=== PATIENT | female | born 1955 | race Caucasian/White ===

== ENCOUNTER 2024-03-01 12:49 | Outpatient (AMB) | payer MEDICARE, SELFPAY ==
--- NOTE | 2024-03-01 12:51 | MHC.OFFVIS ---
Intake Visit Reasons: New Pt - Right Shoulder Pain Intake Note: Zoë is a 68 year old left hand dominant female who presents today as a new patient for a evaluation of her right shoulder pain. Patient reports ongoing pain for a couple months. No previous treatment. She states that she had an shingles and she is still having constant pain. Pain is mainly on the anterior aspect of the shoulder and it moves down to her bicep. Pain is worse when getting dress and putting deodorant. Patient is interested in a cortisone injection. Allergies No Known Allergies Allergy (Verified 03/01/24 13:03) Medication List - Last Reconciled 03/01/24 by Shannon Flower PA-C bupropion HCl SR (Wellbutrin SR) 150 mg PO QAM cholecalciferol (vitamin D3) 50 mcg PO DAILY clonazepam 0.5 mg PO DAILY CPAP As directed hydrochlorothiazide 25 mg PO DAILY lisinopril 20 mg PO DAILY pregabalin (Lyrica) 75 mg PO DAILY trazodone 25 mg PO BEDTIME PRN vortioxetine (Trintellix) 20 mg PO DAILY HPI HPI New Pt - Right Shoulder Pain: Details: 68 yo female presents to the office today eval right shoulder pain. She states the pain started over a year ago, she remembers trying to put on her deodorant and as she was reaching she felt pain. She has tried swimming and states she has been unable to put her arm in certain positions due to the pain, she has pain with lifting the arm to hang clothes. She states she does use her left hand to assist her right with certain motions. She has had no treatment to date. [facility] Social History (Updated 03/01/24 @ 13:08 by Catrachito George) Alcohol intake: never Patient Tobacco Use Status: Current everyday Tobacco user Review of Systems Const All systems reviewed & are unremarkable except as noted in HPI and below Physical Exam Const General: cooperative and no acute distress Orientation/consciousness: patient oriented x3 Resp Effort & Inspection: normal respiratory effort and able to speak in complete sentences Cardio Peripheral pulses: Peripheral pulses 2+ throughout Neuro General: patient oriented x3 Extrem Other: Right shoulder is normal to inspection she has full range of motion in all planes. No RTC weakness on exam. NVI. Office Procedures Joint Injection/Drain Joint Injection/Drain Primary Site: right shoulder Prep: site was prepped using aseptic technique, ethochloride spray was applied and injection warnings given Injected: 80 mg of, DepoMedrol, with 8 mL of, 1% plain lidocaine and in the subcromial space Approach Used: posterolateral Procedure: The patient tolerated the procedure well and there was some relief with the local anesthesia Coding 70681 - Glenohumeral/Tronchanteric Bursa/Intraarticular Procedure code (CPT) selection complete Results Reviewed Results Reviewed: Xrays were obtained in the office today and personally reviewed by me of the right shoulder show ALYSSIA j oa Assessment & Plan Assessment & Plan (1) Osteoarthritis of glenohumeral joint: Code(s): M19.019 - Primary osteoarthritis, unspecified shoulder Category: Medical Qualifiers: Laterality: right Qualified Code(s): M19.011 - Primary osteoarthritis, right shoulder Plan: We discussed options today which include continued conservative management with cortisone injections and physical therapy. She does have significant arthritis on x-rays however given she is not significantly impaired with functionality I do not feel she has a candidate for total shoulder arthroplasty at this time. We discussed benefits of steroid injection. The patient did consent to move forward with the right shoulder injection, which was tolerated well.? I recommended rest, ice and elevation and OTC antiinflammatories prn for discomfort. If symptoms persist over the next 6-8 weeks, they will contact our office, otherwise, prn Orders: Orders XR shoulder RT min 2V Today M25.511 - Pain in right shoulder Coding Level of Care Code New Pt Level 3 (11007) Diagnoses Osteoarthritis of right glenohumeral joint M19.011 Laterality: right CPT Codes Coding - Joint 7: 30766 - Glenohumeral/Tronchanteric Bursa/Intraarticular ([id number])
== END 2024-03-01 14:03 | disposition home or self-care (01) ==
PROVIDERS: PCP Internal Medicine; Visit Provider Physician Assistant
DX: M19.011 Primary osteoarthritis, right shoulder (principal)
CPT/HCPCS: 20610; 99203

== ENCOUNTER 2024-03-01 16:04 | Outpatient (REF) | payer MEDICARE, SELFPAY ==
--- NOTE | ~2024-03-01 | XR_ITS ---
EXAMINATION: XR SHOULDER, RIGHT CLINICAL INFORMATION: Pain in right shoulder COMPARISON: None available. TECHNIQUE: AP neutral, scapular Y and axillary views of the right shoulder. FINDINGS: The bones are mildly diffusely demineralized. No fracture or dislocation. There is severe narrowing of the glenohumeral joint with [id number]-[id number] appearance and subchondral sclerosis of the adjacent articular surfaces. Small marginal osteophytes are seen inferiorly extending off the humeral head and the glenoid fossa. Small calcification is seen adjacent to the humeral head consistent with calcific tendinitis. There is moderate degenerative change of the acromioclavicular joint. XR/XR shoulder RT min 2V IMPRESSION: 1. Severe osteoarthritis of the glenohumeral joint. 2. Calcific tendinitis. 3. Moderate degenerative change of the acromioclavicular joint.
== END 2024-03-01 16:05 | disposition home or self-care (01) ==
LOC: HO.HOSX 16:04
PROVIDERS: Visit Provider Physician Assistant
DX: M19.011 Primary osteoarthritis, right shoulder (principal)
CPT/HCPCS: 20610; 73030; 99202; J1010

== ENCOUNTER 2024-03-28 08:58 | Outpatient (AMB) | payer MEDICARE, SELFPAY ==
--- NOTE | 2024-03-27 15:59 | A.OFFPC_ITS ---
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 Accompanied by: Self / Same As Patient Allergies No Known Allergies Allergy (Verified 03/28/24 09:15) Medication List - Last Reconciled 04/02/24 by Rosalva Stevens MD bupropion HCl 75 mg PO DAILY 7 days cholecalciferol (vitamin D3) 50 mcg PO DAILY clonazepam 0.5 mg PO DAILY PRN CPAP As directed duloxetine 30 mg PO DAILY 7 days duloxetine 60 mg PO DAILY 90 days hydrochlorothiazide 25 mg PO DAILY lisinopril 20 mg PO DAILY vortioxetine (Trintellix) 20 mg PO DAILY Tobacco use date assessed: 03/28/24 Fall risk assessment: 2 + Falls in past year Last assessed Fall Risk: 03/28/24 Dental Screening Dental Screen Date: 03/28/24 Did you have a dental visit in the last 12 months?: Yes Did you have a dental problem in the last 6 months where you did not have access to dental care?: No Was dental information given to patient?: Patient has dentist HPI HPI Comments History of Present Illness Details The patient is a 68 y/o female with pmh post herpetic neuralgia, htn, ckd, anxiety/depression, prediabetes, yaniv on cpap Chronic pain. Post herpetic neuralgia. January 2023 V1. Chronic OA-hips, knees, back Anxiety/depression: Continues with therapist. Two children -drug issues. CV: on lisinopril. hctz. BP controlled. Saw Dr Davis in past following TRUNG. Contributed to NSAID use PFSH Medical History (Updated 03/28/24 @ 09:28 by Rosalva Stevens MD) Shingles Acid reflux Hx of mammogram Severe obesity Seasonal allergies Post herpetic neuralgia Obstructive sleep apnea Anxiety Depression Surgical History Hx of colonoscopy History of right hip replacement Hx of endoscopy Family History Mother Cardiac arrest Father Cancer of prostate Sister Multiple sclerosis Arthritis Social History Housing: House Alcohol intake: never Patient Tobacco Use Status: Current everyday Tobacco user Cigarette Packs Per Day: 0.25 Cigarettes Per Day: 5 Years Smoked: 15 e-Cigarette/Vaping Use: Never Used service: No 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al status: retired Cognitive needs: No Hearing needs: No Vision needs: No Questionnaire PHQ-9 Over the last 2 weeks, how often have you been bothered by any of the following problems? 1. Little interest or pleasure in doing things: several days 2. Feeling down, depressed, or hopeless: several days 3. Trouble falling or staying asleep, or sleeping too much: several days 4. Feeling tired or having little energy: several days 5. Poor appetite or overeating: not at all 6. Feeling bad about yourself - or that you are a failure or have let yourself or your family down: not at all 7. Trouble concentrating on things, such as reading the newspaper or watching television: not at all 8. Moving or speaking so slowly that other people could have noticed. Or the opposite - being so fidgety or restless that you have been moving around a lot more than usual: not at all 9. Thoughts that you would be better off or of hurting yourself in some way: not at all Total score: 4 Depression Screening Interpretation: Positive Depression Screening Follow-up: Existing condition Depression Screening Done: Yes 64035 - PHQ-9 Billing: Yes Source: Developed by Drs. Roly Hamilton, Patty Hadley, Nathaniel Grimes and colleagues, with an educational sarah from [employer]. Thrive Questionnaire Date Thrive assessed: 03/28/24 I am a: Patient What is your living situation today?: I have a steady place to live Within the past 12 months, did the food you bought not last and you didn't have the money to get more?: Never true Within the past 12 months, did you worry whether your food would run out before you got money to buy more?: Never true Do you have trouble paying for medicines?: No Do you have trouble getting transportation to medical appointments?: No Do you have trouble paying your heating and electricity bill?: No Do you have trouble taking care of your child, family member or friend?: No Do you have trouble with day-to-day activities such as bathing, preparing meals, shopping, managing finances, etc.?: No Are you currently unemployed and looking for a job?: No Are you interested in more education?: No Please select the resources that you would like help with: None Currently or been in a relationship where the following occur: no concerns reported THRIVE Score: 0 AUDIT C Alcohol Use Questionnaire (AUDIT-C) 1. How often do you have a drink containing alcohol?: Never 3. How often do you have six or more drinks on one occasion?: Never Total Score: 0 DARIA-7 AMB Questionnaire DARIA-7 Date DARIA - 7 assessed: 03/28/24 Feeling nervous, anxious, or on edge: 1 = Several days Not being able to stop or control worryin = Not at all Worrying too much about different things: 1 = Several days Trouble relaxin = Not at all Being so restless that it is hard to sit still: 0 = Not at all Becoming easily annoyed or irritable: 0 = Not at all Feeling afraid as if something awful might happen: 0 = Not at all Total DARIA-7 score (0-4 normal; 5-9 mild; 10-14 moderate; 15-21 severe): 2 Source: Developed by Drs. Roly Hamilton, Patty Hadley, Nathaniel Grimes and colleagues, with an educational sarah from [employer]. DARIA-7 Assessment Billing DARIA-7 Assessment Tool: DARIA-7 Assessment 57398 Review of Systems Const Details: ROS CONSTITUTIONAL: Denies weight loss, fever and chills. HEENT: Denies changes in vision and hearing. RESPIRATORY: Denies SOB and cough. CV: Denies palpitations and CP GI: Denies abdominal pain, nausea, vomiting and diarrhea. : Denies dysuria and urinary frequency. MSK: Denies new myalgia and joint pain. SKIN: Denies rash and pruritus. NEUROLOGICAL: Denies headache PSYCHIATRIC: Denies recent changes in mood. Physical exam (Primary Care) Vital Signs: Last Vital Signs Temp 98 F 03/28/24 09:05 Pulse 78 03/28/24 09:05 Resp 14 03/28/24 09:05 BP 110/74 03/28/24 09:05 Pulse Ox 99 03/28/24 09:05 Oxygen Delivery Method Room Air 03/28/24 09:05 PHYSICAL EXAM: GENERAL: Alert and oriented x 3. NAD EYES: EOMI. Anicteric. HENT: Moist mucous membranes. No scleral icterus. No cervical lymphadenopathy. LUNGS: Clear to auscultation bilaterally. CARDIOVASCULAR: Regular rate and rhythm. No murmur. No JVD. ABDOMEN: Soft, non-tender +bs EXTREMITIES: No edema. Non-tender. SKIN: No rashes or lesions. Warm. NEUROLOGIC: No focal neurological deficits. CN II-XII grossly intact PSYCHIATRIC: Cooperative. Appropriate mood and affect BMI result Body Mass Index 31.8 Tobacco/Smoking Status: Tobacco use Status Tobacco use date assessed 03/28/24 03/28/24 09:19 Patient Tobacco Use Status Current everyday Tobacco 03/27/24 16:06 e-Cigarette/Vaping Use Never Used 03/28/24 09:19 PHQ-9: PHQ-9 Score PHQ-9: Total score 4 03/28/24 12:01 Depression Screening Interpretation: Positive Depression Screening Follow-up: Existing condition Thrive Assessment: Date of Thrive Assessment Date Thrive assessed 03/28/24 03/28/24 09:19 Currently or been in a relationship where the following occur: no concerns reported Assessment and Plan Assessment & Plan (1) Hypertension: Code(s): I10 - Essential (primary) hypertension Qualifiers: Hypertension type: primary hypertension Qualified Code(s): I10 - Essential (primary) hypertension Plan: Adequately controlled on current medication (2) Depression: Code(s): F32.A - Depression, unspecified Qualifiers: Active/Remission status: in partial remission Depression Type: major depressive disorder Major depression recurrence: recurrent Qualified Code(s): F33.41 - Major depressive disorder, recurrent, in partial remission (3) Post herpetic neuralgia: Code(s): B02.29 - Other postherpetic nervous system involvement (4) Obstructive sleep apnea: Code(s): G47.33 - Obstructive sleep apnea (adult) (pediatric) Plan: continue cpap Orders: Orders PT Evaluation and Treatment 03/28/24 M19.011 - Primary osteoarthritis, right shoulder, M25.511 - Pain in right shoulder Medications: New bupropion HCl 75 mg PO DAILY 7 days 7 tabs 0RF duloxetine Take for one week then increase to 60mg daily 30 mg PO DAILY 7 days 7 caps 0RF duloxetine 60 mg PO DAILY 90 days 90 caps 3RF Coding Level of Care Code Tele Est Pt Level 4 (77268) Complex EM visit Add On G2211 Diagnoses Primary hypertension I10 Hypertension type: primary hypertension Recurrent major depressive disorder, in partial remission F33.41 Active/Remission status: in partial remission Depression Type: major depressive disorder Major depression recurrence: recurrent Post herpetic neuralgia B02.29 Obstructive sleep apnea G47.33 Additional Codes DARIA-7 Assessment Billing - DARIA-7 Assessment Tool: DARIA-7 Assessment 26877 ([id number])
[2024-03-28 09:05] VITALS: BP 110/74; PULSE 78; RESP 14; TEMP 36.6; O2SAT 99; BMI 31.8
== END 2024-03-28 10:08 | disposition home or self-care (01) ==
PROVIDERS: PCP Internal Medicine; Visit Provider Internal Medicine
DX: I10 Essential (primary) hypertension (principal); F33.41 Major depressive disorder, recurrent, in partial remission; B02.29 Other postherpetic nervous system involvement; G47.33 Obstructive sleep apnea (adult) (pediatric)
CPT/HCPCS: 99214; G2211

== ENCOUNTER 2024-06-05 17:06 | Outpatient (AMB) | payer MEDICARE, SELFPAY ==
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
== END 2024-06-05 17:07 | disposition home or self-care (01) ==
LOC: HO.HOP 17:07
PROVIDERS: PCP Internal Medicine; Visit Provider Clinical Nurse Specialist Psychiatric/Mental Health
DX: F33.1 Major depressive disorder, recurrent, moderate (principal); F41.1 Generalized anxiety disorder; F41.0 Panic disorder [episodic paroxysmal anxiety]
CPT/HCPCS: 99213

== ENCOUNTER → 2024-06-05 17:06 | Outpatient (BNVA) | payer MEDICARE, SELFPAY | PROVIDERS: PCP Internal Medicine; Visit Provider Clinical Nurse Specialist Psychiatric/Mental Health | DX: F33.1 Major depressive disorder, recurrent, moderate (principal); F41.1 Generalized anxiety disorder; F41.0 Panic disorder [episodic paroxysmal anxiety] | CPT/HCPCS: 99212 ==

== ENCOUNTER 2024-07-11 10:31 | Outpatient (AMB) | payer MEDICARE, SELFPAY ==
[2024-07-11 11:02] VITALS: BP 132/70; PULSE 82; RESP 12; O2SAT 98; BMI 32.2
--- NOTE | 2024-07-11 11:02 | A.OFFPC_ITS ---
Vital Signs 07/11/24 11:02 Height 5 ft 1.5 in Weight 173 lb BMI 32.2 BP 132/70 Blood Pressure Location Rt brachial Position Sitting Respiration 12 Pulse 82 Pulse Source Pulse Oximeter Pulse Oximetry (%) 98 Oxygen Delivery Method Room Air Intake Visit Reasons: 3 month follow up/ wellness Accompanied by: Self / Same As Patient Allergies No Known Allergies Allergy (Verified 07/11/24 11:05) Tobacco use date assessed: 03/28/24 Fall risk assessment: No Falls in past year Last assessed Fall Risk: 07/11/24 Dental Screening Dental Screen Date: 03/28/24 HPI HPI Comments History of Present Illness Details The patient is a 68 y/o female with pmh post herpetic neuralgia, htn, ckd, anxiety/depression, prediabetes, yaniv on cpap Chronic pain. Post herpetic neuralgia. January 2023 V1. 2 years and 4 months since shingles. On duloxetine. Chronic OA-hips, knees, back Went to the hand surgeon- started PT on the right shoulder. 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 Seeing Dr Castano. Got three cortisone injections in the back. Numbness pain intermittently down to the right shoulder in the right pinky. 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 Anxiety/depression: Continues with therapist. Two children -drug issues. Requests referral CV: on hctz. BP controlled. Saw Dr Davis in past following TRUNG. Contributed to NSAID use. Goes annually ROS CONSTITUTIONAL: Denies weight loss, fever and chills. HEENT: Denies changes in vision and hearing. RESPIRATORY: Denies SOB and cough. CV: Denies palpitations and CP GI: Denies abdominal pain, nausea, vomiting and diarrhea. : Denies dysuria and urinary frequency. MSK: Denies new myalgia and joint pain. SKIN: Denies rash and pruritus. NEUROLOGICAL: Denies headache PSYCHIATRIC: Denies recent changes in mood. PHYSICAL EXAM: GENERAL: Alert and oriented x 3. NAD EYES: EOMI. Anicteric. HENT: Moist mucous membranes. No scleral icterus. No cervical lymphadenopathy. LUNGS: Clear to auscultation bilaterally. CARDIOVASCULAR: Regular rate and rhythm. No murmur. No JVD. ABDOMEN: Soft, non-tender +bs EXTREMITIES: No edema. Non-tender. SKIN: No rashes or lesions. Warm. NEUROLOGIC: No focal neurological deficits. CN II-XII grossly intact PSYCHIATRIC: Cooperative. Appropriate mood and affect [facility] Medical History (Updated 07/11/24 @ 11:24 by Rosalva Stevens MD) Shingles Acid reflux Hx of mammogram Severe obesity Seasonal allergies Post herpetic neuralgia Obstructive sleep apnea Anxiety Depression Surgical History Hx of colonoscopy History of right hip replacement Hx of endoscopy Family History Mother Cardiac arrest Father Cancer of prostate Sister Multiple sclerosis Arthritis Social History Housing: House Alcohol intake: never Patient Tobacco Use Status: Current everyday Tobacco user Cigarette Packs Per Day: 0.25 Cigarettes Per Day: 5 Years Smoked: 15 e-Cigarette/Vaping Use: Never Used service: No 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al status: retired Cognitive needs: No Hearing needs: No Vision needs: No Questionnaire PHQ-9 Over the last 2 weeks, how often have you been bothered by any of the following problems? 1. Little interest or pleasure in doing things: not at all 2. Feeling down, depressed, or hopeless: several days 3. Trouble falling or staying asleep, or sleeping too much: several days 4. Feeling tired or having little energy: not at all 5. Poor appetite or overeating: not at all 6. Feeling bad about yourself - or that you are a failure or have let yourself or your family down: not at all 7. Trouble concentrating on things, such as reading the newspaper or watching television: not at all 8. Moving or speaking so slowly that other people could have noticed. Or the opposite - being so fidgety or restless that you have been moving around a lot more than usual: not at all 9. Thoughts that you would be better off or of hurting yourself in some way: not at all Total score: 2 Depression Screening Interpretation: Negative (neg) Depression Screening Done: Yes Source: Developed by Drs. Roly Hamilton, Patty Hadley, Nathaniel Grimes and colleagues, with an educational sarah from [employer]. Thrive Questionnaire Date Thrive assessed: 03/28/24 I am a: Patient What is your living situation today?: I have a steady place to live Within the past 12 months, did the food you bought not last and you didn't have the money to get more?: Never true Within the past 12 months, did you worry whether your food would run out before you got money to buy more?: Never true Do you have trouble paying for medicines?: No Do you have trouble getting transportation to medical appointments?: No Do you have trouble paying your heating and electricity bill?: No Do you have trouble taking care of your child, family member or friend?: No Do you have trouble with day-to-day activities such as bathing, preparing meals, shopping, managing finances, etc.?: No Are you currently unemployed and looking for a job?: No Are you interested in more education?: No Please select the resources that you would like help with: None Currently or been in a relationship where the following occur: No concerns reported THRIVE Score: 0 AUDIT C Alcohol Use Questionnaire (AUDIT-C) 1. How often do you have a drink containing alcohol?: 2-4 times a month 2. How many drinks containing alcohol do you have on a typical day when you are drinking?: 1 or 2 3. How often do you have six or more drinks on one occasion?: Never Total Score: 2 DARIA-7 AMB Questionnaire DARIA-7 Date DARIA - 7 assessed: 03/28/24 Feeling nervous, anxious, or on edge: 0 = Not at all Not being able to stop or control worryin = Not at all Worrying too much about different things: 0 = Not at all Trouble relaxin = Not at all Being so restless that it is hard to sit still: 0 = Not at all Becoming easily annoyed or irritable: 0 = Not at all Feeling afraid as if something awful might happen: 0 = Not at all Total DARIA-7 score (0-4 normal; 5-9 mild; 10-14 moderate; 15-21 severe): 0 Source: Developed by Drs. Roly Hamilton, Patty Hadley, Nathaniel Grimes and colleagues, with an educational sarah from [employer]. Physical exam (Primary Care) Vital Signs: Last Vital Signs Pulse 82 07/11/24 11:02 Resp 12 07/11/24 11:02 BP 132/70 07/11/24 11:02 Pulse Ox 98 07/11/24 11:02 Oxygen Delivery Method Room Air 07/11/24 11:02 BMI result Body Mass Index 32.2 Tobacco/Smoking Status: Tobacco use Status Tobacco use date assessed 03/28/24 07/11/24 11:07 Patient Tobacco Use Status Current everyday Tobacco 07/11/24 11:07 e-Cigarette/Vaping Use Never Used 07/11/24 11:07 PHQ-9: PHQ-9 Score PHQ-9: Total score 2 07/11/24 13:41 Depression Screening Interpretation: Negative (neg) Thrive Assessment: Date of Thrive Assessment Date Thrive assessed 03/28/24 07/11/24 11:07 Currently or been in a relationship where the following occur: No concerns reported Assessment and Plan Assessment & Plan Orders: Orders XR cervical spine 2V 07/11/24 M54.12 - Radiculopathy, cervical region, M54.2 - Cervicalgia Referrals Behavioral Health Referral F33.1 - Major depressive disorder, recurrent, moderate, F41.0 - Panic disorder [episodic paroxysmal anxiety], F41.1 - Generalized anxiety disorder Medications: New cyclobenzaprine 10 mg (2 x 5 mg) PO BEDTIME PRN 60 tabs 3RF muscle spasm 30 days valacyclovir (Valtrex) 1,000 mg PO BID 10 tabs 0RF 5 days Coding Level of Care Code Est Pt Level 5 (21746) Time Spent (min) 46
== END 2024-07-11 14:29 | disposition home or self-care (01) ==
PROVIDERS: PCP Internal Medicine; Visit Provider Internal Medicine
DX: M54.12 Radiculopathy, cervical region (principal); F33.1 Major depressive disorder, recurrent, moderate; F41.0 Panic disorder [episodic paroxysmal anxiety]; F41.1 Generalized anxiety disorder

== ENCOUNTER → 2024-07-11 10:31 | Outpatient (BNVA) | payer MEDICARE, SELFPAY | PROVIDERS: PCP Internal Medicine; Visit Provider Internal Medicine | DX: M54.12 Radiculopathy, cervical region (principal); F33.1 Major depressive disorder, recurrent, moderate; F41.0 Panic disorder [episodic paroxysmal anxiety]; F41.1 Generalized anxiety disorder | CPT/HCPCS: 99212 ==

== ENCOUNTER 2024-08-10 14:00 | Outpatient (AMB) | payer MEDICARE, SELFPAY ==
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
== END 2024-08-10 14:53 | disposition home or self-care (01) ==
LOC: HO.HOP 14:00
PROVIDERS: PCP Internal Medicine; Visit Provider Clinical Nurse Specialist Psychiatric/Mental Health
DX: F33.1 Major depressive disorder, recurrent, moderate (principal); F41.1 Generalized anxiety disorder; F41.0 Panic disorder [episodic paroxysmal anxiety]
CPT/HCPCS: 90833; 99214

== ENCOUNTER → 2024-08-10 14:00 | Outpatient (BNVA) | payer MEDICARE, SELFPAY | PROVIDERS: PCP Internal Medicine; Visit Provider Clinical Nurse Specialist Psychiatric/Mental Health | DX: F33.1 Major depressive disorder, recurrent, moderate (principal); F41.1 Generalized anxiety disorder; F41.0 Panic disorder [episodic paroxysmal anxiety]; Z71.89 Other specified counseling | CPT/HCPCS: 99212 ==

== ENCOUNTER 2024-09-15 11:04 | Outpatient (AMB) | payer MEDICARE, SELFPAY ==
--- NOTE | 2024-09-15 11:22 | A.OFFPC_ITS ---
Vital Signs 09/15/24 11:24 Height 5 ft 1.5 in Weight 176 lb BMI 32.7 BP 126/78 Blood Pressure Location Lt brachial Position Sitting Temp 98.2 F Intake Visit Reasons: Lingering Diarrhea Intake Note: Diarrhea off and on for 12 days. 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 lower abdomen sensitive, gurgly. Worse with any alcohol-even if small amount. She started the BRAT diet, probiotics and Imodium. The stool has become slightly more formed in the past week. No fevers. No blood in the stool. Chronic pain. Post herpetic neuralgia. January 2023 V1. 2 years and 4 months since shingles. On duloxetine. Chronic OA-hips, knees, back Went to the hand surgeon- started PT on the right shoulder. 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 Seeing Dr Castano. Got three cortisone injections in the back. Numbness pain intermittently down to the right shoulder in the right pinky. 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 Anxiety/depression: Continues with therapist. Two children -drug issues. CV: on hctz. BP controlled. Saw Dr Davis in past following TRUNG. Contributed to NSAID use. Goes annually Colonoscopy with polypectomy 2014 ROS CONSTITUTIONAL: Denies weight loss, fever and chills. HEENT: Denies changes in vision and hearing. RESPIRATORY: Denies SOB and cough. CV: Denies palpitations and CP GI: Denies abdominal pain, nausea, vomiting and diarrhea. : Denies dysuria and urinary frequency. MSK:Finger pain SKIN: Denies rash and pruritus. NEUROLOGICAL: Denies headache PSYCHIATRIC: Denies recent changes in mood. PHYSICAL EXAM: GENERAL: Alert and oriented x 3. NAD EYES: EOMI. Anicteric. HENT: Moist mucous membranes. No scleral icterus. No cervical lymphadenopathy. LUNGS: Clear to auscultation bilaterally. CARDIOVASCULAR: Regular rate and rhythm. No murmur. No JVD. ABDOMEN: Soft, non-tender +bs EXTREMITIES: No edema. Non-tender. SKIN: No rashes or lesions. Warm. NEUROLOGIC: No focal neurological deficits. CN II-XII grossly intact PSYCHIATRIC: Cooperative. Appropriate mood and affect [facility] Medical History (Updated 09/15/24 @ 15:26 by Rosalva Stevens MD) Shingles Acid reflux Hx of mammogram Severe obesity Seasonal allergies Post herpetic neuralgia Obstructive sleep apnea Anxiety Depression Surgical History Hx of colonoscopy History of right hip replacement Hx of endoscopy Family History Mother Cardiac arrest Father Cancer of prostate Sister Multiple sclerosis Arthritis Social History Housing: House Alcohol intake: never Patient Tobacco Use Status: Current everyday Tobacco user Cigarette Packs Per Day: 0.25 Cigarettes Per Day: 5 Years Smoked: 15 e-Cigarette/Vaping Use: Never Used service: No 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al status: retired Cognitive needs: No Hearing needs: No Vision needs: No Questionnaire Thrive Questionnaire Date Thrive assessed: 07/11/24 I am a: Patient What is your living situation today?: I have a steady place to live Within the past 12 months, did the food you bought not last and you didn't have the money to get more?: Never true Within the past 12 months, did you worry whether your food would run out before you got money to buy more?: Never true Do you have trouble paying for medicines?: No Do you have trouble getting transportation to medical appointments?: No Do you have trouble paying your heating and electricity bill?: No Do you have trouble taking care of your child, family member or friend?: No Do you have trouble with day-to-day activities such as bathing, preparing meals, shopping, managing finances, etc.?: No Are you currently unemployed and looking for a job?: No Are you interested in more education?: No Please select the resources that you would like help with: None Currently or been in a relationship where the following occur: No concerns reported THRIVE Score: 0 DARIA-7 AMB Questionnaire DARIA-7 Date DARIA - 7 assessed: 03/28/24 Source: Developed by Drs. Roly Hamilton, Patty Hadley, Nathaniel Grimes and colleagues, with an educational sarah from [employer]. Physical exam (Primary Care) Vital Signs: Last Vital Signs Temp 98.2 F 09/15/24 11:24 BP 126/78 09/15/24 11:24 BMI result Body Mass Index 32.7 Tobacco/Smoking Status: Tobacco use Status Tobacco use date assessed 03/28/24 09/15/24 11:28 Patient Tobacco Use Status Current everyday Tobacco 09/15/24 11:28 e-Cigarette/Vaping Use Never Used 09/15/24 11:28 Thrive Assessment: Date of Thrive Assessment Date Thrive assessed 07/11/24 09/15/24 11:28 Currently or been in a relationship where the following occur: No concerns reported Coding Level of Care Code Est Pt Level 4 (38565) Diagnoses Diarrhea, unspecified type R19.7 Diarrhea type: unspecified type Mallet finger of right finger(s) M20.011 Assessment & Plan Assessment & Plan (1) Diarrhea: Code(s): R19.7 - Diarrhea, unspecified Category: Medical Qualifiers: Diarrhea type: unspecified type Qualified Code(s): R19.7 - Diarrhea, unspecified Plan: Lab orderes, stool testing ordered Soon due for colonoscopy. Referral to gastroenterology Recommend metamucil to bulk the stool continue bland diet. Advance slowly (2) Mallet finger of right finger(s): Code(s): M20.011 - Mallet finger of right finger(s) Category: Medical Plan: referral to hand surgery. Orders: Orders Comprehensive Met. Panel Today R19.7 - Diarrhea, unspecified Erythrocyte Sedimentation Rate Today R19.7 - Diarrhea, unspecified Pancreatic Elastase-1 Today R19.7 - Diarrhea, unspecified Ova and Parasite Today R19.7 - Diarrhea, unspecified Complete Blood Count Auto Diff Today R19.7 - Diarrhea, unspecified Celiac Disease Panel Today R19.7 - Diarrhea, unspecified Calprotectin, Fecal Today R19.7 - Diarrhea, unspecified Referrals Orthopedics Referral M20.011 - Mallet finger of right finger(s) Gastroenterology Referral R19.7 - Diarrhea, unspecified
[2024-09-15 11:24] VITALS: BP 126/78; TEMP 36.8; BMI 32.7
== END 2024-09-15 16:38 | disposition home or self-care (01) ==
PROVIDERS: PCP Internal Medicine; Visit Provider Internal Medicine
DX: R19.7 Diarrhea, unspecified (principal); M20.011 Mallet finger of right finger(s)

== ENCOUNTER → 2024-09-15 11:04 | Outpatient (BNVA) | payer MEDICARE, SELFPAY | PROVIDERS: PCP Internal Medicine; Visit Provider Internal Medicine ==

== ENCOUNTER 2024-09-15 13:05 | Outpatient (REF) | payer MEDICARE, SELFPAY ==
[2024-09-15 14:22] LABS: Basophils Absolute Auto 0.1 X10*3/uL (0.0-0.2); Basophils Percent Auto 0.8 % (0-2); Eosinophils Absolute Auto 0.1 X10*3/uL (0.0-0.4); Eosinophils Percent Auto 1.5 % (0-4); Hemoglobin 13.2 g/dl (12.0-16.0); Imm Gran Abs Auto 0.04 X10*3/uL (0.00-0.03); Imm Gran Pct Auto 0.5 % (0.0-0.4); Lymphocytes Absolute Auto 1.7 X10*3/uL (1.2-4.9); Lymphocytes Percent Auto 21.2 % (20-40); MANUAL DIFF FLAG SCAN; Mean Corpuscular HGB Conc 33.8 g/dl (31.0-35.0); Mean Corpuscular Hemoglobin 32.3 pg (27.0-33.0); Mean Corpuscular Volume 95.4 fL (80.0-98.0); Mean Platelet Volume 11.6 fL (9.4-12.3); Monocytes Absolute Auto 0.9 X10*3/uL (0.1-1.2); Monocytes Percent Auto 11.2 % (2-11); Neutrophils Absolute Auto 5.1 x10*3/uL (2.0-8.3); Neutrophils Percent Auto 64.8 % (45-73); PLT CLUMP 1; Red Blood Count 4.09 X10*6/uL (4.20-5.50); Red Cell Distribution Width 13.2 % (11.0-16.0); SCAN SMEAR FLAG 1
[2024-09-15 14:24] LABS: White Blood Count 7.9 X10*3/uL (4.8-10.8)
[2024-09-15 14:49] LABS: Platelet Count 263 X10*3/uL (160-400); SLIDE REVIEW VERIFIED
[2024-09-15 14:51] LABS: Alanine Aminotransferase 66 U/L (0-31); Albumin Level 4.3 g/dL (3.5-5.0); Alkaline Phosphatase 72 U/L (39-117); Anion Gap 14 (12-20); Aspartate Amino Transferase 58 U/L (5-31); Bilirubin Total 0.2 mg/dL (0.0-1.0); Blood Urea Nitrogen 15 mg/dL (9-16); Calcium 10.2 mg/dL (8.4-10.2); Carbon Dioxide 27 mmol/L (22-29); Chloride 101 mmol/L (96-108); Estimated Glomerular Filt Rate > 60; Glucose Random 97 mg/dL (60-115); Potassium 3.7 mmol/L (3.3-5.1); Sodium 138 mmol/L (135-145); Total Protein 7.8 g/dL (6.5-8.0)
[2024-09-15 15:01] LABS: Erythrocyte Sedimentation Rate 57 MM/HR (0-20)
[2024-09-18 20:28] LABS: Immunoglobulin A 345 mg/dL (70-320); Transglutaminase IgA <1.0 U/mL
== END 2024-09-15 13:06 | disposition home or self-care (01) ==
LOC: HO.WFDLDS 13:05
PROVIDERS: Visit Provider Internal Medicine
DX: R19.7 Diarrhea, unspecified (principal)
CPT/HCPCS: 36415; 80053; 82784; 85025; 85652; 86364; 99212

== ENCOUNTER 2024-09-22 | Outpatient (REF) | payer MEDICARE, SELFPAY ==
[2024-10-01 01:39] LABS: Calprotectin, Fecal 175 mcg/g
== END 2024-09-22 00:01 | disposition home or self-care (01) ==
LOC: HO.LNP
PROVIDERS: Visit Provider Internal Medicine
DX: R19.7 Diarrhea, unspecified (principal)
CPT/HCPCS: 83993; 87177; 87209

== ENCOUNTER 2024-10-02 12:41 | Outpatient (REF) | payer MEDICARE, SELFPAY ==
[2024-10-08 14:33] LABS: Pancreatic Elastase-1 348 mcg/g (>200)
== END 2024-10-02 12:42 | disposition home or self-care (01) ==
LOC: HO.LNP 12:41
PROVIDERS: Visit Provider Internal Medicine
DX: R19.7 Diarrhea, unspecified (principal)
CPT/HCPCS: 82656

== ENCOUNTER 2024-10-17 11:13 | Outpatient (AMB) | payer MEDICARE, SELFPAY ==
--- NOTE | 2024-10-17 11:46 | A.OFFVIS_ITS ---
Vital Signs 10/17/24 11:49 Height 5 ft 1.5 in Weight 176 lb BMI 32.7 Intake Visit Reasons: NProb- Mallet finger of right MF Intake Note: Rosemary 68 yr old left hand dominant female presents today for a new problem visit for her right mallet middle finger. States her finger has a curve at her DIP that started about 6 months ago. SDhe is having difficulty when using a knife or holding a cup. Has attended O.T who gave her a splint to use at night. States splint did not help. Denies numbness, tingling or locking of any finger. No injury she can recall. Allergies No Known Allergies Allergy (Verified 10/17/24 11:49) HPI HPI NProb- Mallet finger of right MF: Details: The patient is a 68-year-old woman who is seen today complaining of a right middle finger mallet finger that she has had for about 6 months. She is also noticing that she is starting to get a flexion deformity of her right middle finger PIP joint, and complains that her index and ring fingers do not feel like they are working normally now either. She denies any known injury. [facility] Medical History (Updated 10/17/24 @ 12:24 by Keke Villalta MD) Shingles Acid reflux Hx of mammogram Severe obesity Seasonal allergies Post herpetic neuralgia Obstructive sleep apnea Anxiety Depression Surgical History Hx of colonoscopy History of right hip replacement Hx of endoscopy Family History Mother Cardiac arrest Father Cancer of prostate Sister Multiple sclerosis Arthritis Social History (Updated 10/17/24 @ 11:55 by MICHAELA Alfaro) Housing: House Alcohol intake: never Patient Tobacco Use Status: Current everyday Tobacco user Cigarette Packs Per Day: 0.25 Cigarettes Per Day: 5 Years Smoked: 15 e-Cigarette/Vaping Use: Never Used service: No 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al status: retired 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 Cognitive needs: No Hearing needs: No Vision needs: No Physical Exam Vital Signs: BMI result Body Mass Index 32.7 Const General: cooperative, healthy appearing and no acute distress Orientation/consciousness: oriented to person and oriented to place HEENT Head: Yes normocephalic and Yes atraumatic Eyes EOM: EOMs intact bilaterally Resp Effort & Inspection: normal respiratory effort and able to speak in complete sentences Cardio Jugular venous distension: no JVD Skin General skin exam: turgor normal Rashes: no rashes Neuro General: oriented to person and oriented to place Extrem Other: Evaluation of right Upper Extremity: Neuro: Median, ulnar, radial nerves motor and sensory intact. Vascular: Cap refill brisk. ROM: She can bring all of her fingers close to a tight fist. When she brings all of her fingers out into extension she clearly has a mallet finger of the right middle finger D IP joint. She also appears to be developing a flexion contracture of the right middle finger PIP joint. We did some stretching exercises in clinic where I had her place her hand flat on the table and stretch it. After this she was better able to bring her middle finger into full extension on the table. She can then maintain it extended, except for the mallet finger. She appears to have relatively normal range of motion in the index and ring fingers today Skin: No lacerations or abrasions. General: No eccymosis. No erythema or evidence of infection. Radiographs: None available today. Patient reports that she had some radiographs done by her primary care physician who said there was no fracture. Psych Appearance: grossly normal Affect: normal affect Attitude: cooperative Assessment & Plan Assessment & Plan (1) Mallet deformity of right middle finger: Code(s): M20.011 - Mallet finger of right finger(s) Category: Medical Plan Assessment and plan: 1. Right middle finger mallet finger Began in approximately March of 2024. 2. Right middle finger PIP joint stiffness, and generalized stiffness/discomfort of the index and ring fingers per patient The patient says she has already tried OT and did not feel that this splint that they gave her to wear for a few hours a day was doing much good. I educated her about these conditions We discussed operative and non operative treatment options. She would like to start with an attempt at non operative treatment. We fitted her with a Stax splint today and provided her with a 2nd 1. I educated her about the importance of 24/7 splinting x6 weeks and what that entails. She says she is going to try this. She understands if it does not work we could pin the D IP joint in extension for 6 weeks. I also talked to her about an arthrodesis, but I am not recommending this, and she does not want it. She will follow up in 6 weeks to see how she is doing. She knows that if she is doing well that she will then need 6 more weeks of splinting for about 8 hours per day. No radiographs are necessary Coding Level of Care Code New Pt Level 4 (71472) Diagnoses Mallet deformity of right middle finger M20.011
[2024-10-17 11:49] VITALS: BMI 32.7
== END 2024-10-17 12:30 | disposition home or self-care (01) ==
PROVIDERS: PCP Internal Medicine; Visit Provider Orthopaedic Surgery
DX: M20.011 Mallet finger of right finger(s) (principal)
CPT/HCPCS: 99204

== ENCOUNTER → 2024-10-17 11:13 | Outpatient (BNVA) | payer MEDICARE, SELFPAY | PROVIDERS: PCP Internal Medicine; Visit Provider Orthopaedic Surgery | DX: M20.011 Mallet finger of right finger(s) (principal) | CPT/HCPCS: 99202 ==

== ENCOUNTER 2024-11-24 11:38 | Outpatient (REF) | payer MEDICARE, SELFPAY ==
--- OUTSIDE RECORDS SUMMARY | 2024-11-24 12:52 | XMS_ITS | Clinical Summary ---
Author Organization [facility] Address [address] [place] [address] Care Team Providers Care Cafeteria Manager Name Role Phone Rosalva Stevens MD Primary Care Provider [phone] Surgical History Surgery Date Site/Laterality Comments NECK SURGERY age 1 PROCEDURE: HISTORICAL NECK SURGERY; COMMENT: Brachial cleft cyst removal HAND SURGERY PROCEDURE: HISTORICAL HAND SURGERY; COMMENT: Trigger finger OTHER SURGICAL HISTORY PROCEDURE: [place] DILATION & CURETTAGE DX&/THER NONOBSTETRIC COLONOSCOPY 04/17/2015 PROCEDURE: HISTORICAL COLONOSCOPY; COMMENT: tics and hyperplastic polyp; repeat in 10 yrs under propofol UPPER GASTROINTESTINAL ENDOSCOPY 04/04/2018 PROCEDURE: [place] UPPER GI ENDOSCOPY PERFORMED; COMMENT: Large paraesophageal [...] 11:20 AM EST Appointment Radiology Department - [address] [phone] 03/21/2025 1:15 PM EDT Office Visit Nephrology - [address] [phone] Te Davis MD [address] [facility] [address] [place] [address] Health Maintenance Due Date Last [...] classified as having normal bone density. The [facility] Department of Internal Medicine recommends using [...] of fracture risk by FRAX. Procedure Note Sabi Sampson MD - 10/13/2022 BONE DENSITY Lumbar [...] beclassified as having normal bone density. The [facility] Department of Internal Medicine recommendsusing National [...] Recently Relevant to Health Maintenance Care Teams Cafeteria Manager Relationship Specialty Start Date End Date Rosalva Stevens MD PCP - General 07/09/15
[2024-11-24 13:22] LABS: MANUAL DIFF FLAG NO
[2024-11-24 13:29] LABS: Basophils Absolute Auto 0.1 X10*3/uL (0.0-0.2); Basophils Percent Auto 0.9 % (0-2); Eosinophils Absolute Auto 0.1 X10*3/uL (0.0-0.4); Eosinophils Percent Auto 1.7 % (0-4); Hematocrit 38.2 % (37.0-47.0); Hemoglobin 12.6 g/dl (12.0-16.0); Imm Gran Abs Auto 0.04 X10*3/uL (0.00-0.03); Imm Gran Pct Auto 0.6 % (0.0-0.4); Lymphocytes Absolute Auto 1.6 X10*3/uL (1.2-4.9); Lymphocytes Percent Auto 22.4 % (20-40); Mean Corpuscular Volume 94.1 fL (80.0-98.0); Mean Platelet Volume 10.5 fL (9.4-12.3); Monocytes Absolute Auto 0.7 X10*3/uL (0.1-1.2); Monocytes Percent Auto 10.4 % (2-11); Neutrophils Absolute Auto 4.5 x10*3/uL (2.0-8.3); Platelet Count 269 X10*3/uL (160-400); Red Blood Count 4.06 X10*6/uL (4.20-5.50)
[2024-11-24 13:55] LABS: C Reactive Protein < 0.10 mg/dL (< or = 0.50)
[2024-11-24 14:10] LABS: Ferritin 129 ng/mL (10-250); Vitamin D 25-OH Total 52.7 ng/mL (>30)
[2024-11-24 14:24] LABS: Folate 18.5 ng/mL (> or = 4.0); Vitamin B12 824 pg/mL (200-900)
[2024-11-25 04:29] LABS: HBS Num1 0.22 mIU/mL (0-7.99); HBc Num1 0.13 S/CO (0.00-0.79); HBsAGNum1 0.37 S/CO (0.00-0.99); Hepatitis A Antibody IgM 0.14 Index (0-0.79); Hepatitis B Core Antibody Nonreactive (Nonreactive); Hepatitis B Surface Antigen Negative (Negative); ~HepC Num1 0.79 S/CO (0.00-0.79); ~Hepatitis A Antibody IgM Nonreactive (Nonreactive); ~Hepatitis B Surface Antibody NONREACTIVE (Nonreactive); ~Hepatitis C Antibody Nonreactive (Nonreactive)
[2024-11-27 16:33] LABS: Transglutaminase IgA <1.0 U/mL
[2024-11-28 00:14] LABS: Zinc 62 mcg/dL (60-130)
[2024-11-28 10:08] LABS: Mitochondrial Antibodies NEGATIVE (NEGATIVE)
[2024-11-29 00:44] LABS: Vitamin A 87 mcg/dL (38-98)
[2024-11-29 10:04] LABS: Smooth Muscle Antibody <20 U (<20)
[2024-11-29 14:43] LABS: Nicotinamide <20 ng/mL (see note); Vit B3 - Nicotinic Acid <20 ng/mL (see note); Vitamin B5 (Pantothenic Acid) 134 ng/mL (<275)
[2024-12-01 06:28] LABS: Vitamin C 1.4 mg/dL (0.3-2.7)
[2024-12-09 12:12] LABS: Vitamin B1 27 nmol/L (8-30)
== END 2024-11-24 11:39 | disposition home or self-care (01) ==
LOC: HO.LAB 11:38
PROVIDERS: PCP Internal Medicine; Visit Provider Internal Medicine Gastroenterology
DX: R19.7 Diarrhea, unspecified (principal); R79.89 Other specified abnormal findings of blood chemistry
CPT/HCPCS: 36415; 82180; 82306; 82550; 82607; 82728; 82746; 83735; 84207; 84425; 84590; 84591; 84630; 85025; 86015; 86140; 86364; 86381; 86704; 86706; 86709; 86803; 87340; 99202

== ENCOUNTER 2024-11-24 11:38 | Outpatient (AMB) | payer MEDICARE, SELFPAY ==
--- NOTE | 2024-11-24 11:43 | MHC.OFFVIS ---
Vital Signs 11/24/24 11:48 Height 5 ft 1 in Weight 173 lb BMI 32.7 BP 124/74 Blood Pressure Location Lt brachial Position Sitting Pulse 80 Intake Visit Reasons: Diarrhea Intake Note: patient new consult for diarrhea. Patient cc: Burping on and off, light headaches, denies any other gI issue for today. Diarrhea on and off was in August 2024. Allergies No Known Allergies Allergy (Verified 11/24/24 11:41) HPI HPI Diarrhea: Details: HPI 68 yr old f w/ DARIA, FIDEL< HTN, OA here for assessment of burping and prior issues with diarrhea She had a week of dirrhea 08/17 she had raised faecal calprotectin she noted gas sx and cramps she modified diet she feels better now she has bouts of lightheaded ness recently has been good, stool has been more consistent no blood in stool, no melena she denies nsaids not taking aspirin she can food getting stuck and burping mid chest area-- she takes PPI intermittently appetite is good weight is stable she has had colonoscopy 5 yrs ago --normal per her EGD 2018 for atypical chest pain ROS: Constitutional : No Weight loss, No Fever, No Chills ENT/Mouth : No sore throat, No Rhinorrhea Eyes: No Swelling, No Redness Cardiovascular : No Chest Pain, No SOB, No Edema Respiratory : No Cough, No Sputum, No Wheezing Gastrointestinal : see HPI Genitourinary : NO Dysuria, No Urinary Frequency, No Hematuria, No Urgency Musculoskeletal : + joint pain, No Myalgias, No Joint Swelling Skin : No Skin Lesions, No rash Neuro : No Weakness, No Numbness, No Dizziness, she has post herpetic neuralgia over her face Psych : No Anxiety/Panic, No Depression Heme/Lymph: No Bruising, No Lymphadenopathy Endocrine : No Polyuria, No Polydipsia All other systems reviewed and are negative. Medical History Shingles Acid reflux Hx of mammogram Severe obesity Seasonal allergies Post herpetic neuralgia Obstructive sleep apnea Anxiety Depression Surgical History Hx of colonoscopy History of right hip replacement Hx of endoscopy Family History Mother Cardiac arrestFather Cancer of prostateSister Multiple sclerosis Arthritis Social History Housing: House Alcohol intake: never Patient Tobacco Use Status: Current everyday Tobacco user Cigarette Packs Per Day: 0.25 Cigarettes Per Day: 5 Years Smoked: 15 e-Cigarette/Vaping Use: Never Used service: No 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al status: retired Cognitive needs: No Hearing needs: No Vision needs: No EXAM: GENERAL: The patient is well developed and nontoxic. VITAL SIGNS:see workflow HEENT: Nonicteric sclerae, PERRLA, EOMI. Oropharynx clear. Moist mucous membranes. Conjunctivae appear well perfused. No thyroid mass. CHEST: Chest wall is nontender. HEART: Regular rate and rhythm without murmurs. LUNGS: Clear to auscultation bilaterally. ABDOMEN: Soft, positive bowel sounds, nontender, no organomegaly.no flank tenderness SKIN: No rash, no excessive bruising, petechiae, or purpura. NEUROLOGIC: Cranial nerves II-XII intact without motor/sensory deficit. Psych: normal affect A/P: 1/ Abn LFT, prob PADRON 2/ needs colonoscopy, high fecal ira, abn swallowing PLAN: 1/ EGD and colo with suprep--abn swallowing and bowel habit 2/ US liver and liver serologies PFSH Medical History (Updated 11/24/24 @ 12:15 by Kristal Castellanos MD) Shingles Acid reflux Hx of mammogram Severe obesity Seasonal allergies Post herpetic neuralgia Obstructive sleep apnea Anxiety Depression Surgical History Hx of colonoscopy History of right hip replacement Hx of endoscopy Family History Mother Cardiac arrest Father Cancer of prostate Sister Multiple sclerosis Arthritis Social History Housing: House Alcohol intake: never Patient Tobacco Use Status: Current everyday Tobacco user Cigarette Packs Per Day: 0.25 Cigarettes Per Day: 5 Years Smoked: 15 e-Cigarette/Vaping Use: Never Used service: No 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al status: retired 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 Cognitive needs: No Hearing needs: No Vision needs: No Assessment & Plan Assessment & Plan (1) Diarrhea: Code(s): R19.7 - Diarrhea, unspecified Category: Medical Qualifiers: Diarrhea type: unspecified type Qualified Code(s): R19.7 - Diarrhea, unspecified Plan: see MUSTAPHA (2) Abnormal LFTs: Code(s): R79.89 - Other specified abnormal findings of blood chemistry Category: Medical Plan: see above Orders: Orders US abdomen daniel w elastography Today K74.60 - Unspecified cirrhosis of liver, K75.81 - Nonalcoholic steatohepatitis (PADRON) Complete Blood Count Auto Diff Today R19.7 - Diarrhea, unspecified, R79.89 - Other specified abnormal findings of blood chemistry Magnesium Today R19.7 - Diarrhea, unspecified, R79.89 - Other specified abnormal findings of blood chemistry Vitamin B1 Today R19.7 - Diarrhea, unspecified, R79.89 - Other specified abnormal findings of blood chemistry Vitamin B3 (Niacin) Today R19.7 - Diarrhea, unspecified, R79.89 - Other specified abnormal findings of blood chemistry Vitamin B5 (Pantothenic Acid) Today R19.7 - Diarrhea, unspecified, R79.89 - Other specified abnormal findings of blood chemistry Vitamin C Today R19.7 - Diarrhea, unspecified, R79.89 - Other specified abnormal findings of blood chemistry Vitamin D 25-OH Total Today R19.7 - Diarrhea, unspecified, R79.89 - Other specified abnormal findings of blood chemistry Hepatitis A,B,C Profile Today R19.7 - Diarrhea, unspecified, R79.89 - Other specified abnormal findings of blood chemistry C Reactive Protein Today R19.7 - Diarrhea, unspecified, R79.89 - Other specified abnormal findings of blood chemistry Smooth Muscle Antibody Today R19.7 - Diarrhea, unspecified, R79.89 - Other specified abnormal findings of blood chemistry Ferritin Today R19.7 - Diarrhea, unspecified, R79.89 - Other specified abnormal findings of blood chemistry Mitochondrial Antibody Today R19.7 - Diarrhea, unspecified, R79.89 - Other specified abnormal findings of blood chemistry Transglutaminase IgA Today R79.89 - Other specified abnormal findings of blood chemistry Vitamin B12 and Folate Today R19.7 - Diarrhea, unspecified, R79.89 - Other specified abnormal findings of blood chemistry Zinc Today R19.7 - Diarrhea, unspecified, R79.89 - Other specified abnormal findings of blood chemistry Vitamin A Today R19.7 - Diarrhea, unspecified, R79.89 - Other specified abnormal findings of blood chemistry Vitamin B6 Today R19.7 - Diarrhea, unspecified, R79.89 - Other specified abnormal findings of blood chemistry Creatine Kinase Total Today R19.7 - Diarrhea, unspecified, R79.89 - Other specified abnormal findings of blood chemistry Medications: New sodium,potassium,mag sulfates 17.5-3.13-1.6 gram (Suprep Bowel Prep Kit) DILUTE; drink 1/2 at 6-8 pm and half at 11 PM- 1AM 354 mL 0RF zinc acetate (Galzin) 25 mg PO DAILY 30 caps 2RF Coding Level of Care Code New Pt Level 4 (44414) Diagnoses Diarrhea, unspecified type R19.7 Diarrhea type: unspecified type Abnormal LFTs R79.89
[2024-11-24 11:48] VITALS: BP 124/74; PULSE 80; BMI 32.7
--- OUTSIDE RECORDS SUMMARY | 2024-11-24 12:19 | XMS_ITS | Clinical Summary ---
Author Organization [facility] Address [address] [place] [address] Care Team Providers Care Knit Goods Cutter Hand Name Role Phone Rosalva Stevens MD Primary Care Provider [phone] Surgical History Surgery Date Site/Laterality Comments NECK SURGERY age 1 PROCEDURE: HISTORICAL NECK SURGERY; COMMENT: Brachial cleft cyst removal HAND SURGERY PROCEDURE: HISTORICAL HAND SURGERY; COMMENT: Trigger finger OTHER SURGICAL HISTORY PROCEDURE: DE DILATION & CURETTAGE DX&/THER NONOBSTETRIC COLONOSCOPY 04/17/2015 PROCEDURE: HISTORICAL COLONOSCOPY; COMMENT: tics and hyperplastic polyp; repeat in 10 yrs under propofol UPPER GASTROINTESTINAL ENDOSCOPY 04/04/2018 PROCEDURE: DE UPPER GI ENDOSCOPY PERFORMED; COMMENT: Large paraesophageal hiatal hernia. No mucosal lesions, on H2 rx. Medical History Medical History Date Comments Adjustment disorder with mix ed anxiety and depressed mood DX:Adjustment disorder with mixed anxiety and depressed mood Obesity, unspecified DX:Obesity, unspecified Essential hypertension, benign D X:Essential hypertension, benign Colon polyp 04/08 DX:Colon polyp Sleep apnea 07/08/2009 DX:Sleep apnea Hiatal hernia 01/25/2018 DX:Hiatal hernia ; COMMENT: 04/04/2018: Large paraesophageal hernia at EGD. Family History Medical History Relation Name Comments Prostate cancer Father Arthritis Mother back problems Other: multiple sclerosis Sister 1 DE CEASED Hypertension Sister 2 high cholesteri ol and heart issues Breast cancer Neg Hx Relation Name Status Comments Daughter Addiction. over dose Father (Age 75) prostate c ancer Maternal Grandfather CVA Maternal Grandmother (Age 91) Ol d age Mother (Age 95) Healthy - TKR, thr and spine surgery Paternal Grandfather PROSTAT E CA Paternal Grandmother Old age Sister 1 (Age 62) Sister 2 Sister 3 (Age 62) Multiple s clerosis Sister 4 Alive Healthy Son Alive Asthma and eddy tion Social History Tobacco Use Types Packs/Day Years Used Date Smoking Tobacco: Former Cigarettes S tarted: 2014 Smokeless Tobacco: Never Alcohol Use Standard Drinks/Week Comments No 0 (1 standard drink = 0.6 oz pur e alcohol) Sex and Gender Information Value Date Recorded Sex Assigned at Not on file Gender Identity Not on file Sexual Orientation Not on file Obstetrics History Last Filed Vital Signs Vital Sign Reading Time Taken Comments Blood Pressure 145/89 03/15/2024 2:54 PM EDT Pulse 85 03/15/2024 2:54 PM EDT Temperature - - Respiratory Rate - - Oxygen Saturation - - Inhaled Oxygen Concentration - - Weight 78.6 kg (173 lb 3.2 oz) 03/15/2024 2:54 P M EDT Height - - Body Mass Index - - Plan of Treatment Upcoming Encounters Date Type Department Care Team (Late st Contact Info) Description 11/27/2024 11:20 AM EST Appointment Radiology Department - [address] [phone] 03/21/2025 1:15 PM EDT Office Visit Nephrology - [address] [phone] Te Davis MD [address] [facility] [address] [place] [address] Health Maintenance Due Date Last Done Comments Zoster Vaccines (1 of 2) 12/24/2003 Pneumococcal Vaccine: 65+ Years (1 of 1 - PCV) 2018 DTaP,Tdap,and Td Vaccines (2 - Td or Tdap) 09/06/2022 09/06/2012 Cholesterol Screening (Lipid Panel) 10/03/2022 Colorectal Cancer Screening: Colonoscopy 10/03/2022 Depression Screening 10/03/2022 Falls Risk Assessment 10/03/2022 Hepatitis C Screening 10/03/2022 Social Influencers of Health Screening 10/03/2022 Hypertension/CHF/CAD Annual BMP Blood Test 10/09/2022 COVID-19 Vaccine ( - season) 2024 Influenza Vaccine (#1) 2024 Breast Cancer Screening 11/18/2025 11/18/19 24, 11/11/2022, 11/06/2021, Additional history exists RSV Immunization Patients 60+ Years Old (1 - 1-dose 75+ series) 2028 Osteoporosis Screening (Bone Density Screening) 11/21/2030 11/21/2020 HIB Vaccines Aged Out No longer eligi ble based on patient's age to complete this topic HPV Vaccines Aged Out No longer eligi ble based on patient's age to complete this topic Hepatitis A Vaccines Aged Out No long er eligible based on patient's age to complete this topic Hepatitis B Vaccines Aged Out No long er eligible based on patient's age to complete this topic IPV Vaccines Aged Out No longer eligi ble based on patient's age to complete this topic MMR Vaccines Aged Out No longer eligi ble based on patient's age to complete this topic Meningococcal ACWY Vaccine Aged Out N o longer eligible based on patient's age to complete this topic RSV Immunization Patients Under 20 months Aged Out No longer eligible based on patient's age to complete this topic Varicella Vaccines Aged Out No longer eligible based on patient's age to complete this topic Procedures Procedure Name Priority Date/Time Associated Diagnosis Comments SCREENING MAMMOGRAPHY BI 2-VIEW BREAST INC CAD Routine 11/18/2023 10:29 AM EST Encounter for screening mammogram for malignant neoplasm of breast DXA BONE DENSITY STUDY 1+ SITS AXIAL SKEL Routine 11/21/2020 10:04 AM EST Encounter for screening for osteoporosis from Last 3 Months or Most Recently Relevant to Health Maintenance Results * SCREENING MAMMOGRAPHY BI 2-VIEW BREAST INC CAD (11/18/2023 10:29 AM EST) Anatomical Region Laterality Modality Radiographic Ethel ging 11/11/2022 10:3 3 AM EST Narrative 11/18/2023 1:50 PM EST This is a summary report. The complete report is available in the patient's medical record. If you cannot access the medical record, please contact the sending organization for a detailed fax or copy. Full field digital screening tomosynthesis mammography, reviewed with CAD and compared to previous. The breasts are composed of fatty and fibroglandular tissue. ??No suspicious mass, architectural distortion or suspicious calcifications are identified. IMPRESSION: : No mammographic evidence of malignancy. BIRADS 1-Negative; N. 5 year breast cancer risk assessment 1.9 % Lifetime breast cancer risk assessment 5.9 % Breast cancer risk category Low (<15%) Procedure Note Jacky Chaney MD - 06/12/2024 This is a summary report. The complete report is available in thepatient's medical record. If you cannot access the medical record, pleasecontact the sending organization for a detailed fax or copy. Full field digital screening tomosynthesis mammography, reviewed with CADand compared to previous. The breasts are composed of fatty andfibroglandular tissue. No suspicious mass, architectural distortion orsuspicious calcifications are identified. IMPRESSION: : No mammographic evidence of malignancy. BIRADS 1-Negative; N. 5 year breast cancer risk assessment 1.9 % Lifetime breast cancer risk assessment 5.9 % Breast cancer risk category Low (<15%) Rosalva Stevens MD IMG XR PROCEDURES * DXA BONE DENSITY STUDY 1+ SITS AXIAL SKEL (11/21/2020 10:04 AM EST) Anatomical Region Laterality Modality Bone Densitometr y 10/28/2020 10:3 1 AM EST Narrative 11/21/2020 2:52 PM EST BONE DENSITY ? Lumbar Spine T-score is +0.8 ?? (SD relative to 20-29 y/o adult) Z-score is +2.7 ??(SD relative to age matched peers) This is normal by criteria defined by the WHO. Left Hip T-score is -0.8 Z-score is +0.8 This is normal by criteria defined by the WHO. Comparison exam(s): significant decrease in bone density of ??hip when compared to most recent bone density examination ?? Confidence level is +/-95%. Impression: Based on the World Health Organization criteria, Zoë Parks should be classified as having normal bone density. The [facility] Department of Internal Medicine recommends using National Osteoporosis Foundation (NOF) guidelines in treatment decisions related to osteoporosis. NOF guidelines suggest considering treatment for postmenopausal women and men aged 50 or older presenting with the following: History of hip or vertebral fracture. T-score less than or equal to -2.5 (DXA) at the femoral neck, total hip, or spine, after appropriate evaluation to exclude secondary causes. Low bone mass (T-score between -1.0 and -2.5 at the femoral neck or spine) AND a 10-year probability of a hip fracture greater than or equal to 3% OR a 10-year probability of a major osteoporosis-related fracture greater than or equal to 20% based on the [place]-adapted WHO algorithm Please note that all treatment decisions require clinical judgment and consideration of individual patient factors, including patient preferences, co-morbidities, previous drug use, risk factors not captured in the FRAX model (e.g., frailty, falls, vitamin D deficiency, increased bone turnover, interval significant decline in bone density) and possible under- or over-estimation of fracture risk by FRAX. Procedure Note aSbi Sampson MD - 10/13/2022 BONE DENSITY Lumbar Spine T-score is +0.8 (SD relative to 20-29 y/o adult) Z-score is +2.7 (SD relative to age matched peers) This is normal by criteria defined by the WHO. Left Hip T-score is -0.8 Z-score is +0.8 This is normal by criteria defined by the WHO. Comparison exam(s): significant decrease in bone density of hip whencompared to most recent bone density examination Confidence level is +/-95%. Impression: Based on the World Health Organization criteria, Zoë Parks should beclassified as having normal bone density. The [facility] Department of Internal Medicine recommendsusing National Osteoporosis Foundation (NOF) guidelines in treatmentdecisions related to osteoporosis. NOF guidelines suggest consideringtreatment for postmenopausal women and men aged 50 or older presentingwith the following: History of hip or vertebral fracture. T-score less than or equal to -2.5 (DXA) at the femoral neck, total hip,or spine, after appropriate evaluation to exclude secondary causes. Low bone mass (T-score between -1.0 and -2.5 at the femoral neck or spine)AND a 10-year probability of a hip fracture greater than or equal to 3% ORa 10-year probability of a major osteoporosis-related fracture greaterthan or equal to 20% based on the [place]-adapted WHO algorithm Please note that all treatment decisions require clinical judgment andconsideration of individual patient factors, including patientpreferences, co-morbidities, previous drug use, risk factors not capturedin the FRAX model (e.g., frailty, falls, vitamin D deficiency, increasedbone turnover, interval significant decline in bone density) and possibleunder- or over-estimation of fracture risk by FRAX. Giovanna NGUYEN IMG DXA PROCEDURES from Last 3 Months or Most Recently Relevant to Health Maintenance Care Teams Knit Goods Cutter Hand Relationship Specialty Start Date End Date Rosalva Stevens MD PCP - General 07/09/15
== END 2024-11-24 12:14 | disposition home or self-care (01) ==
PROVIDERS: PCP Internal Medicine; Visit Provider Internal Medicine Gastroenterology
DX: R19.7 Diarrhea, unspecified (principal); R79.89 Other specified abnormal findings of blood chemistry
CPT/HCPCS: 99204

== ENCOUNTER 2024-11-28 10:49 | Outpatient (AMB) | payer MEDICARE, SELFPAY ==
--- NOTE | 2024-11-28 11:05 | A.OFFVIS_ITS ---
Vital Signs 11/28/24 11:11 Height 5 ft 1 in Weight 173 lb BMI 32.7 Intake Visit Reasons: OV- Mallet finger of right MF-w/out xray Intake Note: Rosemary 68 yr old female presents today for her follow up visit for her Mallet deformity of right middle finger. States she has continuued to wear her finger splint. Denies pain and is hoping to not have to wear her finger splint. Allergies No Known Allergies Allergy (Verified 11/28/24 11:13) HPI HPI OV- Mallet finger of right MF-w/out xray: Details: Rosemary is a 68 year old right hand dominant woman who returns for her right middle finger mallet deformity. She says she has been wearing her splint as instructed. She says she is somewhat tired of wearing her splint all the time and is hoping she can stop soon. [facility] Medical History (Updated 11/24/24 @ 12:15 by Kristal Castellanos MD) Shingles Acid reflux Hx of mammogram Severe obesity Seasonal allergies Post herpetic neuralgia Obstructive sleep apnea Anxiety Depression Surgical History Hx of colonoscopy History of right hip replacement Hx of endoscopy Family History Mother Cardiac arrest Father Cancer of prostate Sister Multiple sclerosis Arthritis Social History Housing: House Alcohol intake: never Patient Tobacco Use Status: Current everyday Tobacco user Cigarette Packs Per Day: 0.25 Cigarettes Per Day: 5 Years Smoked: 15 e-Cigarette/Vaping Use: Never Used service: No 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al status: retired 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 Cognitive needs: No Hearing needs: No Vision needs: No Review of Systems Const All systems reviewed & are unremarkable except as noted in HPI and below Physical Exam Vital Signs: BMI result Body Mass Index 32.7 Const General: no acute distress and alert Orientation/consciousness: patient oriented x3 Neuro General: patient oriented x3 Extrem Other: Evaluation of Upper Extremity: The patient is alert, oriented, and in no acute distress Neuro: Median, Ulnar, Radial nerves motor and sensory intact Vascular: Cap refill brisk ROM: She can bring all of her fingers close to a tight fist. Middle finger mallet finger DIPjoint has improved to ~10 degrees. Good range of motion at the PIP joint She appears to have relatively normal range of motion in the index and ring fingers today Psych Appearance: grossly normal Affect: normal affect Attitude: cooperative Assessment & Plan Assessment & Plan (1) Mallet deformity of right middle finger: Code(s): M20.011 - Mallet finger of right finger(s) Category: Medical Plan Assessment and plan: 1. Right middle finger mallet finger Began in ~03/2024. 2. Right middle finger PIP joint stiffness, and generalized stiffness/discomfort of the index and ring fingers per patient The patient says she has already tried OT and did not feel that this splint that they gave her to wear for a few hours a day was doing much good. I educated her about these conditions We discussed operative and non operative treatment options. She says she has been wearing her Stax splint 24/7 since her last appointment She will continue to wear her Stax splint 24/7 for the next few weeks, before transitioning to wearing it 8 hours daily for the next 6 weeks. She can wear this at night while sleeping She understands if it does not work we could pin the DIP joint in extension for 6 weeks. She will follow up in 10-12 weeks to see how she is doing.. She may cancel this if she is doing well. Scribed for Keke Villalta MD by Rambo Santos, nurses medical assistants phlebotomists, on 11/28/24 at 11:15 AM, EST. Coding Level of Care Code Est Pt Level 3 (56199) Diagnoses Mallet deformity of right middle finger M20.011
[2024-11-28 11:11] VITALS: BMI 32.7
--- OUTSIDE RECORDS SUMMARY | 2024-11-28 11:43 | XMS_ITS | Clinical Summary ---
Author Organization [address] Address [address] [place] [address] Phone Care Team Providers Care Loin Trimmer Name Role Phone Rosalva Stevens MD Primary Care Provider [phone] Encounters Date Type Department Care Team Description 11/27/2024 10:55 AM EST - 11/27/2024 11:59 PM EST Hospital Encounter Radiology Department - [address] [phone] Encounter for screening mammogram for breast cancer Discharge Disposition: Home or Self Care from Last 3 Months Surgical History Surgery Date Site/Laterality Comments NECK SURGERY age 1 PROCEDURE: HISTORICAL NECK SURGERY; COMMENT: Brachial cleft cyst removal HAND SURGERY PROCEDURE: HISTORICAL HAND SURGERY; COMMENT: Trigger finger OTHER SURGICAL HISTORY PROCEDURE: PA DILATION & CURETTAGE DX&/THER NONOBSTETRIC COLONOSCOPY 04/17/2015 PROCEDURE: HISTORICAL COLONOSCOPY; COMMENT: tics and hyperplastic polyp; repeat in 10 yrs under propofol UPPER GASTROINTESTINAL ENDOSCOPY 04/04/2018 PROCEDURE: PA UPPER GI ENDOSCOPY PERFORMED; COMMENT: Large paraesophageal [...] on file Sexual Orientation Not on file Job Start Date Occupation Industry Not on file Not on file Not on file Obstetrics History Para Term AB IAB SAB Ectopic Multiple Livin g Live Births 2 2 2 2 Date Outcome GA Total Labor Labor/2nd/3rd Weight Sex Type Anes PTL Payton A1 A5 Name Clin Term Term Last Filed Vital Signs Vital Sign Reading [...] Care Team (Late st Contact Info) Description 03/21/2025 1:15 PM EDT Office Visit Nephrology [address] [phone] Te Davis MD [facility] [place] [phone] Health Maintenance Due Date Last Done Comments Zoster Vaccines (1 of 2) 12/24/2003 Pneumococcal Vaccine: 65+ Years (1 of 1 - PCV) 2018 DTaP,Tdap,and Td Vaccines (3 - Td or Tdap) 09/06/2022 09/06/2012, 06/18/2003 Cholesterol Screening (Lipid Panel) 10/03/2022 Colorectal Cancer Screening: Colonoscopy 10/03/2022 Depression Screening 10/03/2022 Falls Risk Assessment 10/03/2022 Hepatitis C Screening 10/03/2022 Medicare Annual Wellness Visit 10/03/2022 Social Influencers of Health Screening 10/03/2022 Hypertension/CHF/CAD Annual BMP Blood Test 10/09/2022 COVID-19 Vaccine ( season) 2024 08/15/2021, 01/24/2021, 01/01/2021 Influenza Vaccine (#1) 2024 Breast Cancer Screening 11/27/2026 11/27/19, 11/18/2023, 11/11/2022, Additional history exists RSV Immunization Patients 60+ [...] Procedure Name Priority Date/Time Associated Diagnosis Comments MG MAMMO DIGITAL SCREENING W ALEJANDRO BILAT Routine 11/27/2024 11:16 AM EST Encounter for screening mammogram for breast cancer DXA BONE DENSITY STUDY 1+ SITS AXIAL SKEL Routine 11/21/2020 10:04 AM EST Encounter for screening for osteoporosis from Last 3 Months or Most Recently Relevant to Health Maintenance Results * MG Mammo Digital Screening w Alejandro bilat (11/27/2024 11:16 AM EST) Anatomical Region Laterality Modality Breast Bilateral Mammography 11/27/2024 11:5 8 AM EST Impressions 11/27/2024 12:00 PM EST No mammographic evidence for malignancy. BI-RADS CATEGORY: 1 - NEGATIVE RECOMMENDATION: Screening bilateral mammogram is recommended in 1 year. Mammo Location: [facility], [address] [place] [address], [address], . -------- FINAL REPORT -------- Dictated By: Sabi Sampson Dictated Date: 11/27/2024 11:58 ET Assigned Physician: Sabi Sampson Reviewed and Electronically Signed By: Sabi Sampson Signed Date: 11/27/2024 12:00 ET Workstation ID: [id number] Transcribed By: Self Edit Transcribed Date: 11/27/2024 11:58 ET Narrative 11/27/2024 12:00 PM EST Bilateral screening mammogram. CLINICAL: 68 years old, Female, routine annual exam. COMPARISON: Prior mammograms, latest from 11/18/2023. ?? TECHNIQUE: Bilateral MLO and CC views were obtained digitally with 2-D C views and 3-D mammogram (digital breast tomosynthesis). Computer-aided detection was utilized in evaluation of this exam (CAD). FINDINGS: There is no evidence of suspicious mass or architectural distortion. ??No worrisome calcifications are evident. ??There has been no significant change from prior exam(s). ?? BREAST DENSITY: B - There are scattered areas of fibroglandular density. Procedure Note Sabi Sampson MD - 11/27/2024 Bilateral screening mammogram. CLINICAL: 68 years old, Female, routine annual exam. COMPARISON: Prior mammograms, latest from 11/18/2023. TECHNIQUE: Bilateral MLO and CC views were obtained digitally with 2-D Cviews and 3-D mammogram (digital breast tomosynthesis). Computer-aideddetection was utilized in evaluation of this exam (CAD). FINDINGS: There is no evidence of suspicious mass or architectural distortion. Noworrisome calcifications are evident. There has been no significantchange from prior exam(s). BREAST DENSITY: B - There are scattered areas of fibroglandular density. IMPRESSION: No mammographic evidence for malignancy. BI-RADS CATEGORY: 1 - NEGATIVE RECOMMENDATION: Screening bilateral mammogram is recommended in 1 year. Mammo Location: [facility], [address] [place] [address], [address], . -------- FINAL REPORT -------- Dictated By: Sabi Sampson Dictated Date: 11/27/2024 11:58 ET Assigned Physician: Sabi Sampson Reviewed and Electronically Signed By: Sabi Sampson Signed Date: 11/27/2024 12:00 ET Workstation ID: [id number] Transcribed By: Self Edit Transcribed Date: 11/27/2024 11:58 ET Rosalva Stevens MD IMG BI PROCEDURES * DXA BONE DENSITY STUDY 1+ [...] classified as having normal bone density. The [facility] Department of Internal Medicine recommends using [...] beclassified as having normal bone density. The [facility] Department of Internal Medicine recommendsusing National [...] Recently Relevant to Health Maintenance Care Teams Loin Trimmer Relationship Specialty Start Date End Date Rosalva Stevens MD [address] [place] [address] [address] [place] [address] PCP - General 07/09/15
--- OUTSIDE RECORDS SUMMARY | 2024-11-28 11:43 | XMS_ITS | Encounter Summary ---
Author Organization [facility] Address [address] [place] [address] Care Team Providers Care Supervisor Blasting Name Role Phone Rosalva Stevens MD Primary Care Provider Reason for Visit * Imaging (Routine) - Authorized Specialty Diagnoses / Procedures Referred By Contac t Referred To Contact Radiology Diagnoses Encounter for screening mammogram for breast cancer Procedures MG Mammo Digital Screening w Alejandro bilat MG Mammo Digital Screening w Alejandro bilRosalva Oliver MD [address] [place] [address] [address] [place] [address] [facility] Referral ID Status Reason Start Date Expiration Date V isits Requested Visits Authorized [id number] Authorized 08/10/2024 08/10/2025 1 1 Encounter Details Date Type Department Care Team (Latest Contact Info) Description 11/27/2024 10:55 AM EST - 11/27/2024 11:59 PM [facility] Encounter Radiology Department [address] [phone] Encounter for screening mammogram for breast cancer Discharge Disposition: Home or Self Care Social History Tobacco Use Types Packs/Day Years [...] file Not on file Not on file documented as of this encounter Discharge Disposition Disposition Code Departure Means Destination Home or Self Care documented in this encounter Plan of Treatment Upcoming Encounters Date Type Department Care Team (Late st Contact Info) Description 03/21/2025 1:15 PM EDT Office Visit Nephrology [address] [phone] Te Davis MD [address] [place] [address] [place] [phone] documented as of this encounter Procedures Procedure Name Priority Date/Time Associated Diagnosis Comments MG MAMMO DIGITAL SCREENING W ALEJANDRO BILAT Routine 11/27/2024 11:16 AM EST Encounter for screening mammogram for breast cancer documented in this encounter Results * MG Mammo Digital Screening w Alejandro bilat (11/27/2024 11:16 AM EST) Anatomical Region Laterality Modality Breast Bilateral Mammography 11/27/2024 11:5 8 AM EST Impressions 11/27/2024 12:00 PM EST No mammographic evidence for malignancy. BI-RADS CATEGORY: 1 - NEGATIVE RECOMMENDATION: Screening bilateral mammogram is recommended in 1 year. Mammo Location: [facility], [address] [place] [address], [address], . -------- FINAL REPORT -------- Dictated By: Sabi Sampson Dictated Date: 11/27/2024 11:58 ET Assigned Physician: Sabi Sampson Reviewed and Electronically Signed By: Sabi Sampson Signed Date: 11/27/2024 12:00 ET Workstation ID: [id number] Transcribed By: Self Edit Transcribed Date: 11/27/2024 [...] is recommended in 1 year. Mammo Location: [facility], [address] [place] [address], [address], . -------- FINAL REPORT -------- Dictated By: Sabi Sampson Dictated Date: 11/27/2024 11:58 ET Assigned Physician: Sabi Sampson Reviewed and Electronically Signed By: Sabi Sampson Signed Date: 11/27/2024 12:00 ET Workstation ID: [id number] Transcribed By: Self Edit Transcribed Date: 11/27/2024 11:58 ET Rosalva Stevens MD IMG BI PROCEDURES documented in this encounter Visit Diagnoses Diagnosis Encounter for screening mammogram for breast cancer documented in this encounter Care Teams Supervisor Blasting Relationship Specialty Start Date End Date Rosalva Stevens MD [address] [place] [address] PCP - General 9/15/15 documented as of this encounter
== END 2024-11-28 11:47 | disposition home or self-care (01) ==
PROVIDERS: PCP Internal Medicine; Visit Provider Orthopaedic Surgery
DX: M20.011 Mallet finger of right finger(s) (principal)
CPT/HCPCS: 99213

== ENCOUNTER → 2024-11-28 10:49 | Outpatient (BNVA) | payer MEDICARE, SELFPAY | PROVIDERS: PCP Internal Medicine; Visit Provider Orthopaedic Surgery | DX: M20.011 Mallet finger of right finger(s) (principal) | CPT/HCPCS: 99212 ==

== ENCOUNTER 2024-12-07 13:37 | Outpatient (AMB) | payer MEDICARE, SELFPAY ==
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
--- OUTSIDE RECORDS SUMMARY | 2024-12-07 13:46 | XMS_ITS | Encounter Summary ---
Author Organization [facility] Address [address] [place] [address] Care Team Providers Care Lay Out Inspector Name Role Phone Rosalva Stevens MD Primary Care Provider [phone] Reason for Visit * Imaging (Routine) - Closed Specialty Diagnoses / Procedures Referred By Contac t Referred To Contact Radiology Diagnoses Encounter for screening mammogram for breast cancer Procedures MG Mammo Digital Screening w Alejandro bilat MG Mammo Digital Screening w Alejandro bilRosalva Oliver MD [address] [place] [address] [address] [place] [address] Phone: tel: fax: [facility] Referral ID Status Reason Start Date Expiration Date Visits Re quested Visits Authorized [id number] Closed 08/10/2024 08/10/2025 1 1 Encounter Details Date Type Department Care Team (Latest Contact Info) Description 11/27/2024 10:55 AM EST - 11/27/2024 11:59 PM EST Hospital Encounter Radiology Department [address] [phone] Encounter for screening mammogram for breast cancer Discharge Disposition: Home or Self Care Social History Tobacco Use Types Packs/Day Years Used Date Smoking Tobacco: Former Cigarettes S tarted: 2014 Smokeless Tobacco: Never Alcohol Use Standard Drinks/Week Comments No 0 (1 standard drink = 0.6 oz pur e alcohol) Comments No Sex and Gender Information Value Date Recorded Sex Assigned at Not on file Legal Sex Female 4:33 PM EST Gender Identity Not on file Sexual Orientation Not on file documented as of this encounter Discharge Disposition Disposition Code Departure Means Destination Home or Self Care documented in this encounter Plan of Treatment Upcoming Encounters Date Type Department Care Team (Late st Contact Info) Description 03/21/2025 1:15 PM EDT Office Visit Nephrology - [address] [phone] Te Davis MD [address] [place] [address] documented as of this encounter Procedures Procedure [...] is recommended in 1 year. Mammo Location: [facility], [address] [place] [address], [address], . -------- FINAL REPORT -------- Dictated By: Sabi Sampson Dictated Date: 11/27/2024 11:58 ET Assigned Physician: Sabi Sampson Reviewed and Electronically Signed By: Sabi Sampson Signed Date: 11/27/2024 12:00 ET Workstation ID: [id number] Transcribed By: Self Edit Transcribed Date: 11/27/2024 [...] is recommended in 1 year. Mammo Location: [facility], [address] [place] [address], [address], . -------- FINAL REPORT -------- Dictated By: Sabi Sampson Dictated Date: 11/27/2024 11:58 ET Assigned Physician: Sabi Sampson Reviewed and Electronically Signed By: Sabi Sampson Signed Date: 11/27/2024 12:00 ET Workstation ID: [id number] Transcribed By: Self Edit Transcribed Date: 11/27/2024 11:58 ET us Rosalva Stevens MD IMG BI PROCEDURES Final Result documented in this encounter Visit Diagnoses Diagnosis Encounter for screening mammogram for breast cancer documented in this encounter Care Teams Lay Out Inspector Relationship Specialty Start Date End Date Rosalva Stevens MD [address] [place] [id number] PCP - General 07/09/15 documented as of this encounter
--- OUTSIDE RECORDS SUMMARY | 2024-12-07 13:46 | XMS_ITS | Clinical Summary ---
Author Organization [address] Address [address] [place] [address] Phone Care Team Providers Care Sole Inker Name Role Phone Rosalva Stevens MD Primary Care Provider [phone] Encounters Date Type Department Care Team Description 11/27/2024 10:55 AM EST - 11/27/2024 11:59 PM EST Hospital Encounter Radiology Department - [address] [phone] Encounter for screening mammogram for breast cancer Discharge Disposition: Home or Self Care from Last 3 Months Surgical History Surgery Date Site/Laterality Comments NECK SURGERY age 1 PROCEDURE: HISTORICAL NECK SURGERY; COMMENT: Brachial cleft cyst removal HAND SURGERY PROCEDURE: HISTORICAL HAND SURGERY; COMMENT: Trigger finger OTHER SURGICAL HISTORY PROCEDURE: OR DILATION & CURETTAGE DX&/THER NONOBSTETRIC COLONOSCOPY 04/17/2015 PROCEDURE: HISTORICAL COLONOSCOPY; COMMENT: tics and hyperplastic polyp; repeat in 10 yrs under propofol UPPER GASTROINTESTINAL ENDOSCOPY 04/04/2018 PROCEDURE: OR UPPER GI ENDOSCOPY PERFORMED; COMMENT: Large paraesophageal [...] Sexual Orientation Not on file Obstetrics History Para Term [...] 03/21/2025 1:15 PM EDT Office Visit Nephrology [address] [phone] Te Davis MD [address] [facility] [facility] [address] [place] [address] Health Maintenance Due Date Last Done Comments Zoster Vaccines (1 of 2) 12/24/2003 Pneumococcal Vaccine: 50+ Years (1 of 1 - PCV) 2018 [...] is recommended in 1 year. Mammo Location: [facility], [address] [place] [address], [address], . -------- FINAL REPORT -------- Dictated By: Sabi Sampson Dictated Date: 11/27/2024 11:58 ET Assigned Physician: Sabi Sampson Reviewed and Electronically Signed By: Sabi Sampson Signed Date: 11/27/2024 12:00 ET Workstation ID: [id number] Transcribed By: Self Edit Transcribed Date: 11/27/2024 [...] is recommended in 1 year. Mammo Location: [facility], [address] [place] [address], [address], . -------- FINAL REPORT -------- Dictated By: Sabi Sampson Dictated Date: 11/27/2024 11:58 ET Assigned Physician: Sabi Sampson Reviewed and Electronically Signed By: Sabi Sampson Signed Date: 11/27/2024 12:00 ET Workstation ID: [id number] Transcribed By: Self Edit Transcribed Date: 11/27/2024 11:58 ET us Rosalva Stevens MD IMG BI PROCEDURES Final Result * DXA BONE DENSITY STUDY 1+ SITS [...] classified as having normal bone density. The [facility] Department of Internal Medicine recommends using National [...] beclassified as having normal bone density. The [facility] Department of Internal Medicine recommendsusing National Osteoporosis [...] by FRAX. Giovanna NGUYEN IMG DXA PROCEDURES Final R esult from Last 3 Months or Most Recently Relevant to Health Maintenance Insurance MEDICARE [facility] Care Teams Sole Inker Relationship Specialty Start Date End Date Rosalva Stevens MD [address] [place] [phone] PCP - General 07/09/15
== END 2024-12-07 13:38 | disposition home or self-care (01) ==
LOC: HO.HOP 13:37
PROVIDERS: PCP Internal Medicine; Visit Provider Clinical Nurse Specialist Psychiatric/Mental Health
DX: F33.40 Major depressive disorder, recurrent, in remission, unspecified (principal); F41.1 Generalized anxiety disorder; F41.0 Panic disorder [episodic paroxysmal anxiety]
CPT/HCPCS: 99214

== ENCOUNTER → 2024-12-07 13:37 | Outpatient (BNVA) | payer MEDICARE, SELFPAY | PROVIDERS: PCP Internal Medicine; Visit Provider Clinical Nurse Specialist Psychiatric/Mental Health | DX: F33.40 Major depressive disorder, recurrent, in remission, unspecified (principal); F41.1 Generalized anxiety disorder; F41.0 Panic disorder [episodic paroxysmal anxiety] | CPT/HCPCS: 99212 ==

== ENCOUNTER 2025-01-04 09:45 | Outpatient (REF) | payer MEDICARE, SELFPAY ==
--- NOTE | ~2025-01-04 | US_ITS ---
EXAMINATION: US ABDOMEN LIMITED WITH LIVER ELASTOGRAPHY HISTORY: K75.81 - Nonalcoholic steatohepatitis (PADRON) TECHNIQUE: Real-time grayscale ultrasound imaging of the right upper quadrant was performed and images were reviewed. COMPARISON: There are no prior studies for comparison. FINDINGS: Liver: The right lobe of the liver measures 18.4 cm in size. The left lobe of the liver measures 11.5 cm in size. The liver demonstrates normal homogeneous echotexture. No focal mass or intrahepatic biliary ductal dilatation is identified. There is normal hepatopedal flow in the portal vein. Ultrasound elastography of the liver was performed with 10 separate measurements of the liver parenchyma with the patient in the supine position. Measurements were obtained approximately 2 cm below Viola's capsule and perpendicular to the capsule. Images are of satisfactory quality. The median shear wave velocity is 1.55 m/s. The interquartile range/median (IQR/median) is 0.20. Gallbladder and biliary tree: The gallbladder is unremarkable, without evidence of calculi, wall thickening, or pericholecystic fluid. There is no sonographic Diaz sign. The common bile duct is normal in caliber measuring 4 mm. Right Kidney: The right kidney measures 10.9 cm in length. The right kidney is unremarkable, without evidence of masses, hydronephrosis, or calculi. Pancreas: The pancreatic head, neck, and body are unremarkable. The pancreatic tail is obscured by bowel gas. Abdominal aorta and inferior vena cava: The visualized portions of the abdominal aorta and inferior vena cava are normal in caliber. There is no free fluid in the right upper quadrant. US/US abdomen daniel w elastography IMPRESSION: Hepatomegaly. Otherwise unremarkable right upper quadrant ultrasound. The median shear wave velocity in the liver is 1.55 m/s, corresponding to a median liver stiffness of 7.47 kPa. The IQR/median value is 0.20. This is indicative of a poor quality data set, and the estimated liver stiffness may be unreliable. Findings are indicative of a low elastography value which rules out advanced chronic liver disease in asymptomatic patients. REFERENCE: Society of Radiologists in Ultrasound Liver Stiffness Thresholds (2020): LIVER STIFFNESS THRESHOLDS: *Shear wave velocity less than 1.3 m/s (Liver Stiffness equal or less than 5 kPa): High probability of being normal. *Shear wave velocity less than 1.7 m/s (Liver Stiffness less than 9 kPa): In the absence of other known clinical signs, rules out compensated advanced chronic liver disease. *Shear wave velocity between 1.7-2.1 m/s (Liver Stiffness 9-13 kPa): Suggestive of compensated advanced chronic liver disease but need further test for confirmation. *Shear wave velocity between 2.1-2.4 m/s (Liver Stiffness 13-17 kPa): Rules in compensated advanced chronic liver disease. *Shear wave velocity greater than 2.4 m/s (Liver Stiffness over 17 kPa): Suggestive of clinically significant portal hypertension. QUALITY OF DATA SET: *IQR/Median value equal or less than 0.15 implies a quality data set. *IQR/Median value over 0.15 implies a poor quality data set. SIGNIFICANT CHANGE FROM PRIOR EXAM: Significant change if liver stiffness measurement is 10% or greater from prior exam. OTHER CONSIDERATIONS: The stage of liver fibrosis may be overestimated in the setting of acute hepatitis, liver inflammation, elevated liver function tests, hepatic vascular congestion, obstructive cholestasis, non-fasting state, and infiltrative diseases such as amyloidosis and lymphoma. In some patients with NAFLD, the liver stiffness thresholds for compensated advanced chronic liver disease may be lower. In causes other than viral hepatitis and NAFLD, liver stiffness thresholds are not well established. Electronically signed by: Roly Torres MD 01/04/2025 10:48 AM EDT
--- OUTSIDE RECORDS SUMMARY | 2025-01-04 11:48 | XMS_ITS | Clinical Summary ---
Author Organization [address] Address [address] [place] [address] Phone Care Team Providers Care Airplane Tester Name Role Phone Rosalva Stevens MD Primary Care Provider [phone] Encounters Date Type Department Care Team Description 11/27/2024 10:55 AM EST - 11/27/2024 11:59 PM EST Hospital Encounter Radiology Department - [address] [phone] Encounter for screening mammogram for breast cancer Discharge Disposition: Home or Self Care from Last 3 Months Surgical History Surgery Date Site/Laterality Comments NECK SURGERY age 1 PROCEDURE: HISTORICAL NECK SURGERY; COMMENT: Brachial cleft cyst removal HAND SURGERY PROCEDURE: HISTORICAL HAND SURGERY; COMMENT: Trigger finger OTHER SURGICAL HISTORY PROCEDURE: [place] DILATION & CURETTAGE DX&/THER NONOBSTETRIC COLONOSCOPY 04/17/2015 PROCEDURE: HISTORICAL COLONOSCOPY; COMMENT: tics and hyperplastic polyp; repeat in 10 yrs under propofol UPPER GASTROINTESTINAL ENDOSCOPY 04/04/2018 PROCEDURE: [place] UPPER GI ENDOSCOPY PERFORMED; COMMENT: Large paraesophageal [...] 03/21/2025 1:15 PM EDT Office Visit Nephrology [address] [phone] Te Davis MD [address] [facility] [address] [place] [address] Health Maintenance Due Date Last [...] is recommended in 1 year. Mammo Location: [facility], [address] [place] [address], [address], . -------- FINAL REPORT -------- Dictated By: Sabi Sampson Dictated Date: 11/27/2024 11:58 ET Assigned Physician: Sabi Sampson Reviewed and Electronically Signed By: Sabi Sampson Signed Date: 11/27/2024 12:00 ET Workstation ID: [id number] Transcribed By: Self Edit Transcribed Date: 11/27/2024 [...] is recommended in 1 year. Mammo Location: [facility], [address] [place] [address], [address], . -------- FINAL REPORT -------- Dictated By: Sabi Sampson Dictated Date: 11/27/2024 11:58 ET Assigned Physician: Sabi Sampson Reviewed and Electronically Signed By: Sabi Sampson Signed Date: 11/27/2024 12:00 ET Workstation ID: [id number] Transcribed By: Self Edit Transcribed Date: 11/27/2024 [...] classified as having normal bone density. The [facility] Department of Internal Medicine recommends using National [...] beclassified as having normal bone density. The [facility] Department of Internal Medicine recommendsusing National Osteoporosis [...] Recently Relevant to Health Maintenance Insurance MEDICARE [facility] Member Subscriber Plan / Payer (Ef fective 2018-Present) Name:Zoë Parks Relation to Subscriber:Self Name:Zoë Parks Payer ID:[id number] Type:Not on file Address: [address] [place] [id number] Care Teams Airplane Tester Relationship Specialty Start Date End Date Rosalva Stevens MD [address] [place] [address] [address] [place] [address] PCP - General 07/09/15
== END 2025-01-04 09:46 | disposition home or self-care (01) ==
LOC: HO.US 09:45
PROVIDERS: PCP Internal Medicine; Visit Provider Internal Medicine Gastroenterology
DX: K75.81 Nonalcoholic steatohepatitis (NASH) (principal); K74.60 Unspecified cirrhosis of liver
CPT/HCPCS: 76705; 76981

== ENCOUNTER → 2025-01-04 09:47 | Outpatient (BNV) | payer MEDICARE, SELFPAY | PROVIDERS: PCP Internal Medicine; Visit Provider Radiology Diagnostic Radiology | DX: K75.81 Nonalcoholic steatohepatitis (NASH) (principal) | CPT/HCPCS: 76705; 76981 ==

== ENCOUNTER 2025-01-22 15:38 | Outpatient (AMB) | payer MEDICARE, SELFPAY ==
--- NOTE | 2025-01-22 15:56 | A.OFFVIS_ITS ---
Intake Vital Signs 01/22/25 16:08 Height 5 ft 1 in Weight 176 lb BMI 33.3 BP 130/76 Blood Pressure Location Rt brachial Position Sitting Respiration 16 Pulse 85 Pulse Source Pulse Oximeter Pulse Oximetry (%) 100 Oxygen Delivery Method Room Air Intake Visit Reasons: wellness exam Intake Note: Medical wellness visit Director Market Intelligence Required: No Allergies No Known Allergies Allergy (Verified 11/28/24 11:13) HPI HPI Comments History of Present Illness Details The patient is a 69 y/o female with pmh post herpetic neuralgia, htn, ckd, anxiety/depression, prediabetes, yaniv on cpap presenting for [facility] GI: Following with GI-follows with Dr Culp. Starting about Aug 25 has had loose frequent stools bouts of watery explosive bowel movements. lower abdomen sensitive, gurgly. Worse with any alcohol-even if small amount. She started the BRAT diet, probiotics and Imodium. The stool has become slightly more formed in the past week. No fevers. No blood in the stool. Chronic pain. Post herpetic neuralgia. January 2023 V1. 2 years and 4 months since shingles. On duloxetine. Chronic OA-hips, knees, back Went to the hand surgeon- started PT on the right shoulder. 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 Seeing Dr Castano. Got three cortisone injections in the back. Numbness pain intermittently down to the right shoulder in the right pinky. 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 Right ganglion cyst right knee-stable Anxiety/depression: Continues with therapist Dr Rodríguez but things . Two children -drug issues. CV: on hctz. BP controlled. Sees Dr annually. Contributed to NSAID use. Goes annually Colonoscopy with polypectomy 2014. Double endoscopy scheduled for February 19. Sleep study this upcoming Wednesday She sees optometry-Dr Hernández 3/3 words HRA reviewed Moderate pain Indepedent ADLS Mammo-UTD ROS CONSTITUTIONAL: Denies weight loss, fever and chills. HEENT: Denies changes in vision and hearing. RESPIRATORY: Denies SOB and cough. CV: Denies palpitations and CP GI: Denies abdominal pain, nausea, vomiting and diarrhea. : Denies dysuria and urinary frequency. MSK:Finger pain SKIN: Denies rash and pruritus. NEUROLOGICAL: Denies headache PSYCHIATRIC: Denies recent changes in mood. PHYSICAL EXAM: GENERAL: Alert and oriented x 3. NAD EYES: EOMI. Anicteric. HENT: Moist mucous membranes. No scleral icterus. No cervical lymphadenopathy. LUNGS: Clear to auscultation bilaterally. CARDIOVASCULAR: Regular rate and rhythm. No murmur. No JVD. ABDOMEN: Soft, non-tender +bs EXTREMITIES: No edema. Non-tender. SKIN: No rashes or lesions. Warm. NEUROLOGIC: No focal neurological deficits. CN II-XII grossly intact PSYCHIATRIC: Cooperative. Appropriate mood and affect [facility] Medical History Major depressive disorder, recurrent, moderate Shingles Acid reflux Hx of mammogram Severe obesity Seasonal allergies Post herpetic neuralgia Obstructive sleep apnea Anxiety Depression Surgical History Hx of colonoscopy History of right hip replacement Hx of endoscopy Family History Mother Cardiac arrest Father Cancer of prostate Sister Multiple sclerosis Arthritis Social History Housing: House Alcohol intake: never Patient Tobacco Use Status: Current everyday Tobacco user Cigarette Packs Per Day: 0.25 Cigarettes Per Day: 5 Years Smoked: 15 e-Cigarette/Vaping Use: Never Used service: No 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al status: retired 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 (1st repeat determines score. Make sure they can repeat all three): object 1 (ball), object 2 (flag) and object 3 (tree) Attention & Calculation (CHOOSE ONE) Ask pt to begin with 100 & count backward by 7. Stop after 5 repeats. If pt cannot ask them to spell the word WORLD backward.: 93 (93), 86 (86), 79 (79), 72 (72) and 65 (65) Recall Ask patient to repeat the 3 items from question #3.: object 1 (ball), object 2 (flag) and object 3 (tree) Language Show patient a wristwatch & ask what it is. Repeat for pencil.: watch and pencil Ask the patient to repeat the phrase 'No ifs, ands, or buts' after you.: correct Ask the patient to 'take a piece of paper with their right hand' 'fold paper in half' 'place paper on floor': take paper in right hand, fold paper in half and place paper on floor Print the sentence 'CLOSE YOUR EYES' on a piece. If patient actually closes eyes then score.: followed written direction Give patient a blank piece of paper & ask to write a sentence. Score if it contains a noun & verb.: sentence contains subject and verb (The cat is in the hat) Ask patient to copy figure of intersecting pentagons exactly. Score if all 10 angles & 2 intersects are included.: all 10 angles present & 2 are intersected Score Score: 30 Physical Exam Vital Signs: Last Vital Signs Pulse 85 01/22/25 16:08 Resp 16 01/22/25 16:08 BP 130/76 01/22/25 16:08 Pulse Ox 100 01/22/25 16:08 Oxygen Delivery Method Room Air 01/22/25 16:08 BMI result Body Mass Index 33.3 Assessment & Plan Assessment & Plan (1) Medicare annual wellness visit, subsequent: Code(s): Z00.00 - Encounter for general adult medical examination without abnormal findings (2) Major depressive disorder, recurrent, in remission: Code(s): F33.40 - Major depressive disorder, recurrent, in remission, unspecified (3) Obstructive sleep apnea: Code(s): G47.33 - Obstructive sleep apnea (adult) (pediatric) Plan MWV HRA reviewed and signed Care team reviewed-see HPI Depression-stable. Grief Chronic post herpetic neuropathy Orders: Orders MR shoulder RT wo con 01/22/25 M19.011 - Primary osteoarthritis, right shoulder, M25.511 - Pain in right shoulder, M25.819 - Other specified joint disorders, unspecified shoulder Medications: New hydrochlorothiazide 25 mg PO DAILY 90 tabs 3RF Refilled duloxetine 60 mg PO DAILY 90 caps 3RF 90 days lisinopril 20 mg PO DAILY 90 tabs 3RF Coding Level of Care Code Medicare Subsequent (G0439) Diagnoses Medicare annual wellness visit, subsequent Z00.00 Major depressive disorder, recurrent, in remission F33.40 Obstructive sleep apnea G47.33
[2025-01-22 16:08] VITALS: BP 130/76; PULSE 85; RESP 16; O2SAT 100; BMI 33.3
--- OUTSIDE RECORDS SUMMARY | 2025-01-22 17:36 | XMS_ITS | Clinical Summary ---
Author Organization [address] Address [address] [place] [address] Phone Care Team Providers Care Carrier Loader Name Role Phone Rosalva Stevens MD Primary Care Provider [phone] Encounters Date Type Department Care Team Description 11/27/2024 10:55 AM EST - 11/27/2024 11:59 PM EST Hospital Encounter Radiology Department - [address] [phone] Encounter for screening mammogram for breast cancer Discharge Disposition: Home or Self Care from Last 3 Months Surgical History Surgery Date Site/Laterality Comments NECK SURGERY age 1 PROCEDURE: HISTORICAL NECK SURGERY; COMMENT: Brachial cleft cyst removal HAND SURGERY PROCEDURE: HISTORICAL HAND SURGERY; COMMENT: Trigger finger OTHER SURGICAL HISTORY PROCEDURE: [place] DILATION & CURETTAGE DX&/[place] NONOBSTETRIC COLONOSCOPY 04/17/2015 PROCEDURE: HISTORICAL COLONOSCOPY; COMMENT: tics and hyperplastic polyp; repeat in 10 yrs under propofol UPPER GASTROINTESTINAL ENDOSCOPY 04/04/2018 PROCEDURE: [place] UPPER GI ENDOSCOPY PERFORMED; COMMENT: Large paraesophageal [...] 1:15 PM EDT Office Visit Nephrology [address] [phone] Te Davis MD [address] [facility] [address] [place] [address] Health Maintenance Due Date Last [...] is recommended in 1 year. Mammo Location: [facility], [address] [place] [address], [address], . -------- FINAL REPORT -------- Dictated By: Sabi Sampson Dictated Date: 11/27/2024 11:58 ET Assigned Physician: Sabi Sampson Reviewed and Electronically Signed By: Sabi Sampson Signed Date: 11/27/2024 12:00 ET Workstation ID: [id number] Transcribed By: Self Edit Transcribed Date: 11/27/2024 [...] is recommended in 1 year. Mammo Location: [facility], [address] [place] [address], [address], . -------- FINAL REPORT -------- Dictated By: Sabi Sampson Dictated Date: 11/27/2024 11:58 ET Assigned Physician: Sabi Sampson Reviewed and Electronically Signed By: Sabi Sampson Signed Date: 11/27/2024 12:00 ET Workstation ID: [id number] Transcribed By: Self Edit Transcribed Date: 11/27/2024 [...] Recently Relevant to Health Maintenance Insurance MEDICARE [facility] Member Subscriber Plan / Payer (Ef fective 2018-Present) Name:Zoë Parks Relation to Subscriber:Self Name:Zoë Parks Payer ID:[id number] Type:Not on file Address: [address] [place] [id number] Care Teams Carrier Loader Relationship Specialty Start Date End Date Rosalva Stevens MD [address] [place] [address] [address] [place] [address] PCP - General 07/09/15
== END 2025-01-22 16:48 | disposition home or self-care (01) ==
LOC: HO.HMCFM 15:39
PROVIDERS: PCP Internal Medicine; Visit Provider Internal Medicine
DX: Z00.00 Encounter for general adult medical examination without abnormal findings (principal); F33.40 Major depressive disorder, recurrent, in remission, unspecified; G47.33 Obstructive sleep apnea (adult) (pediatric)

== ENCOUNTER → 2025-01-22 15:38 | Outpatient (BNVA) | payer MEDICARE, SELFPAY | PROVIDERS: PCP Internal Medicine; Visit Provider Internal Medicine ==

== ENCOUNTER → 2025-01-26 19:30 | Outpatient (REF) | payer MEDICARE, SELFPAY ==
--- OUTSIDE RECORDS SUMMARY | 2025-01-26 22:27 | XMS_ITS | Clinical Summary ---
Author Organization [address] Address [address] [place] [address] Phone Care Team Providers Care Urban Renewal Manager Name Role Phone Rosalva Stevens MD Primary Care Provider [phone] Encounters Date Type Department Care Team Description 11/27/2024 10:55 AM EST - 11/27/2024 11:59 PM EST Hospital Encounter Radiology Department - [address] [phone] Encounter for screening mammogram for breast cancer Discharge Disposition: Home or Self Care from Last 3 Months Surgical History Surgery Date Site/Laterality Comments NECK SURGERY age 1 PROCEDURE: HISTORICAL NECK SURGERY; COMMENT: Brachial cleft cyst removal HAND SURGERY PROCEDURE: HISTORICAL HAND SURGERY; COMMENT: Trigger finger OTHER SURGICAL HISTORY PROCEDURE: MN DILATION & CURETTAGE DX&/THER NONOBSTETRIC COLONOSCOPY 04/17/2015 PROCEDURE: HISTORICAL COLONOSCOPY; COMMENT: tics and hyperplastic polyp; repeat in 10 yrs under propofol UPPER GASTROINTESTINAL ENDOSCOPY 04/04/2018 PROCEDURE: MN UPPER GI ENDOSCOPY PERFORMED; COMMENT: Large paraesophageal [...] 03/21/2025 1:15 PM EDT Office Visit Nephrology [address] [phone] Te Davis MD [address] [facility] [address] [place] [address] Health Maintenance Due Date Last [...] 11/18/2023, 11/11/2022, Additional history exists RSV Immunization Adult Patients (1 - 1-dose 75+ series) 2028 Osteoporosis [...] is recommended in 1 year. Mammo Location: [facility], [address] [place] [address], [id number], . -------- FINAL REPORT -------- Dictated By: Sabi Sampson Dictated Date: 11/27/2024 11:58 ET Assigned Physician: Sabi Sampson Reviewed and Electronically Signed By: Sabi Sampson Signed Date: 11/27/2024 12:00 ET Workstation ID: [id number] Transcribed By: Self Edit Transcribed Date: 11/27/2024 [...] is recommended in 1 year. Mammo Location: [facility], [address] [place] [address], [address], . -------- FINAL REPORT -------- Dictated By: Sabi Sampson Dictated Date: 11/27/2024 11:58 ET Assigned Physician: Sabi Sampson Reviewed and Electronically Signed By: Sabi Sampson Signed Date: 11/27/2024 12:00 ET Workstation ID: [id number] Transcribed By: Self Edit Transcribed Date: 11/27/2024 11:58 ET Rosalva tSevens MD IMG BI PROCEDURES Final Result * [...] classified as having normal bone density. The [facility] Department of Internal Medicine recommends [...] beclassified as having normal bone density. The [facility] Department of Internal Medicine recommendsusing [...] of fracture risk by FRAX. Giovanna NGUYEN [facility] DXA PROCEDURES Final R esult from Last 3 Months or Most Recently Relevant to Health Maintenance Insurance MEDICARE [facility] Care Teams Urban Renewal Manager Relationship Specialty Start Date End Date Rosalva Stevens MD [address] [place] [address] [address] [place] [address] PCP - General 07/09/15
== END ==
LOC: HO.SL 19:30
PROVIDERS: PCP Internal Medicine; Visit Provider Internal Medicine
DX: G47.33 Obstructive sleep apnea (adult) (pediatric) (principal)
CPT/HCPCS: 95810

== ENCOUNTER → 2025-01-26 22:55 | Outpatient (BNV) | payer MEDICARE, SELFPAY | PROVIDERS: PCP Internal Medicine; Visit Provider Psychiatry & Neurology Neurology | DX: G47.33 Obstructive sleep apnea (adult) (pediatric) (principal) | CPT/HCPCS: 95810 ==

== ENCOUNTER 2025-02-04 10:53 | Outpatient (REF) | payer MEDICARE, SELFPAY ==
--- NOTE | ~2025-02-04 | MR_ITS ---
CLINICAL HISTORY: M19.011 - Primary osteoarthritis, right shoulder MR right shoulder Comparison: DX/SR - XR SHOULDER RT MIN 2V - 03/01/24 12:50 EDT Findings: No fracture or dislocation of the osseous structures. There is a mild amount of cystic change in the humeral head, glenoid and acromion, degenerative. There is an os acromial. Moderate acromioclavicular joint space narrowing with mild osteophytosis, degenerative. Severe glenohumeral joint space narrowing with large osteophytosis, degenerative. Moderate-sized joint effusion with synovitis. Trace fluid in the subacromial/subdeltoid bursa. Fluid in the subcoracoid bursa with synovitis. Increased signal in the supraspinatus tendon. Low signal within the supraspinatus tendon likely indicates calcific tendinitis, also seen on the radiographs, measuring 7 mm. There is partial tear of the supraspinatus tendon without retraction. There is increased signal in the subscapularis tendon. Fluid in the subcoracoid bursa which protrudes through the subscapularis tendon/muscle at the superior aspect. No complete tear or retraction. There is increased signal within the infraspinatus tendon without complete tear or retraction. There is mild atrophy of supraspinatus, subscapularis and infraspinatus. Teres minor is intact, however is also atrophic. There is protrusion of fluid in this region. The labrum is torn. There is full-thickness glenohumeral chondromalacia. The biceps tendon is intact, however is increased in signal. There is increased fluid in the tendon sheath. The coracoacromial and coracohumeral ligaments are intact. Cutaneous and subcutaneous tissues are normal. Adjacent to the quadrilateral space there is large osteophytosis and extension of the joint effusion. Impression: Severe glenohumeral degenerative change with full-thickness chondromalacia and large osteophytosis. Joint effusion with synovitis. Supraspinatus, subscapularis and infraspinatus tendinopathy. Partial tear within supraspinatus. Calcific tendinitis involving supraspinatus. Tear of subscapularis through which fluid protrudes from the subcoracoid bursa. Atrophy of the rotator cuff musculature. Tear of the labrum, likely degenerative. Biceps tendinopathy with tenosynovitis. This document has been electronically signed by: Pamela Ornelas MD on 02/05/2025 22:11:36
== END 2025-02-04 10:54 | disposition home or self-care (01) ==
LOC: HO.MRI 10:53
PROVIDERS: PCP Internal Medicine; Visit Provider Internal Medicine
DX: M19.011 Primary osteoarthritis, right shoulder (principal); M25.811 Other specified joint disorders, right shoulder
CPT/HCPCS: 73221

== ENCOUNTER → 2025-02-04 10:53 | Outpatient (BNV) | payer MEDICARE, SELFPAY | PROVIDERS: PCP Internal Medicine; Visit Provider Radiology Diagnostic Radiology | DX: M19.011 Primary osteoarthritis, right shoulder (principal); S43.432A Superior glenoid labrum lesion of left shoulder, initial encounter | CPT/HCPCS: 73221 ==

== ENCOUNTER 2025-02-06 12:07 | Outpatient (REF) | payer MEDICARE, SELFPAY ==
--- OUTSIDE RECORDS SUMMARY | 2025-02-06 14:50 | XMS_ITS | Clinical Summary ---
Author Organization [address] Address [address] [place] [address] Phone Care Team Providers Care Pharmacy Operations Specialist Name Role Phone Rosalva Stevens MD Primary Care Provider Encounters Date Type Department Care Team Description 11/27/2024 10:55 AM EST - 11/27/2024 11:59 PM EST Hospital Encounter Radiology Department - [address] [phone] Encounter for screening mammogram for breast cancer [...] 03/21/2025 1:15 PM EDT Office Visit Nephrology [address] [phone] Te Davis MD [address] [facility] [address] [place] [address] Health Maintenance Due Date Last [...] season) 2024 08/15/2021, 01/24/2021, 01/01/2021 Influenza Vaccine (Season Ended) 2025 Breast Cancer Screening 11/27/2026 11/27/19, 11/18/2023, 11/11/2022, [...] age to complete this topic Meningococcal B Vaccine Aged Out No l onger eligible based on patient's age to complete [...] is recommended in 1 year. Mammo Location: [facility], [address] [place] [address], [address], . -------- FINAL REPORT -------- Dictated By: Sabi Sampson Dictated Date: 11/27/2024 11:58 ET Assigned Physician: Sabi Sampson Reviewed and Electronically Signed By: Sabi Sampson Signed Date: 11/27/2024 12:00 ET Workstation ID: [id number] Transcribed By: Self Edit Transcribed Date: 11/27/2024 [...] is recommended in 1 year. Mammo Location: [facility], [address] [place] [address], [address], . -------- FINAL REPORT -------- Dictated By: Sabi Sampson Dictated Date: 11/27/2024 11:58 ET Assigned Physician: Sabi Sampson Reviewed and Electronically Signed By: Sabi Sampsno Signed Date: 11/27/2024 12:00 ET Workstation ID: [id number] Transcribed By: Self Edit Transcribed Date: 11/27/2024 [...] classified as having normal bone density. The [facility] Department of Internal Medicine recommends using [...] beclassified as having normal bone density. The [facility] Department of Internal Medicine recommendsusing National [...] of fracture risk by FRAX. Giovanna NGUYEN [facility] DXA PROCEDURES Final R esult from Last 3 Months or Most Recently Relevant to Health Maintenance Insurance MEDICARE [facility] Care Teams Pharmacy Operations Specialist Relationship Specialty Start Date End Date Rosalva Stevens MD [address] [place] [id number] PCP - General 07/09/15
[2025-02-09 04:18] LABS: Zinc 60 mcg/dL (60-130)
== END 2025-02-06 12:08 | disposition home or self-care (01) ==
LOC: HO.LAB 12:07
PROVIDERS: PCP Internal Medicine; Visit Provider Internal Medicine Gastroenterology
DX: E60 Dietary zinc deficiency (principal)
CPT/HCPCS: 36415; 84630

== ENCOUNTER 2025-02-20 09:22 | Day surgery (SDC) | payer MEDICARE, SELFPAY ==
--- OUTSIDE RECORDS SUMMARY | 2024-12-27 13:45 | XMS_ITS | Clinical Summary ---
Author Organization [address] Address [address] [place] [address] Phone Care Team Providers Care Filenet P8 Developer Name Role Phone Rosalva Stevens MD Primary Care Provider [phone] Encounters Date Type Department Care Team Description 11/27/2024 10:55 AM EST - 11/27/2024 11:59 PM EST Hospital Encounter Radiology Department - [address] [phone] Encounter for screening mammogram for breast cancer Discharge Disposition: Home or Self Care from Last 3 Months Surgical History Surgery Date Site/Laterality Comments NECK SURGERY age 1 PROCEDURE: HISTORICAL NECK SURGERY; COMMENT: Brachial cleft cyst removal HAND SURGERY PROCEDURE: HISTORICAL HAND SURGERY; COMMENT: Trigger finger OTHER SURGICAL HISTORY PROCEDURE: [place] DILATION & CURETTAGE DX&/THER NONOBSTETRIC COLONOSCOPY 04/17/2015 PROCEDURE: HISTORICAL COLONOSCOPY; COMMENT: tics and hyperplastic polyp; repeat in 10 yrs under propofol UPPER GASTROINTESTINAL ENDOSCOPY 04/04/2018 PROCEDURE: [place] UPPER GI ENDOSCOPY PERFORMED; COMMENT: Large paraesophageal [...] 03/21/2025 1:15 PM EDT Office Visit Nephrology [address] [phone] Te Davis MD [address] [facility] [address] [place] [address] Health Maintenance Due Date Last Done Comments Pneumococcal Vaccine: 50+ Years (1 of 1 - PCV) 12/24/2003 Zoster Vaccines (1 of 2) 12/24/2003 DTaP,Tdap,and Td Vaccines (3 - Td or [...] patient's age to complete this topic Meningococcal B Vacine Aged Out No lo nger eligible based on patient's age to complete [...] is recommended in 1 year. Mammo Location: [facility], [address] [place] [address], [address], . -------- FINAL REPORT -------- Dictated By: Sabi Sampson Dictated Date: 11/27/2024 11:58 ET Assigned Physician: Sabi Sampson Reviewed and Electronically Signed By: Sabi Sampson Signed Date: 11/27/2024 12:00 ET Workstation ID: [id number] Transcribed By: Self Edit Transcribed Date: 11/27/2024 [...] is recommended in 1 year. Mammo Location: [facility], [address] [place] [address], [address], . -------- FINAL REPORT -------- Dictated By: Sabi Sampson Dictated Date: 11/27/2024 11:58 ET Assigned Physician: Sabi Sampson Reviewed and Electronically Signed By: Sabi Sampson Signed Date: 11/27/2024 12:00 ET Workstation ID: [id number] Transcribed By: Self Edit Transcribed Date: 11/27/2024 [...] classified as having normal bone density. The [facility] Department of Internal Medicine recommends [...] beclassified as having normal bone density. The [facility] Department of Internal Medicine recommendsusing [...] of fracture risk by FRAX. Giovanna NGUYEN G DXA PROCEDURES Final R esult from Last 3 Months or Most Recently Relevant to Health Maintenance Insurance MEDICARE [id number] Member Subscriber Plan / Payer (Ef fective 2018-Present) Name:Zoë Parks Relation to Subscriber:Self Name:Zoë Parks Payer ID:[id number] Type:Not on file Address: [address] [place] [id number] Care Teams Filenet P8 Developer Relationship Specialty Start Date End Date Rosalva Stevens MD [address] [place] [address] [address] [place] [address] PCP - General 07/09/15
--- OUTSIDE RECORDS SUMMARY | 2024-12-27 13:45 | XMS_ITS | Encounter Summary ---
Author Organization [facility] Address [address] [place] [address] Care Team Providers Care Facilities Plant Engineer Name Role Phone Rosalva Stevens MD Primary Care Provider [phone] Reason for Visit * Imaging (Routine) - Closed Specialty Diagnoses / Procedures Referred By Contac t Referred To Contact Radiology Diagnoses Encounter for screening mammogram for breast cancer Procedures MG Mammo Digital Screening w Alejandro bilat MG Mammo Digital Screening w Alejandro bilRosalva Oliver MD [address] [place] [address] [address] [place] [address] Phone: tel: fax: [facility] Referral ID Status Reason Start Date Expiration Date Visits Re quested Visits Authorized [id number] Closed 08/10/2024 08/10/2025 1 1 Encounter Details Date Type Department Care Team (Latest Contact Info) Description 11/27/2024 10:55 AM EST - 11/27/2024 11:59 PM EST Hospital Encounter Radiology Department [address] [phone] Encounter for screening mammogram for breast cancer [...] 1:15 PM EDT Office Visit Nephrology - [address] [phone] Te Davis MD [address] [place] [address] [place] [address] documented as of this encounter Procedures Procedure [...] is recommended in 1 year. Mammo Location: [facility], [address] [place] [address], [address], . -------- FINAL REPORT -------- Dictated By: Sabi Sampson Dictated Date: 11/27/2024 11:58 ET Assigned Physician: Sabi Sampson Reviewed and Electronically Signed By: Sabi Sampson Signed Date: 11/27/2024 12:00 ET Workstation ID: [id number] Transcribed By: Self Edit Transcribed Date: 11/27/2024 [...] is recommended in 1 year. Mammo Location: [facility], [address] [place] [address], [address], . -------- FINAL REPORT -------- Dictated By: Sabi Sampson Dictated Date: 11/27/2024 11:58 ET Assigned Physician: Sabi Sampson Reviewed and Electronically Signed By: Sabi Sampson Signed Date: 11/27/2024 12:00 ET Workstation ID: [id number] Transcribed By: Self Edit Transcribed Date: 11/27/2024 11:58 ET us Rosalva Stevens MD IMG BI PROCEDURES Final Result documented in this encounter Visit Diagnoses Diagnosis Encounter for screening mammogram for breast cancer documented in this encounter Care Teams Facilities Plant Engineer Relationship Specialty Start Date End Date Rosalva Stevens MD [address] [place] [address] PCP - General 07/09/15 documented as of this encounter
[2025-02-16 14:41] VITALS: BMI 32.7
--- NOTE | 2025-02-19 09:15 | HO.ANESPROP2 ---
Documented by User: Nory Valero NP 02/19/25 09:15 HPI - Anesthesia Eval Consult details Narrative: 69yo F for Upper Endoscopy and Colonoscopy PMF Active Problems Active Problems: All Active Problems Zinc deficiency (Acute) Medicare annual wellness visit, subsequent (Acute) Shoulder impingement (Acute) Major depressive disorder, recurrent, in remission (Acute) Abnormal LFTs (Acute) Mallet deformity of right middle finger (Acute) Mallet finger of right finger(s) (Acute) Diarrhea (Acute) Cervical radiculopathy at C8 (Acute) Neck pain (Acute) Generalized anxiety disorder with panic attacks (Acute) Obstructive sleep apnea (Acute) Post herpetic neuralgia (Acute) Hypertension (Acute) Osteoarthritis of glenohumeral joint (Acute) Right shoulder pain (Acute) Past Medical History Medical History Major depressive disorder, recurrent, moderate Shingles Acid reflux Hx of mammogram Severe obesity Seasonal allergies Post herpetic neuralgia Obstructive sleep apnea Anxiety Depression Family History Family History Mother Cardiac arrest Father Cancer of prostate Sister Multiple sclerosis Arthritis Surgical History Surgical History Hx of colonoscopy History of right hip replacement Hx of endoscopy Social History Social History Housing: House Alcohol intake: never Patient Tobacco Use Status: Current everyday Tobacco user Tobacco use type: Cigarette Cigarette Packs Per Day: 0.25 Cigarettes Per Day: 5 Years Smoked: 15 e-Cigarette/Vaping Use: Never Used service: No 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al status: retired 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 Cognitive needs: No Hearing needs: No Vision needs: No Meds Allergies Allergy/AdvReac Type Severity Reaction Status Date / Time No Known Allergies Allergy Verified 11/28/24 11:13 Home Medications ?Medication ?Instructions ?Recorded ?Confirmed ?Last Taken ?Type CPAP 03/01/24 08/10/24 Unknown History cholecalciferol (vitamin D3) 50 50 mcg PO DAILY 03/01/24 02/16/25 Unknown History mcg (2,000 unit) capsule Exam Height,Weight and Vital Signs: Height 5 ft 1 in Weight 78.471 kg Assessment and Plan Assessment Anesthesia Assessment: Chart Reviewed Documented by User: Oscar Murphy MD 02/20/25 13:22 PMFSH Past Medical History Medical History Major depressive disorder, recurrent, moderate Shingles Acid reflux Hx of mammogram Severe obesity Seasonal allergies Post herpetic neuralgia Obstructive sleep apnea Anxiety Depression Family History Family History Mother Cardiac arrest Father Cancer of prostate Sister Multiple sclerosis Arthritis Family history of problems with anesthesia: No Surgical History Surgical History Hx of colonoscopy History of right hip replacement Hx of endoscopy History of Problems with Anesthesia: No Social History Social History Housing: House Alcohol intake: never Patient Tobacco Use Status: Current everyday Tobacco user Tobacco use type: Cigarette Cigarette Packs Per Day: 0.25 Cigarettes Per Day: 5 Years Smoked: 15 e-Cigarette/Vaping Use: Never Used service: No 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al status: retired 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 Cognitive needs: No Hearing needs: No Vision needs: No Meds Allergies Allergy/AdvReac Type Severity Reaction Status Date / Time No Known Allergies Allergy Verified 11/28/24 11:13 Home Medications ?Medication ?Instructions ?Recorded ?Confirmed ?Last Taken ?Type CPAP 03/01/24 08/10/24 Unknown History cholecalciferol (vitamin D3) 50 50 mcg PO DAILY 03/01/24 02/16/25 Unknown History mcg (2,000 unit) capsule Exam Airway Mallampati Class: II TM Dist: <=3cm Neck ROM: Full Loose/Missing/Broken Teeth: No Heart: ok Lungs: ok Assessment and Plan Assessment Anesthesia Assessment: Anesthesia Plan Discussed Final Anesthetic Review Family History of Problems with Anesthesia: No History of Problems with Anesthesia: No NPO: Yes ASA Class: III Final Preanesthetic Review: No Changes in Pt Med Stat, Meds/Allgs Chart Reviewed, Consent Obtained/Reviewed and Anes Risks/Benef Reviewed Patient Risk: Intermediate Procedure Risk: Intermediate Anesthetic Plan Anesthetic Plan: Agree w/ Assess. and Plan and TIVA Disposition: Standard PACU
[2025-02-20 10:32] VITALS: BMI 31.7
--- NOTE | 2025-02-20 10:45 | MHC.SHP ---
Pre-Procedural Eval Section A - 24 Hr Update-Section A only Date of Service: 02/20/25 Section B - Complete if H&P > 30 days Chief Complaint: Diarrhea, unspecified Relevant Family History (Specify if Yes): No Relevant Social History: Tobacco Use Present Medications: see Short Stay Collaborative assessment Medical History: Significant History (Major depressive disorder, recurrent, moderate Shingles Acid reflux Hx of mammogram Severe obesity Seasonal allergies Post herpetic neuralgia Obstructive sleep apnea Anxiety Depression) History of Previous Operations: Relevant previous surgery/procedure and date(s) (Hx of colonoscopy History of right hip replacement Hx of endoscopy) Allergies: Allergies Allergy/AdvReac Type Severity Reaction Status Date / Time No Known Allergies Allergy Verified 11/28/24 11:13 Review of Systems Sugical H&P ROS: Negative: Constitution, Cardiovascular, Respiratory, Neurological, Psychiatric, Hem-Onc, Allergic/Immunologic, Gastrointestinal, Genitourinary, Musculoskeletal, Integumentary, Endocrine and Eyes/Ears/Nose/Throat Exam Surgical H&P Exam: Normal: HEENT, Normal: Heart, Normal: Lungs, Normal: Extremities, Normal: Abdomen, Normal: Skin and Normal: Neurological Plan Diagnosis/Plan: Unchanged I have reviewed the history and physical and performed a pertinent physical examination on my patient. No changes have occurred unless specified. Time Spent With Patient Time: Total time managing care of this patient today ____ minutes.
[2025-02-20] MEDS: Lactated Ringers 1,000 ML 100 ML IVCONT (10:49)
--- NOTE | 2025-02-20 13:14 | HO.OPN-COLON ---
Colonoscopy Operative Note Operative Note Date of Service: 02/20/25 Narrative: Operative Information Procedure Description: EGD, Colonoscopy Indication: diarrhea, dysphagia Anesthesia: MAC FLEXIBLE TRANSORAL UPPER GASTROINTESTINAL ENDOSCOPY AND COLONOSCOPY PROCEDURE NOTE UPPER ENDOSCOPY Consent: Indications for the procedure and potential complications of bleeding, perforation, reaction to medications and missed diagnosis were discussed with the patient and informed consent was obtained. Instrument: Olympus GIF H 190 J mid size upper endoscope Monitoring: Vital signs and clinical assessment, continuous EKG monitoring, Pulse oximetry, Carbon Dioxide monitoring and blood pressure monitoring were done throughout the procedure. Procedure: The patient was placed in the left lateral decubitis position and pre-procedure medications were administered and a bite block was placed. The endoscope was inserted into the mouth and advanced under direct vision to the third part of duodenum. A careful inspection was made as the upper endoscope was withdrawn including a retroflexed examination of the proximal stomach; Findings and interventions are described below. Findings: Larynx:normal Esophagus: GE junction at 40 cm, diaphragm hiatus at 40 cm, schatzki ring noted with mild erythema and small hiatal hernia - balloon dilation done at UES to 18 mm with heme noted also at LES to 20 mm, no tears seen Stomach: Patchy erythema with small amount of retianed food, obscuring view of fundus. Biopsies were obtained. Grade 2 flap valve on retroflexed examination of the cardia. Duodenum: Normal bulb and descending duodenum, bx taken Intervention: Biopsies as noted above, COLONOSCOPY Instrument: Olympus variable stiffness pediatric scope 190L Colonoscopy Monitoring: Vital signs and clinical assessment, continuous EKG monitoring, Pulse oximetry, Carbon Dioxide monitoring and blood pressure monitoring were done throughout the procedure. Colon withdrawal time was 22 minutes. Procedure: The patient was placed in the left lateral decubitis position and pre-procedure medications were administered. After a digital rectal examination of the ano-rectum, the video colonoscope was inserted into the rectum and advanced through the colon to the cecum/TI. The colonoscope was slowly withdrawn in a retrograde panoramic fashion and the colon mucosa was carefully examined including a retroflexed view of the rectum. Findings and interventions are described below. Procedure Difficulty:moderate Findings: random colo bx taken as well Terminal Ileum- unable to intubate, poor prep Cecum: poor prep Ascending Colon: normal Transverse Colon -normal Descending Colon: x 3 sessile polyps 5-7 mm removed with cold snare Sigmoid Colon: moderate severe diverticulosis with luminal narrowing Rectum: Retroflexion with small internal hemorrhoids, grade I, semi pedunculated polyp at around 18-20 cm from anal verge, injected with epinephrine then removed with combination of hot and cold snare with one clip applied Anorectum - normal Colon preparation: [place] Bowel Preparation Scale Right colon; 1 Transverse colon: 2 Left colon; 2 (0 = Unprepared colon segment with mucosa not seen due to solid stool that cannot be cleared. 1 = Portion of mucosa of the colon segment seen, but other areas of the colon segment not well seen due to staining, residual stool and/or opaque liquid. 2 = Minor amount of residual staining, small fragments of stool and/or opaque liquid, but mucosa of colon segment seen well. 3 = Entire mucosa of colon segment seen well with no residual staining, small fragments of stool or opaque liquid) Impression and Post Procedure Diagnosis: Endoscopy Findings: schatzki ring hiatal hernia esophagitis possibl gastroparesis Colonoscopy Findings: diverticulosis colon polyps x 4 internal hemorrhoids Plan: Await Pathology results Repeat EGD and Colonoscopy in 6 months or earlier if clinically indicated with 2 d clear prep next time High fiber diet leaflet avoid straining at stool, epsom salts and sitz bath, anusol supps or cream check if taking PPI--if not should commence -can start with low dose and titrate up if needed Above findings were reviewed with the patient and relevant handouts were provided if indicated.
[2025-02-20 13:26] VITALS: BP 117/49; PULSE 93; RESP 18; TEMP 36.7; O2SAT 98
[2025-02-20 13:41] VITALS: BP 142/68; PULSE 76; RESP 20; TEMP 36.9; O2SAT 97
== END 2025-02-20 14:09 | disposition home or self-care (01) ==
PROVIDERS: PCP Internal Medicine; Visit Provider Internal Medicine Gastroenterology
PROC: (CPT 45385; principal; 2025-02-20 12:10)
DX: R19.7 Diarrhea, unspecified (principal); D12.4 Benign neoplasm of descending colon; D12.8 Benign neoplasm of rectum; K57.30 Diverticulosis of large intestine without perforation or abscess without bleeding; K64.0 First degree hemorrhoids; R13.10 Dysphagia, unspecified; K22.2 Esophageal obstruction; K21.9 Gastro-esophageal reflux disease without esophagitis; K20.80 Other esophagitis without bleeding; K29.80 Duodenitis without bleeding; K29.50 Unspecified chronic gastritis without bleeding; K44.9 Diaphragmatic hernia without obstruction or gangrene; G47.33 Obstructive sleep apnea (adult) (pediatric); B02.29 Other postherpetic nervous system involvement; R79.89 Other specified abnormal findings of blood chemistry; F33.1 Major depressive disorder, recurrent, moderate; E66.01 Morbid (severe) obesity due to excess calories; Z68.32 Body mass index [BMI] 32.0-32.9, adult; Z99.89 Dependence on other enabling machines and devices; Z79.899 Other long term (current) drug therapy; F17.210 Nicotine dependence, cigarettes, uncomplicated
CPT/HCPCS: 45385; 45380; 45381; 43249; 43239; 88305; 88313; 88342; C1726; J0171; J2003; J2704; J3010

== ENCOUNTER → 2025-02-20 09:22 | Outpatient (BNV) | payer MEDICARE, SELFPAY | PROVIDERS: PCP Internal Medicine; Visit Provider Internal Medicine Gastroenterology | DX: R19.7 Diarrhea, unspecified (principal); D12.4 Benign neoplasm of descending colon; D12.8 Benign neoplasm of rectum; K57.30 Diverticulosis of large intestine without perforation or abscess without bleeding; K64.0 First degree hemorrhoids; K22.2 Esophageal obstruction; K20.90 Esophagitis, unspecified without bleeding | CPT/HCPCS: 43239; 43249; 45380; 45381; 45385 ==

== ENCOUNTER 2025-04-23 13:29 | Outpatient (AMB) | payer MEDICARE, SELFPAY ==
--- NOTE | 2025-04-23 13:31 | MHC.OFFVIS ---
Vital Signs 04/23/25 13:34 Height 5 ft 1 in Weight 169 lb 12.095 oz BMI 32.1 BP 136/62 Blood Pressure Location Lt brachial Position Sitting Pulse 93 Intake Visit Reasons: s/p double Intake Note: Rosemary presents in the office as a follow up EGD/COLO. CC: States that she is just here for results today! Allergies No Known Allergies Allergy (Verified 04/23/25 13:36) HPI HPI s/p double: Details: 69 yr old f w/ DARIA, FIDEL< HTN, OA here for assessment of burping and prior issues with diarrhea \ RECAP: She had a week of dirrhea 08/17 she had raised faecal calprotectin she noted gas sx and cramps she modified diet she has bouts of lightheaded ness stool has been more consistent she denies nsaids not taking aspirin she can food getting stuck and burping mid chest area-- she takes PPI intermittently she has had colonoscopy 5 yrs ago --normal per her EGD 2017 for atypical chest pain EGD/colo 01/2025 Endoscopy Findings: schatzki ring hiatal hernia esophagitis possible gastroparesis Colonoscopy Findings: diverticulosis colon polyps x 4 internal hemorrhoids path- TA, random bx negative US 2024-- nml elastography, hepatomegaly Interim: reviewed results from endoscopy discussed taking omerpazole polyps on colonoscopy appetite is good weight is stable no blood in stool, no melena EXAM: GENERAL: The patient is well developed and nontoxic. VITAL SIGNS:see workflow HEENT: Nonicteric sclerae, PERRLA, EOMI. Oropharynx clear. Moist mucous membranes. Conjunctivae appear well perfused. No thyroid mass. CHEST: Chest wall is nontender. HEART: Regular rate and rhythm without murmurs. LUNGS: Clear to auscultation bilaterally. ABDOMEN: Soft, positive bowel sounds, nontender, no organomegaly.no flank tenderness SKIN: No rash, no excessive bruising, petechiae, or purpura. NEUROLOGIC: Cranial nerves II-XII intact without motor/sensory deficit. Psych: normal affect A/P: 1/ Abn LFT, prob PADRON 2/ Polyps, poor prep on right PLAN: 1/ rept colo later this year or early next 2/ recheck liver tests 3/ advised to take PPI scheduled [facility] Medical History Major depressive disorder, recurrent, moderate Shingles Acid reflux Hx of mammogram Severe obesity Seasonal allergies Post herpetic neuralgia Obstructive sleep apnea Anxiety Depression Surgical History Hx of colonoscopy History of right hip replacement Hx of endoscopy Family History Mother Cardiac arrest Father Cancer of prostate Sister Multiple sclerosis Arthritis Social History Housing: House Alcohol intake: never Patient Tobacco Use Status: Current everyday Tobacco user Tobacco use type: Cigarette Cigarette Packs Per Day: 0.25 Cigarettes Per Day: 5 Years Smoked: 15 e-Cigarette/Vaping Use: Never Used service: No 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al status: retired 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 - Other specified abnormal findings of blood chemistry Category: Medical Plan: as above Orders: Orders Comprehensive Met. Panel Today K75.81 - Nonalcoholic steatohepatitis (PADRON), R7. - Other specified abnormal findings of blood chemistry Vitamin B1 Today R7. - Other specified abnormal findings of blood chemistry Vitamin B3 (Niacin) Today R7. - Other specified abnormal findings of blood chemistry Vitamin B12 and Folate Today R7. - Other specified abnormal findings of blood chemistry Complete Blood Count Auto Diff Today R7. - Other specified abnormal findings of blood chemistry Vitamin B6 Today R7. - Other specified abnormal findings of blood chemistry US abdomen comp w elastography Today R7. - Other specified abnormal findings of blood chemistry Medications: New sodium,potassium,mag sulfates 17.5-3.13-1.6 gram (Suprep Bowel Prep Kit) DILUTE; drink 1/2 at 6-8 pm and half at 11 PM- 1AM 354 mL 0RF Coding Level of Care Code Est Pt Level 3 (08466) Diagnoses Abnormal LFTs
[2025-04-23 13:34] VITALS: BP 136/62; PULSE 93; BMI 32.1
--- OUTSIDE RECORDS SUMMARY | 2025-04-23 13:58 | XMS_ITS | Clinical Summary ---
Author Organization [address] Address [address] [place] [phone] Phone Care Team Providers Care Street Commissioner Name Role Phone Rosalva Stevens MD Primary Care Provider [phone] Surgical History Surgery Date Site/Laterality Comments NECK SURGERY age 1 PROCEDURE: HISTORICAL NECK SURGERY; COMMENT: Brachial cleft cyst removal HAND SURGERY PROCEDURE: HISTORICAL HAND SURGERY; COMMENT: Trigger finger OTHER SURGICAL HISTORY PROCEDURE: [place] DILATION & CURETTAGE DX&/THER NONOBSTETRIC COLONOSCOPY 04/17/2015 PROCEDURE: HISTORICAL COLONOSCOPY; COMMENT: tics and hyperplastic polyp; repeat in 10 yrs under propofol UPPER GASTROINTESTINAL ENDOSCOPY 04/04/2018 PROCEDURE: [place] UPPER GI ENDOSCOPY PERFORMED; COMMENT: Large paraesophageal [...] Care Team (Late st Contact Info) Description 07/25/2025 1:15 PM EDT Office Visit Nephrology [address] [place] [address] Te Davis MD 100 [facility] 200 [place] [address] Health Maintenance Due Date Last Done Comments [...] is recommended in 1 year. Mammo Location: [facility], [address] [place] [address], [address], . -------- FINAL REPORT -------- Dictated By: Sabi Sampson Dictated Date: 11/27/2024 11:58 ET Assigned Physician: Sabi Sampson Reviewed and Electronically Signed By: Sabi Sampson Signed Date: 11/27/2024 12:00 ET Workstation ID: [id number] Transcribed By: Self Edit Transcribed Date: 11/27/2024 [...] evidence of suspicious mass or architectural distortion. No worrisome calcifications are evident. There has been no significant change from prior exam(s). BREAST DENSITY: B - [...] is recommended in 1 year. Mammo Location: [facility], [address] [place] [address], [address], . -------- FINAL REPORT -------- Dictated By: Sabi Sampson Dictated Date: 11/27/2024 11:58 ET Assigned Physician: Sabi Sampson Reviewed and Electronically Signed By: Sabi Sampson Signed Date: 11/27/2024 12:00 ET Workstation ID: [id number] Transcribed By: Self Edit Transcribed Date: 11/27/2024 11:58 ET us Rosalva Stevens MD IMG BI PROCEDURES Final Result * DXA BONE DENSITY STUDY 1+ SITS AXIAL SKEL (11/21/2020 10:04 AM EST) Anatomical Region Laterality Modality Bone Densitometr y 10/28/2020 10:3 1 AM EST Narrative 11/21/2020 2:52 PM EST BONE DENSITY Lumbar Spine T-score is +0.8 (SD relative to 20-29 y/o adult) Z-score is +2.7 (SD relative to age matched peers) This is normal by criteria defined by the WHO. Left Hip T-score is -0.8 Z-score is +0.8 This is normal by criteria defined by the WHO. Comparison exam(s): significant decrease in bone density of hip when compared to most recent bone density examination Confidence [...] Recently Relevant to Health Maintenance Insurance MEDICARE [facility] Care Teams Street Commissioner Relationship Specialty Start Date End Date Rosalva Stevens MD [address] [place] [phone] PCP - General 07/09/15
== END 2025-04-23 15:04 | disposition home or self-care (01) ==
LOC: HO.HGI 13:30
PROVIDERS: PCP Internal Medicine; Visit Provider Internal Medicine Gastroenterology
DX: R79.89 Other specified abnormal findings of blood chemistry (principal)
CPT/HCPCS: 99213

== ENCOUNTER → 2025-04-23 13:29 | Outpatient (BNVA) | payer MEDICARE, SELFPAY | PROVIDERS: PCP Internal Medicine; Visit Provider Internal Medicine Gastroenterology | DX: R79.89 Other specified abnormal findings of blood chemistry (principal) | CPT/HCPCS: 99212 ==

== ENCOUNTER 2025-04-24 09:31 | Outpatient (AMB) | payer MEDICARE, SELFPAY ==
--- NOTE | 2025-04-24 09:42 | MHC.PC.OV ---
Vital Signs 04/24/25 09:45 Height 5 ft 1 in Weight 174 lb 4 oz BMI 32.9 BP 108/72 Blood Pressure Location Rt brachial Position Sitting Respiration 14 Pulse 80 Pulse Source Pulse Oximeter Temp 98.3 F Temp Source Oral Pulse Oximetry (%) 95 Oxygen Delivery Method Room Air Intake Visit Reasons: Cyst on her right knee. Intake Note: Cyst on right knee Steam Trap Man Required: No Allergies No Known Allergies Allergy (Verified 04/24/25 09:42) Tobacco use date assessed: 04/24/25 Fall risk assessment: No Falls in past year Last assessed Fall Risk: 04/24/25 Dental Screening Dental Screen Date: 04/24/25 Did you have a dental visit in the last 12 months?: Yes Did you have a dental problem in the last 6 months where you did not have access to dental care?: No Was dental information given to patient?: Patient has dentist HPI HPI Comments History of Present Illness Details The patient is a 69 y/o female with pmh post herpetic neuralgia, htn, ckd, anxiety/depression, prediabetes, fidel on cpap presenting follow up She has had a recurrent boil on the right knee cap. It did recently develop a head. She then applied pressure to pop it and had a large amount of purulent drainage. At that time it had some redness. the redness has now subsided and it continues to have scant purulence. GI: Following with GI-follows with Dr Culp. Starting about Aug 25 has had loose frequent stools bouts of watery explosive bowel movements. lower abdomen sensitive, gurgly. Worse with any alcohol-even if small amount. She started the BRAT diet, probiotics and Imodium. The stool has become slightly more formed in the past week. No fevers. No blood in the stool. Chronic pain. Post herpetic neuralgia. January 2023 V1. 2 years and 4 months since shingles. On duloxetine. Chronic OA-hips, knees, back Went to the hand surgeon-started PT on the right shoulder. 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 Seeing Dr Castano. Got three cortisone injections in the back. Numbness pain intermittently down to the right shoulder in the right pinky. 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 Right ganglion cyst right knee-stable Anxiety/depression: Continues with therapist Dr Rodríguez but things . Two children -drug issues. CV: on hctz. BP controlled. Sees Dr annually. Contributed to NSAID use. Goes annually Colonoscopy with polypectomy 2014. Double endoscopy scheduled for February 19. FIDEL-cpap. She sees optometry-Dr Hernández ROS see HPI PHYSICAL EXAM: GENERAL: Alert and oriented x 3. NAD EYES: EOMI. Anicteric. HENT: Moist mucous membranes. No scleral icterus. No cervical lymphadenopathy. LUNGS: Clear to auscultation bilaterally. CARDIOVASCULAR: Regular rate and rhythm. No murmur. No JVD. ABDOMEN: Soft, non-tender +bs EXTREMITIES: No edema. Non-tender. SKIN: circular small abcess non fluctuance, not erythematous. Small central opening and scant purulence NEUROLOGIC: No focal neurological deficits. CN II-XII grossly intact PSYCHIATRIC: Cooperative. Appropriate mood and affect [facility] Medical History Major depressive disorder, recurrent, moderate Shingles Acid reflux Hx of mammogram Severe obesity Seasonal allergies Post herpetic neuralgia Obstructive sleep apnea Anxiety Depression Surgical History Hx of colonoscopy History of right hip replacement Hx of endoscopy Family History Mother Cardiac arrest Father Cancer of prostate Sister Multiple sclerosis Arthritis Social History Housing: House Alcohol intake: never Patient Tobacco Use Status: Current everyday Tobacco user Tobacco use type: Cigarette Cigarettes Per Day: 3 Years Smoked: 15 e-Cigarette/Vaping Use: Never Used Use of substances other than those prescribed or required for medical reasons: No service: No 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al status: retired 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 1. Little interest or pleasure in doing things: not at all 2. Feeling down, depressed, or hopeless: not at all 3. Trouble falling or staying asleep, or sleeping too much: not at all 4. Feeling tired or having little energy: not at all 5. Poor appetite or overeating: not at all 6. Feeling bad about yourself - or that you are a failure or have let yourself or your family down: not at all 7. Trouble concentrating on things, such as reading the newspaper or watching television: not at all 8. Moving or speaking so slowly that other people could have noticed. Or the opposite - being so fidgety or restless that you have been moving around a lot more than usual: not at all 9. Thoughts that you would be better off or of hurting yourself in some way: not at all Total score: 0 Source: Developed by Drs. Roly Hamilton, Patty Hadley, Nathaniel Grimes and colleagues, with an educational sarah from [employer]. Thrive Questionnaire Date Thrive assessed: 01/22/25 I am a: Patient What is your living situation today?: I have a steady place to live Within the past 12 months, did the food you bought not last and you didn't have the money to get more?: Never true Within the past 12 months, did you worry whether your food would run out before you got money to buy more?: Never true Do you have trouble paying for medicines?: No Do you have trouble getting transportation to medical appointments?: No Do you have trouble paying your heating and electricity bill?: No Do you have trouble taking care of your child, family member or friend?: No Do you have trouble with day-to-day activities such as bathing, preparing meals, shopping, managing finances, etc.?: No Are you currently unemployed and looking for a job?: No Are you interested in more education?: No Please select the resources that you would like help with: None Currently or been in a relationship where the following occur: No concerns reported THRIVE Score: 0 AUDIT C Alcohol Use Questionnaire (AUDIT-C) 1. How often do you have a drink containing alcohol?: Monthly or less 2. How many drinks containing alcohol do you have on a typical day when you are drinking?: 1 or 2 3. How often do you have six or more drinks on one occasion?: Never Total Score: 1 DARIA-7 AMB Questionnaire DARIA-7 Date DARIA - 7 assessed: 03/28/24 Feeling nervous, anxious, or on edge: 0 = Not at all Not being able to stop or control worryin = Not at all Worrying too much about different things: 0 = Not at all Trouble relaxin = Not at all Being so restless that it is hard to sit still: 0 = Not at all Becoming easily annoyed or irritable: 0 = Not at all Feeling afraid as if something awful might happen: 0 = Not at all Total DARIA-7 score (0-4 normal; 5-9 mild; 10-14 moderate; 15-21 severe): 0 Source: Developed by Drs. Roly Hamilton, Patty Hadley, Nathaniel Grimes and colleagues, with an educational sarah from [employer]. Physical exam (Primary Care) Vital Signs: Last Vital Signs Temp 98.3 F 04/24/25 09:45 Pulse 80 04/24/25 09:45 Resp 14 04/24/25 09:45 BP 108/72 04/24/25 09:45 Pulse Ox 95 04/24/25 09:45 Oxygen Delivery Method Room Air 04/24/25 09:45 BMI result Body Mass Index 32.9 Tobacco/Smoking Status: Tobacco use Status Tobacco use date assessed 04/24/25 04/24/25 09:48 Patient Tobacco Use Status Current everyday Tobacco 04/24/25 09:48 Tobacco use type Cigarette 04/24/25 09:48 e-Cigarette/Vaping Use Never Used 04/24/25 09:48 PHQ-9: PHQ-9 Score PHQ-9: Total score 0 04/24/25 11:50 Thrive Assessment: Date of Thrive Assessment Date Thrive assessed 01/22/25 04/24/25 09:48 Currently or been in a relationship where the following occur: No concerns reported Coding Level of Care Code Est Pt Level 4 (57797) Diagnoses Boil of lower extremity L02.429 Assessment & Plan Assessment & Plan (1) Boil of lower extremity: Code(s): L02.429 - Furuncle of limb, unspecified Category: Medical Plan Boil-this should resolve with doxycycline and warm compresses Advised patient if persistent or worsening can refer to gen surgery. she will call if needed Medications: New doxycycline hyclate 100 mg PO BID 20 tabs 0RF
[2025-04-24 09:45] VITALS: BP 108/72; PULSE 80; RESP 14; TEMP 36.8; O2SAT 95; BMI 32.9
--- OUTSIDE RECORDS SUMMARY | 2025-04-24 10:13 | XMS_ITS | Clinical Summary ---
Author Organization [address] Address [address] [place] [phone] Phone Care Team Providers Care Ethical Hacker Name Role Phone Rosalva Stevens MD Primary Care Provider [phone] Surgical History Surgery Date Site/Laterality Comments NECK SURGERY age 1 PROCEDURE: HISTORICAL NECK SURGERY; COMMENT: Brachial cleft cyst removal HAND SURGERY PROCEDURE: HISTORICAL HAND SURGERY; COMMENT: Trigger finger OTHER SURGICAL HISTORY PROCEDURE: [place] DILATION & CURETTAGE DX&/THER NONOBSTETRIC COLONOSCOPY 04/17/2015 PROCEDURE: HISTORICAL COLONOSCOPY; COMMENT: tics and hyperplastic polyp; repeat in 10 yrs under propofol UPPER GASTROINTESTINAL ENDOSCOPY 04/04/2018 PROCEDURE: [place] UPPER GI ENDOSCOPY PERFORMED; COMMENT: Large paraesophageal [...] 07/25/2025 1:15 PM EDT Office Visit Nephrology [id number] [place] [address] Te Davis MD 100 [facility] 200 [place] [address] Health Maintenance Due Date Last Done Comments [...] 2024 08/15/2021, 01/24/2021, 01/01/2021 Influenza Vaccine (#1) 2025 Breast Cancer Screening 11/27/2026 11/27/19, 11/18/2023, [...] is recommended in 1 year. Mammo Location: [facility], [address] [place] [address], [address], . -------- FINAL REPORT -------- Dictated By: Sabi Sampson Dictated Date: 11/27/2024 11:58 ET Assigned Physician: Sabi Sampson Reviewed and Electronically Signed By: Sabi Sampson Signed Date: 11/27/2024 12:00 ET Workstation ID: [id number] Transcribed By: Self Edit Transcribed Date: 11/27/2024 [...] is recommended in 1 year. Mammo Location: [facility], [address] [place] [address], [address], . -------- FINAL REPORT -------- Dictated By: Sabi Sampson Dictated Date: 11/27/2024 11:58 ET Assigned Physician: Sabi Sampson Reviewed and Electronically Signed By: Sabi Sampson Signed Date: 11/27/2024 12:00 ET Workstation ID: [id number] Transcribed By: Self Edit Transcribed Date: 11/27/2024 [...] classified as having normal bone density. The [facility] Department of Internal Medicine recommends using [...] beclassified as having normal bone density. The [facility] Department of Internal Medicine recommendsusing National [...] Recently Relevant to Health Maintenance Insurance MEDICARE [facility] Care Teams Ethical Hacker Relationship Specialty Start Date End Date Rosalva Stevens MD [address] [place] [phone] PCP - General 07/09/15
== END 2025-04-24 10:26 | disposition home or self-care (01) ==
LOC: HO.HMCFM 09:32
PROVIDERS: PCP Internal Medicine; Visit Provider Internal Medicine
DX: L02.429 Furuncle of limb, unspecified (principal)

== ENCOUNTER 2025-04-24 10:08 | Outpatient (REF) | payer MEDICARE, SELFPAY ==
[2025-04-24 11:31] LABS: MANUAL DIFF FLAG NO
[2025-04-24 11:37] LABS: Hematocrit 36.5 % (37.0-47.0); Hemoglobin 12.5 g/dl (12.0-16.0); Imm Gran Abs Auto 0.03 X10*3/uL (0.00-0.03); Imm Gran Pct Auto 0.5 % (0.0-0.4); Lymphocytes Absolute Auto 1.4 X10*3/uL (1.2-4.9); Mean Corpuscular HGB Conc 34.2 g/dl (31.0-35.0); Mean Corpuscular Hemoglobin 31.7 pg (27.0-33.0); Mean Corpuscular Volume 92.6 fL (80.0-98.0); NRBC Abs Auto 0.000 X10*3/uL (0.0-0.012); NRBC Pct Auto 0.0 /100WBC (0.0-0.2); Platelet Count 280 X10*3/uL (160-400); Red Blood Count 3.94 X10*6/uL (4.20-5.50); White Blood Count 6.5 X10*3/uL (4.8-10.8)
[2025-04-24 12:25] LABS: Alanine Aminotransferase 24 U/L (0-31); Albumin Level 4.3 g/dL (3.5-5.0); Alkaline Phosphatase 68 U/L (39-117); Anion Gap 14 (12-20); Aspartate Amino Transferase 30 U/L (5-31); Blood Urea Nitrogen 17 mg/dL (9-16); Calcium 9.9 mg/dL (8.4-10.2); Carbon Dioxide 26 mmol/L (22-29); Chloride 103 mmol/L (96-108); Estimated Glomerular Filt Rate > 60; Potassium 3.5 mmol/L (3.3-5.1); Sodium 139 mmol/L (135-145); Total Protein 7.5 g/dL (6.5-8.0)
[2025-04-24 12:55] LABS: Folate 10.2 ng/mL (> or = 4.0); Vitamin B12 803 pg/mL (200-900)
[2025-04-30 01:19] LABS: Vit B3 - Nicotinic Acid <20 ng/mL (see note)
== END 2025-04-24 10:09 | disposition home or self-care (01) ==
LOC: HO.WFDLDS 10:08
PROVIDERS: Visit Provider Internal Medicine Gastroenterology
DX: L02.425 Furuncle of right lower limb (principal); I12.9 Hypertensive chronic kidney disease with stage 1 through stage 4 chronic kidney disease, or unspecified chronic kidney disease; N18.9 Chronic kidney disease, unspecified; G47.33 Obstructive sleep apnea (adult) (pediatric); B02.29 Other postherpetic nervous system involvement; M16.0 Bilateral primary osteoarthritis of hip; M17.0 Bilateral primary osteoarthritis of knee; M19.011 Primary osteoarthritis, right shoulder; F41.8 Other specified anxiety disorders; Z79.899 Other long term (current) drug therapy; Z99.89 Dependence on other enabling machines and devices; Z13.30 Encounter for screening examination for mental health and behavioral disorders, unspecified; K75.81 Nonalcoholic steatohepatitis (NASH); R79.89 Other specified abnormal findings of blood chemistry
CPT/HCPCS: 36415; 80053; 82607; 82746; 84207; 84425; 84591; 85025; 96127; 99212

== ENCOUNTER 2025-06-29 11:13 | Outpatient (REF) | payer MEDICARE, SELFPAY ==
--- NOTE | ~2025-06-29 | US_ITS ---
EXAMINATION: US ABDOMEN COMPLETE WITH LIVER ELASTOGRAPHY HISTORY: ELEVATED LFTS TECHNIQUE: Real-time grayscale ultrasound imaging of the abdomen was performed and images were reviewed. COMPARISON: Comparison is made with the prior examination dated 01/04/2025. FINDINGS: Liver: The right lobe of the liver measures 16.8 cm in size. The left lobe of the liver measures 11.1 cm in size. The liver demonstrates increased echotexture, consistent with steatosis. No focal mass or intrahepatic biliary ductal dilatation is identified. There is normal hepatopedal flow in the portal vein. Ultrasound elastography of the liver was performed with 10 separate measurements of the liver parenchyma with the patient in the supine position. Measurements were obtained approximately 2 cm below Viola's capsule and perpendicular to the capsule. The median shear wave velocity is 1.92 m/s (previously 1.55 m/s). The interquartile range/median (IQR/median) is 0.11. Gallbladder and biliary tree: The gallbladder is unremarkable, without evidence of calculi, wall thickening, or pericholecystic fluid. There is no sonographic Diaz sign. The common bile duct is normal in caliber measuring 2 mm. Kidneys: The right kidney measures 10.8 cm in length. The left kidney measures 9.9 cm in length. The kidneys are unremarkable, without evidence of masses, hydronephrosis, or calculi. Pancreas: The pancreatic head, neck, and body are unremarkable. The pancreatic tail is obscured by bowel gas. Spleen: The spleen is normal in size and contour, measuring 7.7 cm in length. Abdominal aorta and inferior vena cava: The visualized portions of the abdominal aorta and inferior vena cava are normal in caliber. There is no free fluid in the abdomen. US/US abdomen comp w elastography IMPRESSION: Hepatomegaly and hepatic steatosis. The median shear wave velocity in the liver is 1.92 m/s, corresponding to a median liver stiffness of 11.35 kPa. The IQR/median value is 0.11. This is indicative of a quality data set. Findings are indicative of a high elastography value suggestive of compensated advanced chronic liver disease. There has been a significant change from the prior study. REFERENCE: Society of Radiologists in Ultrasound Liver Stiffness Thresholds (2020): LIVER STIFFNESS THRESHOLDS: *Shear wave velocity less than 1.3 m/s (Liver Stiffness equal or less than 5 kPa): High probability of being normal. *Shear wave velocity less than 1.7 m/s (Liver Stiffness less than 9 kPa): In the absence of other known clinical signs, rules out compensated advanced chronic liver disease. *Shear wave velocity between 1.7-2.1 m/s (Liver Stiffness 9-13 kPa): Suggestive of compensated advanced chronic liver disease but need further test for confirmation. *Shear wave velocity between 2.1-2.4 m/s (Liver Stiffness 13-17 kPa): Rules in compensated advanced chronic liver disease. *Shear wave velocity greater than 2.4 m/s (Liver Stiffness over 17 kPa): Suggestive of clinically significant portal hypertension. QUALITY OF DATA SET: *IQR/Median value equal or less than 0.15 implies a quality data set. *IQR/Median value over 0.15 implies a poor quality data set. SIGNIFICANT CHANGE FROM PRIOR EXAM: Significant change if liver stiffness measurement is 10% or greater from prior exam. OTHER CONSIDERATIONS: The stage of liver fibrosis may be overestimated in the setting of acute hepatitis, liver inflammation, elevated liver function tests, hepatic vascular congestion, obstructive cholestasis, non-fasting state, and infiltrative diseases such as amyloidosis and lymphoma. In some patients with NAFLD, the liver stiffness thresholds for compensated advanced chronic liver disease may be lower. In causes other than viral hepatitis and NAFLD, liver stiffness thresholds are not well established. Electronically signed by: Roly Torres MD 06/29/2025 12:12 PM EDT
--- NOTE | ~2025-06-29 | XR_ITS ---
EXAMINATION: XR CERVICAL SPINE 4-5 VIEWS HISTORY: M54.2 - Cervicalgia COMPARISON: There are no prior studies available for comparison. FINDINGS: AP, lateral, bilateral oblique, and open-mouth odontoid views of the cervical spine are submitted. Osseous mineralization is normal. Seven cervical vertebral bodies are identified maintaining normal height and alignment without evidence of fracture or subluxation. There is moderate to severe degenerative disc disease with disc space narrowing and osteophyte formation. There is narrowing of the right C4-5 and C5-6 neural foramen and the left C3-4, C4-5, and C5-6 neural foramen secondary to facet osteoarthritis and uncovertebral joint hypertrophy. The odontoid and lateral masses of C1 are intact. Calcifications in the neck bilaterally are likely related to the internal carotid arteries. XR/XR cervical spine 4V IMPRESSION: Degenerative changes of the cervical spine as described. Electronically signed by: Roly Torres MD 06/29/2025 12:34 PM EDT
--- OUTSIDE RECORDS SUMMARY | 2025-06-29 12:20 | XMS_ITS | Encounter Summary ---
Author Organization [facility] Address [address] [place] [phone] Phone Care Team Providers Care Site Manager Name Role Phone Rosalva Blakely MD Primary Care Provider [phone] Encounter Details Date Type Department Care Team (Late st Contact Info) Description 07/18/2024 Ancillary Orders [facility], X-Ray - [facility] [address] [place] [address] Rosalva Blakely MD [address] [place] [phone] Cervical radiculopathy (Primary Dx) Social History Tobacco Use Types Packs/Day Years Used Date Smoking Tobacco: Some Days Cigarettes Smokeless Tobacco: Never Alcohol Use Standard Drinks/Week Comments Yes 0 (1 standard drink = 0.6 oz pur e alcohol) 2-5 per week Education Answer Date Recorded Are you interested in more education? Not on jeffrey e 02/19/2023 Are you concerned about learning? Not on file 02/19/2023 No 02/19/2023 No 02/19/2023 Digital Access Answer Date Recorded No 03/20/2023 No 03/20/2023 No 03/20/2023 Reliable internet access at home? Not on file 03/20/2023 Device with a working camera? Not on file Comments Unknown Sex and Gender Information Value Date Recorded Sex Assigned at Female 12/12/2017 8:52 AM EST Legal Sex Female 9:57 PM EDT Gender Identity Female 12/12/2017 8:52 AM EST Sexual Orientation Straight 12/12/2017 8: 52 AM EST documented as of this encounter Plan of Treatment Not on file documented as of this encounter Results * XR CERVICAL SPINE 2-3 VIEWS (07/18/2024 2:15 PM EDT) Anatomical Region Laterality Modality C-spine Computed Radiogr aphy 07/18/2024 9:24 PM EDT Impressions 07/18/2024 9:25 PM EDT Degenerative changes. Narrative 07/18/2024 9:25 PM EDT XR CERVICAL SPINE 2-3 VIEWS Referring clinician's provided indication for this examination in Epic: Pain COMPARISON: FINDINGS: Straightening of cervical lordosis. Mild anterolisthesis of C3 on C4. C4-C7 degenerative disc disease with loss of disc height. Multilevel facet arthropathy. The open-mouth view reveals an intact dens and normal alignment of the C1 lateral masses on C2. Procedure Note Jay Watkins MD - 07/18/2024 XR CERVICAL SPINE 2-3 VIEWS Referring clinician's provided indication for this examination in Epic:Pain COMPARISON: FINDINGS: Straightening of cervical lordosis. Mild anterolisthesis of C3 on C4.C4-C7 degenerative disc disease with loss of disc height. Multilevel facetarthropathy. The open-mouth view reveals an intact dens and normalalignment of the C1 lateral masses on C2. IMPRESSION: Degenerative changes. Result [facility] Rosalva Blakely MD IMG XR SPINE Final Result documented in this encounter Visit Diagnoses Diagnosis Cervical radiculopathy- Primary Brachial neuritis or radiculitis nos Cervical radiculopathy Brachial neuritis or radiculitis nos documented in this encounter Care Teams Site Manager Relationship Specialty Start Date End Date Rosalva Blakely MD PCP - General 08/09/17 documented as of this encounter Additional Source Comments The information contained in this document represents components of the legal health record. It is not the complete legal health record.[facility]
--- OUTSIDE RECORDS SUMMARY | 2025-06-29 12:20 | XMS_ITS | Encounter Summary ---
Author Organization [facility] Address [address] [place] [address] Phone Care Team Providers Care Talent Development Coordinator Name Role Phone Rosalva Blakely MD Primary Care Provider Encounter Details Date Type Department Care Team (Late st Contact Info) Description 01/07/2018 Procedure [facility], Ct Scan - [address] [phone] Social History Tobacco Use Types Packs/Day Years Used Date Smoking Tobacco: Some Days Cigarettes Smokeless Tobacco: Never Alcohol Use Standard Drinks/Week Comments Yes 0 (1 standard drink = 0.6 oz pur e alcohol) 2-5 per week Comments Unknown Sex and Gender Information Value Date Recorded Sex Assigned at Female 12/12/2017 8:52 AM EST Legal Sex Female 9:57 PM EDT Gender Identity Female 12/12/2017 8:52 AM EST Sexual Orientation Straight 12/12/2017 8: 52 AM EST documented as of this encounter Plan of Treatment Not on file documented as of this encounter Visit Diagnoses Not on filedocumented in this encounter Care Teams Talent Development Coordinator Relationship Specialty Start Date End Date Rosalva Blakely MD PCP - General 08/09/17 documented as of this encounter Additional Source Comments The information contained in this document represents components of the legal health record. It is not the complete legal health record.[facility]
--- OUTSIDE RECORDS SUMMARY | 2025-06-29 12:20 | XMS_ITS | Clinical Summary ---
Author Organization [address] Address [address] [place] [address] Phone Care Team Providers Care Communications Department Chairperson Name Role Phone Rosalva Stevens MD Primary Care Provider [phone] Surgical History Surgery Date Site/Laterality Comments NECK SURGERY age 1 PROCEDURE: HISTORICAL NECK SURGERY; COMMENT: Brachial cleft cyst removal HAND SURGERY PROCEDURE: HISTORICAL HAND SURGERY; COMMENT: Trigger finger OTHER SURGICAL HISTORY PROCEDURE: [place] DILATION & CURETTAGE DX&/THER NONOBSTETRIC COLONOSCOPY 04/17/2015 PROCEDURE: HISTORICAL COLONOSCOPY; COMMENT: tics and hyperplastic polyp; repeat in 10 yrs under propofol UPPER GASTROINTESTINAL ENDOSCOPY 04/04/2018 PROCEDURE: [place] UPPER GI ENDOSCOPY PERFORMED; COMMENT: Large paraesophageal [...] 07/25/2025 1:15 PM EDT Office Visit Nephrology [address] [place] [address] Te Davis MD 100 [facility] 200 [place] [address] Health Maintenance Due Date Last Done Comments Pneumococcal Vaccine: 50+ Years (1 of 1 - PCV) 12/24/2003 Zoster Vaccines (1 of 2) 12/24/2003 DTaP,Tdap,and Td Vaccines (3 - Td or Tdap) 09/06/2022 09/06/2012, 06/18/2003 Cholesterol Screening (Lipid Panel) 10/03/2022 Colorectal Cancer Screening: Colonoscopy 10/03/2022 Falls Risk Assessment 10/03/2022 Hepatitis C Screening 10/03/2022 Medicare Annual Wellness Visit 10/03/2022 Social Influencers of Health Screening 10/03/2022 Hypertension/CHF/CAD Annual BMP Blood Test 10/09/2022 Depression Screening 10/25/2024 COVID-19 Vaccine ( season) 2025 08/15/2021, 01/24/2021, 01/01/2021 Influenza Vaccine (#1) 2025 [...] is recommended in 1 year. Mammo Location: [facility], [address] [place] [address], [address], . -------- FINAL REPORT -------- Dictated By: Sabi Sampson Dictated Date: 11/27/2024 11:58 ET Assigned Physician: Sabi Sampson Reviewed and Electronically Signed By: Sabi Sampson Signed Date: 11/27/2024 12:00 ET Workstation ID: [id number] Transcribed By: Self Edit Transcribed Date: 11/27/2024 [...] is recommended in 1 year. Mammo Location: [facility], [address] [place] [address], [address], . -------- FINAL REPORT -------- Dictated By: Sabi Sampson Dictated Date: 11/27/2024 11:58 ET Assigned Physician: Sabi Sampson Reviewed and Electronically Signed By: Sabi Sampson Signed Date: 11/27/2024 12:00 ET Workstation ID: [id number] Transcribed By: Self Edit Transcribed Date: 11/27/2024 [...] classified as having normal bone density. The [facility] Department of Internal Medicine recommends using [...] beclassified as having normal bone density. The [facility] Department of Internal Medicine recommendsusing National [...] Recently Relevant to Health Maintenance Insurance MEDICARE [facility] Care Teams Communications Department Chairperson Relationship Specialty Start Date End Date Rosalva Stevens MD [address] [place] [phone] PCP - General 07/09/15
--- OUTSIDE RECORDS SUMMARY | 2025-06-29 12:20 | XMS_ITS | Clinical Summary ---
Author Organization [facility] Address [address] [facility] [address] [place] [address] Phone Care Team Providers Care Packer Denture Name Role Phone Rosalva Blakely MD Primary Care Provider Allergies No known active allergies Medications lisinopril (PRINIVIL,ZESTR IL) 40 MG tablet Take 40 mg by mouth daily. Active ibuprofen (ADVIL,MOTRIN) 800 MG tablet Take 800 mg by mouth every 6 (six) hours as needed. Active hydroCHLOROthia zide (HYDRODIURIL) 25 MG tablet Take 25 mg by mouth daily. Active aspirin 81 MG EC tablet Take 81 mg by mouth daily. Active calcium carbonate (OS-RAMU) 1,250 mg (500 mg elemental) tablet Take 1 tablet by mouth daily. Active hydrOXYzine (ATARAX) 25 MG tablet Take 25 mg by mouth. Active traZODone (DESYREL) 50 MG tablet Take 50 mg by mouth nightly. Active amoxicillin (AMOXIL) 500 MG tablet 4 TABLET BY MOUTH ONCE, NEEDED FOR DENTAL PROCEDURES 2 Active TRINTELLIX 20 mg Tab Take 20 mg by mouth daily. 2 Active gabapentin (NEURONTIN) 100 MG capsule 2 Active valACYclovir (VALTREX) 1000 MG tablet 2 Active traMADoL (ULTRAM) 50 mg tablet 2 Active predniSONE (DELTASONE) 20 MG tablet 2 Active clonazePAM (KLONOPIN) 0.5 MG tablet 2 Active Active Problems No known active problems Social History Tobacco Use Types Packs/Day Years [...] Orientation Straight 12/12/2017 8: 52 AM EST Last Filed Vital Signs Vital Sign Reading Time Taken Comments Blood Pressure 120/78 02/14/2022 1:50 PM EDT Pulse 68 02/14/2022 1:50 PM EDT Temperature 37 C (98.6 F) 02/14/2022 1:50 PM EDT Respiratory Rate 16 02/14/2022 1:50 PM EDT Oxygen Saturation 98% 02/14/2022 1:50 PM EDT Inhaled Oxygen Concentration - - Weight 66.7 kg (147 lb) 02/14/2022 1:50 PM EDT Height 157.5 cm (5' 2 ) 02/14/2022 1:50 PM EDT Body Mass Index 26.89 02/14/2022 1:50 PM EDT Plan of Treatment Health Maintenance Due Date Last Done Comments LIPID PANEL 1953 DEPRESSION SCREENING 1965 SMOKING Hx and SMOKELESS TOBACCO SCREENING 1966 HEPATITIS C SCREENING 12/24/1971 PNEUMOCOCCAL VACCINES (50+ years) (1 of 2 - PCV) 1972 MAMMOGRAM 1993 COLOGUARD 1998 COLONOSCOPY 1998 COLORECTAL CANCER SCREENING 1998 FIT TEST 1998 FOBT 1998 SIGMOIDOSCOPY 1998 VIRTUAL COLONOSCOPY 1998 ZOSTER VACCINES (1 of 2) 12/24/2003 OSTEOPOROSIS SCREENING INITI AL (ONE-TIME) 2018 CREATININE LEVEL 01/07/2019 01/07/2018 POTASSIUM LEVEL 01/07/2019 01/07/2018 Adult Td,Tdap Booster 09/06/2022 09/06/2012 , 06/18/2003 INFLUENZA VACCINE (#1) 2025 COVID-19 VACCINE (4 - 2024-2 6 season) 2025 08/15/2021, 01/24/2021, 01/01/2021 RSV VACCINE (1 - 1-dose 75+ series) 2028 HEPATITIS A VACCINES Aged Out No long er eligible based on patient's age to complete this topic HIB VACCINES Aged Out No longer eligi ble based on patient's age to complete this topic MENINGOCOCCAL VACCINES (ACWY) Aged Out No longer eligible based on patient's age to complete this topic MENINGOCOCCAL VACCINES (B) Aged Out N o longer eligible based on patient's age to complete this topic Medical Devices Not on file Procedures Procedure Name Priority Date/Time Associated Diagnosis Comments BASIC METABOLIC PANEL STAT 01/07/2018 12:21 PM EDT from Last 3 Months or Most Recently Relevant to Health Maintenance Results * (ABNORMAL) Basic metabolic panel (01/07/2018 12:21 PM EDT) SODIUM 141 133 - 146 mmol/L [facility] CHLORIDE 104 96 - 108 mmol/L [facility] POTASSIUM 3.7 3.3 - 5.1 mmol/L [facility] CO2 27 21 - 35 mmol/L [facility] BUN 18 6 - 19 mg/dL [facility] CREATININE 0.70 0.5 - 1.5 mg/dL [facility] GLUCOSE 101(H) 70 - 99 mg/dL [facility] CALCIUM 9.4 8.4 - 10.3 mg/dL [facility] EGFR 92 >59 mL/min/1.7 3m2 [facility] Comment:If patient is black, multiply result by 1.159. The eGFR calculation has changed from the MDRD equation to the CKD-EPI equation as of December 28, 2017. ANION GAP 14 10 - 20 mmol/L [facility] Blood 01/07/2018 12:2 1 PM EDT 01/07/2018 12:31 PM EDT us Angela Ny PA-C LAB BLOOD ORDERABLES Final Res ult [facility] [address] [place] [address] from Last 3 Months or Most Recently Relevant to Health Maintenance Insurance [employer] MEDEX SUPPLEMENT MEDICARE PART A & B [employer] MEDEX SUPPLEMENT MEDICARE PART A & B [employer] MEDEX SUPPLEMENT MEDICARE PART A & B [employer] MEDEX SUPPLEMENT MEDICARE PART A & B MEDEX SUPPLEMENT MEDICARE PART A & B [employer] MEDEX SUPPLEMENT MEDICARE PART A & B [employer] MEDEX SUPPLEMENT MEDICARE PART A & B [employer] MEDEX SUPPLEMENT MEDICARE PART A & B [employer] MEDEX SUPPLEMENT MEDICARE PART A & B Care Teams Packer Denture Relationship Specialty Start Date End Date Rosalva Blakely MD PCP - General 08/09/17 Additional Source Comments The information contained in this document represents components of the legal health record. It is not the complete legal health record.[facility]
== END 2025-06-29 11:14 | disposition home or self-care (01) ==
LOC: HO.US 11:13
PROVIDERS: PCP Internal Medicine; Visit Provider Internal Medicine Gastroenterology
DX: M54.12 Radiculopathy, cervical region (principal); M54.2 Cervicalgia; R79.89 Other specified abnormal findings of blood chemistry
CPT/HCPCS: 72050; 76700; 76981

== ENCOUNTER → 2025-06-29 11:15 | Outpatient (BNV) | payer MEDICARE, SELFPAY | PROVIDERS: PCP Internal Medicine; Visit Provider Radiology Diagnostic Radiology | DX: K76.0 Fatty (change of) liver, not elsewhere classified (principal); M47.812 Spondylosis without myelopathy or radiculopathy, cervical region | CPT/HCPCS: 72050; 76700 ==

== ENCOUNTER 2025-07-30 09:58 | Outpatient (AMB) | payer MEDICARE, SELFPAY ==
--- OUTSIDE RECORDS SUMMARY | 2025-07-25 13:15 | XMS_ITS | Encounter Summary ---
Author Organization [facility] Address [address] [place] [address] Care Team Providers Care Fund Development Manager Name Role Phone Rosalva Stevens MD Primary Care Provider [phone] Reason for Visit * Reason Comments Chronic Kidney Disease Encounter Details Date Type Department Care Team ([facility] Contact Info) Description 07/25/2025 1:15 PM EDT Office Visit Nephrology [address] [phone] Te Davis MD [address] [facility] [address] [place] [address] CKD (chronic kidney disease) stage 2, GFR 60-89 ml/min (Primary Dx); HTN (hypertension), benign Social History Tobacco Use Types Packs/Day Years [...] on file documented as of this encounter Last Filed Vital Signs Vital Sign Reading Time Taken Comments Blood Pressure 111/64 07/25/2025 1:12 PM EDT Pulse - - Temperature - - Respiratory Rate - - Oxygen Saturation - - Inhaled Oxygen Concentration - - Weight 78.8 kg (173 lb 12.8 oz) 07/25/2025 1:12 PM EDT Height - - Body Mass Index - - documented in this encounter Progress Notes * Te Davis MD - 07/25/2025 1:15 PM EDT Renal follow up note : Zoë Parks is a 69 y.o. year old female seen today for f/u regarding CKD HPI: Patient said that she is feeling well No urinary symptoms No chest pain or shortness of breath No urinary symptoms She has not lost weight HOME MEDICATIONS: Home Medications cholecalciferol (VITAMIN D-3) 50 mcg (2,000 unit) tablet Take 1 tablet (2,000 Units total) by mouth1 (one) time each day. clonazePAM (KlonoPIN) 0.5 mg tablet Take 1 tablet (0.5 mg total) by mouth 2 (two) times a day. Max Daily Amount: 1 mg DULoxetine (CYMBALTA) [address] capsule Take 1 capsule (60 mg total) by mouth 1 (one) time each day.Do not crush or chew. hydroCHLOROthiazide (HYDRODIURIL) 25 mg tablet Take 1 tablet (25 mg total) by mouth 1 (one) time each day. lactobacillus acidoph-l.bulgar 100 million cell granules in packet Take 1 packet by mouth. lisinopriL (PRINIVIL,ZESTRIL) 20 mg tablet Take 1 tablet (20 mg total) by mouth 1 (one) time each day. multivit-minerals/folic acid (CENTRUM ADULTS ORAL) Take by mouth. omeprazole (PriLOSEC) [address] capsule Take 1 capsule (20 mg total) by mouth 1 (one) time each day.Do not crush or chew. ACTIVE MEDICATIONS: MEDSSCHEDULED[1] MEDSPRN[2] MEDSCONTINUOUS[3] Current medications reviewed. ALLERGY: Current Allergies[4] PHYSICAL EXAM: Visit Vitals BP 111/64 Wt 78.8 kg (173 lb 12.8 oz) OB Status Postmenopausal Smoking Status Former APPEARANCE: Alert and in no acute distress par EYES: PERRLA, conjunctiva and sclera normal. EARS: External ears normal. Canals clear. NOSE/SINUS: Nares normal. Septum midline. Mucosa normal. No drainage or sinus tenderness. THROAT: no erythema or exudates NECK: Neck supple, no adenopathy, thyroid symmetric and of normal size HEART: RRR with normal S1 and S2 ,no murmurs, no gallops, no JVD appreciated LUNG: clear to auscultation ABDOMEN: Bowel sounds normoactive, no bruits, soft, non-tender, without organomegaly or palpable masses EXTREMITIES: Extremities warm and well perfused without clubbing, cyanosis, or edema NEURO: Awake, alert and oriented x 3, no focal neurological deficit, with symmetrical reflexes SKIN: Skin color, texture, turgor normal. No rashes or lesions. LABS: Results from last 7 days Lab Units 07/24/25 1148 CREATININE mg/dL 1.01 BUN mg/dL 22 SODIUM mmol/L 134 POTASSIUM mmol/L 3.5 CHLORIDE mmol/L 98 CO2 mmol/L 28 Phosphorus Date Value Ref Range Status 07/24/2025 3.2 2.5 - 4.5 mg/dL Final Urine microalbumin to creatinine ratio was normal last 10 ASSESSMENT 1. CKD (chronic kidney disease) stage 2, GFR 60-89 ml/min 2. 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 Patient advised to avoid smoking Continue a low-salt diet Patient has been advised to avoid using NSAID/Garcia 2 inhibitors and have taken off ibuprofen, medication list Patient has been advised to keep herself hydrated Continue same dose of PAOLA inhibitor Urine protein excretion is within normal limits There is no reason to believe patient has acute GN/interstitial disease in the absence of proteinuria Continue vitamin D She will be again seen in the office in 1 year for follow-up [1] [2] [3] [4] No Known Allergies documented in this encounter Plan of Treatment Upcoming Encounters Date Type Department Care Team (Late st Contact Info) Description 07/31/2026 1:15 PM EDT Office Visit Nephrology [address] [phone] Te Davis MD [address] [place] [address] Scheduled Orders Name Type Priority Associated Diagnoses Orde r Schedule BUN Lab Routine CKD (chronic kidney disease) stage 2, GFR 60-89 ml/min HTN (hypertension), benign Expected: 05/21/2026, Expires: 07/25/2026 Creatinine Lab Routine CKD (chronic kidney disease) stage 2, GFR 60-89 ml/min HTN (hypertension), benign Expected: 05/21/2026, Expires: 07/25/2026 Electrolyte panel Lab Routine CKD (chronic kidney disease) stage 2, GFR 60-89 ml/min HTN (hypertension), benign Expected: 05/21/2026, Expires: 07/25/2026 Protein and creatinine with ratio, urine Lab Routine CKD (chronic kidney disease) stage 2, GFR 60-89 ml/min HTN (hypertension), benign Expected: 05/21/2026, Expires: 07/25/2026 documented as of this encounter Visit Diagnoses Diagnosis CKD (chronic kidney disease) stage 2, GFR 60-89 ml/min- Primary Chronic kidney disease, Stage II (mild) HTN (hypertension), benign Essential hypertension, benign documented in this encounter Historical Medications * This list may reflect changes made after this encounter. lactobacillus acidoph-l.bulgar 100 million cell granules in packet Take 1 packet by mouth. multivit-minerals /folic acid (CENTRUM ADULTS ORAL) Take by mouth. omeprazole (PriLOSEC) [address] capsule Take 1 capsule (20 mg total) by mouth 1 (one) time each day. Do not crush or chew. DULoxetine (CYMBALTA) [address] capsule Take 1 capsule (60 mg total) by mouth 1 (one) time each day. Do not crush or chew. cholecalciferol (VITAMIN D-3) 50 mcg (2,000 unit) tablet Take 1 tablet (2,000 Units total) by mouth 1 (one) time each day. clonazePAM (KlonoPIN) 0.5 mg tablet Take 1 tablet (0.5 mg total) by mouth 2 (two) times a day. Max Daily Amount: 1 mg hydroCHLOROthiazi de (HYDRODIURIL) 25 mg tablet Take 1 tablet (25 mg total) by mouth 1 (one) time each day. lisinopriL (PRINIVIL,ZESTRIL ) 20 mg tablet Take 1 tablet (20 mg total) by mouth 1 (one) time each day. added in this encounter Care Teams Fund Development Manager Relationship Specialty Start Date End Date Rosalva Stevens MD [address] [place] [address] PCP - General 07/09/15 documented as of this encounter
--- NOTE | 2025-07-30 10:09 | MHC.PC.OV ---
Vital Signs 07/30/25 10:15 Height 5 ft 1 in Weight 173 lb BMI 32.7 BP 110/76 Blood Pressure Location Rt brachial Position Sitting Respiration 16 Pulse 68 Pulse Source Pulse Oximeter Intake Visit Reasons: 6 mos follow up Intake Note: Six month follow up Wildlife Rehabilitator Required: No Allergies No Known Allergies Allergy (Verified 07/30/25 10:11) Tobacco use date assessed: 07/30/25 Fall risk assessment: No Falls in past year Last assessed Fall Risk: 07/30/25 Dental Screening Dental Screen Date: 04/24/25 HPI HPI Comments History of Present Illness Details The patient is a 69 y/o female with pmh post herpetic neuralgia, htn, ckd, anxiety/depression, prediabetes, fidel on cpap presenting follow up GI: Following with GI-C Dr Culp. Starting about Aug 25 has had loose frequent stools bouts of watery explosive bowel movements. lower abdomen sensitive, gurgly. Worse with any alcohol-even if small amount. She started the BRAT diet, probiotics and Imodium. The stool has become slightly more formed in the past week. No fevers. No blood in the stool. Chronic pain. Post herpetic neuralgia. January 2023 V1. 3 years since shingles. On duloxetine. Chronic OA-hips, knees, back Went to the hand surgeon-started PT on the right shoulder. 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 Previously seen Dr Castano. Got three cortisone injections in the back. Numbness pain intermittently down to the right shoulder pain-Dr Dominguez. Anxiety/depression: Continues with therapist Dr Rodríguez. Two children -drug issues. CV: on hctz, lisinopril. BP controlled. Sees nephrology annually. Contributed to NSAID use. Colonoscopy with polypectomy 2014. Double endoscopy 01/2025-poor prep. Due for colonoscopy in Sep 2025. FIDEL-finally in receipt of her new cpap. She sees optometry-Dr Hernández Mammo: ROS see HPI PHYSICAL EXAM: GENERAL: Alert and oriented x 3. NAD EYES: EOMI. Anicteric. HENT: Moist mucous membranes. No scleral icterus. No cervical lymphadenopathy. LUNGS: Clear to auscultation bilaterally. CARDIOVASCULAR: Regular rate and rhythm. No murmur. No JVD. ABDOMEN: Soft, non-tender +bs EXTREMITIES: No edema. Non-tender. SKIN: Warm, dry NEUROLOGIC: No focal neurological deficits. CN II-XII grossly intact PSYCHIATRIC: Cooperative. Appropriate mood and affect [facility] Medical History Major depressive disorder, recurrent, moderate Shingles Acid reflux Hx of mammogram Severe obesity Seasonal allergies Post herpetic neuralgia Obstructive sleep apnea Anxiety Depression Surgical History Hx of colonoscopy History of right hip replacement Hx of endoscopy Family History Mother Cardiac arrest Father Cancer of prostate Sister Multiple sclerosis Arthritis Social History (Updated 07/30/25 @ 10:19 by Herlinda Cordoba CMA) Housing: House Alcohol intake: current Patient Tobacco Use Status: Current everyday Tobacco user Tobacco use type: Cigarette Cigarettes Per Day: 3 Years Smoked: 15 e-Cigarette/Vaping Use: Never Used service: No 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al status: retired 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 Cognitive needs: No Hearing needs: No Vision needs: No Questionnaire Thrive Questionnaire Date Thrive assessed: 04/24/25 I am a: Patient What is your living situation today?: I have a steady place to live Within the past 12 months, did the food you bought not last and you didn't have the money to get more?: Never true Within the past 12 months, did you worry whether your food would run out before you got money to buy more?: Never true Do you have trouble paying for medicines?: No Do you have trouble getting transportation to medical appointments?: No Do you have trouble paying your heating and electricity bill?: No Do you have trouble taking care of your child, family member or friend?: No Do you have trouble with day-to-day activities such as bathing, preparing meals, shopping, managing finances, etc.?: No Are you currently unemployed and looking for a job?: No Are you interested in more education?: No Please select the resources that you would like help with: None Currently or been in a relationship where the following occur: No concerns reported THRIVE Score: 0 AUDIT C Alcohol Use Questionnaire (AUDIT-C) 1. How often do you have a drink containing alcohol?: Monthly or less 2. How many drinks containing alcohol do you have on a typical day when you are drinking?: 1 or 2 3. How often do you have six or more drinks on one occasion?: Never Total Score: 1 DARIA-7 AMB Questionnaire DARIA-7 Date DARIA - 7 assessed: 03/28/24 Source: Developed by Drs. Roly Hamilton, Patty Hadley, Nathaniel Grimes and colleagues, with an educational sarah from [employer]. Physical exam (Primary Care) Vital Signs: Last Vital Signs Pulse 68 07/30/25 10:15 Resp 16 07/30/25 10:15 BP 110/76 07/30/25 10:15 BMI result Body Mass Index 32.7 Tobacco/Smoking Status: Tobacco use Status Tobacco use date assessed 07/30/25 07/30/25 10:19 Patient Tobacco Use Status Current everyday Tobacco 07/30/25 10:19 Tobacco use type Cigarette 07/30/25 10:19 e-Cigarette/Vaping Use Never Used 07/30/25 10:19 Thrive Assessment: Date of Thrive Assessment Date Thrive assessed 04/24/25 07/30/25 10:11 Currently or been in a relationship where the following occur: No concerns reported Coding Level of Care Code Est Pt Level 4 (41376) Diagnoses Primary hypertension I10 Hypertension type: primary hypertension Major depressive disorder, recurrent, in remission F33.40 Post herpetic neuralgia B02.29 Obstructive sleep apnea G47.33 Assessment & Plan Assessment & Plan (1) Hypertension: Code(s): I10 - Essential (primary) hypertension Category: Medical Qualifiers: Hypertension type: primary hypertension Qualified Code(s): I10 - Essential (primary) hypertension (2) Major depressive disorder, recurrent, in remission: Code(s): F33.40 - Major depressive disorder, recurrent, in remission, unspecified Category: Medical (3) Post herpetic neuralgia: Code(s): B02.29 - Other postherpetic nervous system involvement Category: Medical (4) Obstructive sleep apnea: Code(s): G47.33 - Obstructive sleep apnea (adult) (pediatric) Category: Medical Plan 69 year old for follow up HTN-controlled on current medications FIDEL-compliant with cpap Depression & Anxiety stable on meds. continue BH PHN-stable Orders: Orders MM tomosynthesis screening BI 10/06/25 Z12.31 - Encounter for screening mammogram for malignant neoplasm of breast Hemoglobin A1c 07/30/25 R73.09 - Other abnormal glucose Medications: Refilled clonazepam 0.5 mg PO DAILY PRN 30 tabs 1RF anxiety
[2025-07-30 10:15] VITALS: BP 110/76; PULSE 68; RESP 16; BMI 32.7
--- OUTSIDE RECORDS SUMMARY | 2025-07-30 11:29 | XMS_ITS | Encounter Summary ---
Author Organization [facility] Address [address] [place] [address] Phone Care Team Providers Care Lan Support Specialist Name Role Phone Rosalva Blakely MD Primary Care Provider Encounter Details Date Type Department Care Team (Late st Contact Info) Description 01/07/2018 Procedure Pass [facility], Ct Scan - [address] [address] Social History Tobacco Use Types Packs/Day Years [...] on filedocumented in this encounter Care Teams Lan Support Specialist Relationship Specialty Start Date End Date Rosalva Blakely MD PCP - General 08/09/17 documented as of this encounter Additional Source Comments The information contained in this document represents components of the legal health record. It is not the complete legal health record.[facility]
--- OUTSIDE RECORDS SUMMARY | 2025-07-30 11:29 | XMS_ITS | Clinical Summary ---
Author Organization [facility] Address [address] [place] [address] Phone Care Team Providers Care Agricultural Appraiser Name Role Phone Rosalva Blakely MD Primary [...] EDT) SODIUM 141 133 - 146 mmol/L [facility] CHLORIDE 104 96 - 108 mmol/L [facility] POTASSIUM 3.7 3.3 - 5.1 mmol/L [facility] CO2 27 21 - 35 mmol/L [facility] BUN 18 6 - 19 mg/dL [facility] CREATININE 0.70 0.5 - 1.5 mg/dL [facility] GLUCOSE 101(H) 70 - 99 mg/dL [facility] CALCIUM 9.4 8.4 - 10.3 mg/dL [facility] EGFR 92 >59 mL/min/1.7 3m2 [facility] Comment:If patient is black, multiply result by 1.159. The eGFR calculation has changed from the MDRD equation to the CKD-EPI equation as of December 28, 2017. ANION GAP 14 10 - 20 mmol/L [facility] Blood 01/07/2018 12:2 1 PM EDT 01/07/2018 12:31 PM EDT us Angela Ny PA-C LAB BLOOD ORDERABLES Final Res ult [facility] [address] [place] [address] from Last 3 Months or Most Recently Relevant to Health Maintenance Insurance [employer] MEDEX SUPPLEMENT MEDICARE PART A & B [employer] SUPPLEMENT MEDICARE PART A & B [employer] SUPPLEMENT MEDICARE PART A & B [employer] SUPPLEMENT MEDICARE PART A & B [employer] SUPPLEMENT MEDICARE PART A & B [employer] SUPPLEMENT MEDICARE PART A & B [employer] SUPPLEMENT MEDICARE PART A & B [employer] SUPPLEMENT MEDICARE PART A & B [employer] SU[employer]LEMENT MEDICARE PART A & B Care Teams Agricultural Appraiser Relationship Specialty Start Date End Date Rosalva Blakely MD PCP - General 08/09/17 Additional Source Comments The information contained in this document represents components of the legal health record. It is not the complete legal health record.[facility]
--- OUTSIDE RECORDS SUMMARY | 2025-07-30 11:29 | XMS_ITS | Encounter Summary ---
Author Organization [facility] Address [address] [place] [address] Phone Care Team Providers Care Sleep Medicine Physician Name Role Phone Rosalva Blakely MD Primary Care Provider [phone] Encounter Details Date Type Department Care Team (Late st Contact Info) Description 07/18/2024 Ancillary Orders [facility], X-Ray - [address] [place] [address] Rosalva Blakely MD [address] [place] [address] Cervical radiculopathy (Primary Dx) Social History Tobacco [...] masses on C2. IMPRESSION: Degenerative changes. Result [facility] Rosalva Blakely MD IMG XR SPINE Final Result documented in this encounter Visit Diagnoses Diagnosis Cervical radiculopathy- Primary Brachial neuritis or radiculitis nos Cervical radiculopathy Brachial neuritis or radiculitis nos documented in this encounter Care Teams Sleep Medicine Physician Relationship Specialty Start Date End Date Rosalva Blakely MD PCP - General 08/09/17 documented as of this encounter Additional Source Comments The information contained in this document represents components of the legal health record. It is not the complete legal health record.[facility]
--- OUTSIDE RECORDS SUMMARY | 2025-07-30 11:29 | XMS_ITS | Clinical Summary ---
Author Organization [address] Address [address] [place] [phone] Phone Care Team Providers Care Synchronous Motor Assembler Name Role Phone Rosalva Stevens MD Primary Care Provider [phone] Allergies No known active allergies Medications lisinopriL (PRINIVIL,ZESTR IL) 20 mg tablet Take 1 tablet (20 mg total) by mouth 1 (one) time each day. Active hydroCHLOROthia zide (HYDRODIURIL) 25 mg tablet Take 1 tablet (25 mg total) by mouth 1 (one) time each day. Active clonazePAM (KlonoPIN) 0.5 mg tablet Take 1 tablet (0.5 mg total) by mouth 2 (two) times a day. Max Daily Amount: 1 mg Active cholecalciferol (VITAMIN D-3) 50 mcg (2,000 unit) tablet Take 1 tablet (2,000 Units total) by mouth 1 (one) time each day. Active DULoxetine (CYMBALTA) [address] capsule Take 1 capsule (60 mg total) by mouth 1 (one) time each day. Do not crush or chew. Active omeprazole (PriLOSEC) [address] capsule Take 1 capsule (20 mg total) by mouth 1 (one) time each day. Do not crush or chew. Active multivit-minera ls/folic acid (CENTRUM ADULTS ORAL) Take by mouth. Active lactobacillus acidoph-l.bulga r 100 million cell granules in packet Take 1 packet by mouth. Active Active Problems Problem Noted Date Diagnosed Date CKD (chronic kidney disease) stage 2, GFR 60-89 ml/min 07/25/2025 HTN (hypertension), benign 07/25/2025 Encounters Date Type Department Care Team Description 07/25/2025 1:15 PM EDT Office Visit Nephrology [address] [phone] Te Davis MD CKD (chronic kidney disease) stage 2, GFR 60-89 ml/min (Primary Dx); HTN (hypertension), benign 07/20/2025 Telephone Nephrology [address] [place] [place] [address] Te Davis MD from Last 3 Months Surgical History Surgery Date Site/Laterality Comments NECK SURGERY age 1 PROCEDURE: HISTORICAL NECK SURGERY; COMMENT: Brachial cleft cyst removal HAND SURGERY PROCEDURE: HISTORICAL HAND SURGERY; COMMENT: Trigger finger OTHER SURGICAL HISTORY PROCEDURE: ME DILATION & CURETTAGE DX&/THER NONOBSTETRIC COLONOSCOPY 04/17/2015 PROCEDURE: HISTORICAL COLONOSCOPY; COMMENT: tics and hyperplastic polyp; repeat in 10 yrs under propofol UPPER GASTROINTESTINAL ENDOSCOPY 04/04/2018 PROCEDURE: ME UPPER GI ENDOSCOPY PERFORMED; COMMENT: Large paraesophageal [...] Pressure 111/64 07/25/2025 1:12 PM EDT Pulse 85 03/15/2024 2:54 PM [...] 07/31/2026 1:15 PM EDT Office Visit Nephrology [address] [phone] Te Davis MD [address] [facility] [address] [place] [phone] Health Maintenance Due Date Last Done Comments Colorectal Cancer Screening: Colonoscopy 1955 Pneumococcal Vaccine: 50+ Years (1 of 1 - PCV) 12/24/2003 Zoster Vaccines (1 of 2) 12/24/2003 DTaP,Tdap,and Td Vaccines (3 - Td or Tdap) 09/06/2022 09/06/2012, 06/18/2003 Cholesterol Screening (Lipid Panel) 10/03/2022 Falls Risk Assessment 10/03/2022 Hepatitis C Screening 10/03/2022 Medicare Annual Wellness Visit 10/03/2022 Social Influencers of Health Screening 10/03/2022 Depression Screening 10/25/2024 COVID-19 Vaccine ( season) 2025 08/15/2021, 01/24/2021, 01/01/2021 Influenza Vaccine (#1) 2025 Hypertension/CHF/CAD Annual BMP Blood Test 07/24/2026 07/24/2025 Breast Cancer Screening 11/27/2026 11/27/19 25, 11/18/2023, 11/11/2022, Additional history exists RSV Immunization [...] Procedure Name Priority Date/Time Associated Diagnosis Comments RENAL FUNCTION PANEL Routine 07/24/2025 11:48 AM EDT Stage 3 chronic kidney disease, unspecified whether stage 3a or 3b CKD (CMS/HCC V24, CMS/FORMERLY [facility] V28) MICROALBUMIN CREATININE URINE RATIO Routine 07/24/2025 11:48 AM EDT Stage 3 chronic kidney disease, unspecified whether stage 3a or 3b CKD (CMS/HCC V24, CMS/FORMERLY [facility] V28) MG MAMMO DIGITAL SCREENING W ALEJANDRO BILAT Routine 11/27/2024 11:16 AM EST Encounter for screening mammogram for breast cancer DXA BONE DENSITY STUDY 1+ SITS AXIAL SKEL Routine 11/21/2020 10:04 AM EST Encounter for screening for osteoporosis from Last 3 Months or Most Recently Relevant to Health Maintenance Results * Microalbumin creatinine urine ratio (07/24/2025 11:48 AM EDT) Creatinine, Urine 175.0 mg/dL LAB CHEMISTRY METHOD 07/24/2025 4:41 PM EDT [facility] Microalb, Ur 17.1 0.0 - 29.0 mg/L LAB CHEMISTRY METHOD 07/24/2025 4:41 PM EDT [facility] Microalb/Creat Ratio 10 <30 mg/g creat LAB CHEMISTRY METHOD 07/24/2025 4:41 PM EDT [facility] Urine Urine specimen obtained by clean catch procedure / Unknown Non-blood Collection / Unknown 07/24/2025 11:48 AM EDT 07/24/2025 11:48 AM EDT us Te Davis MD LAB URINE ORDERABLES Final Resu lt [facility] [address] [place] [address], * (ABNORMAL) Renal function panel (07/24/2025 11:48 AM EDT) Sodium 134 133 - 145 mmol/L LAB CHEMISTRY METHOD 07/24/2025 4:12 PM EDT [facility] Potassium 3.5 3.5 - 5.5 mmol/L LAB CHEMISTRY METHOD 07/24/2025 4:12 PM EDT [facility] Chloride 98 96 - 110 mmol/L LAB CHEMISTRY METHOD 07/24/2025 4:12 PM EDT [facility] CO2 28 21 - 32 mmol/L LAB CHEMISTRY METHOD 07/24/2025 4:12 PM EDT [facility] Anion Gap 8 3 - 11 LAB CHEMISTRY METHOD 07/24/2025 4:12 PM T [facility] Glucose 117(H) 70 - 100 mg/dL LAB CHEMISTRY METHOD 07/24/2025 4:[address] [facility] BUN 22 5 - 25 mg/dL LAB CHEMISTRY METHOD 07/24/2025 4:[address] [facility] Creatinine 1.01 0.50 - 1.10 mg/dL LAB CHEMISTRY METHOD 07/24/2025 4:12 PM T [facility] eGFR 60 >=60 mL/min/1. 73m2 LAB CHEMISTRY METHOD 07/24/2025 4:[address] [facility] Comment:Calculation based on the Chronic Kidney Disease Epidemiology Collaboration (CKD-EPI) equation refit without adjustment for race. BUN/Creatinine Ratio 21.8 LAB CHEMISTRY METHOD 07/24/2025 4:[address] [facility] Albumin 4.0 3.2 - 5.0 g/dL LAB CHEMISTRY METHOD 07/24/2025 4:[address] [facility] Calcium 9.4 8.5 - 10.5 mg/dL LAB CHEMISTRY METHOD 07/24/2025 4:[address] [facility] Phosphorus 3.2 2.5 - 4.5 mg/dL LAB CHEMISTRY METHOD 07/24/2025 4:[address] [facility] Blood Venous blood specimen / Unknown Venipuncture / Unknown 07/24/2025 11:48 AM EDT 07/24/2025 11:48 AM EDT us Te Davis MD LAB BLOOD ORDERABLES Final Resu lt [facility] [address] [place] [address], [place] [phone] * MG Mammo Digital Screening w Alejandro bilat (11/27/2024 11:16 AM EST) Anatomical Region Laterality Modality Breast Bilateral Mammography 11/27/2024 11:5 8 AM EST Impressions 11/27/2024 12:00 PM EST No mammographic evidence for malignancy. BI-RADS CATEGORY: 1 - NEGATIVE RECOMMENDATION: Screening bilateral mammogram is recommended in 1 year. Mammo Location: [facility], [address] [place] [address], [id number], . -------- FINAL REPORT -------- Dictated By: Sabi Sampson Dictated Date: 11/27/2024 11:58 ET Assigned Physician: Sabi Sampson Reviewed and Electronically Signed By: Sabi Sampson Signed Date: 11/27/2024 12:00 ET Workstation ID: [id number] Transcribed By: Self Edit Transcribed Date: 11/27/2024 [...] is recommended in 1 year. Mammo Location: [facility], [address] [place] [address], [phone], . -------- FINAL REPORT -------- Dictated By: Sabi Sampson Dictated Date: 11/27/2024 11:58 ET Assigned Physician: Sabi Sampson Reviewed and Electronically Signed By: Sabi Sampson Signed Date: 11/27/2024 12:00 ET Workstation ID: [id number] Transcribed By: Self Edit Transcribed Date: 11/27/2024 [...] Based on the World Health Organization criteria, Magalys Parks should be classified as having normal bone density. [facility] Department of Internal Medicine recommends [...] Based on the World Health Organization criteria, Magalys Parks should beclassified as having normal bone density. [facility] Department of Internal Medicine recommendsusing [...] Recently Relevant to Health Maintenance Insurance MEDICARE [facility] Care Teams Synchronous Motor Assembler Relationship Specialty Start Date End Date Rosalva Stevens MD [address] [place] [address] PCP - General 07/09/15
== END 2025-07-30 10:53 | disposition home or self-care (01) ==
LOC: HO.HMCFM 09:59
PROVIDERS: PCP Internal Medicine; Visit Provider Internal Medicine
DX: I10 Essential (primary) hypertension (principal); F33.40 Major depressive disorder, recurrent, in remission, unspecified; B02.29 Other postherpetic nervous system involvement; G47.33 Obstructive sleep apnea (adult) (pediatric)

== ENCOUNTER → 2025-07-30 09:58 | Outpatient (BNVA) | payer MEDICARE, SELFPAY | PROVIDERS: PCP Internal Medicine; Visit Provider Internal Medicine | DX: I10 Essential (primary) hypertension (principal); F33.40 Major depressive disorder, recurrent, in remission, unspecified; B02.29 Other postherpetic nervous system involvement; G47.33 Obstructive sleep apnea (adult) (pediatric); F41.9 Anxiety disorder, unspecified; Z79.899 Other long term (current) drug therapy; Z99.89 Dependence on other enabling machines and devices | CPT/HCPCS: 99212 ==

== ENCOUNTER → 2025-08-17 11:23 | Outpatient (BNV) | payer MEDICARE, SELFPAY | PROVIDERS: PCP Internal Medicine; Visit Provider Radiology Diagnostic Radiology | DX: M47.813 Spondylosis without myelopathy or radiculopathy, cervicothoracic region (principal); M48.02 Spinal stenosis, cervical region | CPT/HCPCS: 72141 ==

== ENCOUNTER 2025-08-17 11:24 | Outpatient (REF) | payer MEDICARE, SELFPAY ==
--- NOTE | ~2025-08-17 | MR_ITS ---
EXAMINATION: MR CERVICAL SPINE WITHOUT CONTRAST CLINICAL INFORMATION: M 54.12. Radiculopathy, cervical region. COMPARISON: Correlated to x-ray dated June 29, 2025. TECHNIQUE: MRI of the cervical spine was obtained using routine sequences without contrast. FINDINGS: Craniocervical junction is intact. Normal position of the cerebellar tonsils. Patchy hyperintense T2 STIR signal in the marilin and likely white matter cerebellum. No bone marrow STIR signal abnormality. Bone marrow inhomogeneity throughout the axial skeleton. Multilevel marginal osteophyte formation and endplate irregularity, decreased intervertebral disc height C3 T2 resulting in a reverse kyphotic deformity at C4-5. Grade 1 anterolisthesis C3-4, C7-T1 and likely T2-3. Buckling deformity of the dorsal aspect of the thecal sac secondary to ligamentum flavum hypertrophy at C7-T1. Cervical spinal cord signal is normal. C2-3: No disc herniation. No neuroforamina stenosis. C3-4: Broad-based disc osteophyte complex formation. Ventral deformity of the thecal sac. No cord compression. No neuroforamina stenosis. C4-5: Broad-based disc osteophyte compresses formation resulting in ventral deformity of the thecal sac. Left neuroforamina stenosis. C5-6: Broad-based disc osteophyte compresses formation resulting in ventral deformity of the spinal cord. Bilateral neuroforamina stenosis, right greater than the left side on a degenerative basis. C6-7: Broad-based disc osteophyte complex formation resulting in ventral deformity of the thecal sac. Right neuroforamina narrowing on a degenerative basis. C7-T1: Grade 1 anterolisthesis facet joint and ligamentum flavum hypertrophy resulting in CSF effacement of thecal sac. Bilateral neuroforamina stenosis. T1-2: Broad-based disc osteophyte consummation resulting in ventral deformity of the thecal sac. No neuroforamina stenosis. No prevertebral compartment hematoma, mass or fluid collection. Flow-void signal within the main vessels is normal. Codominant vertebral arteries. MR/MR cervical spine wo con IMPRESSION: Multilevel cervical spondylosis C3 T2 resulting in kyphotic deformity likely swan deformity causing a grade 1 anterolisthesis C7-T1 severe central spinal canal stenosis and likely cord compression without cord edema and or adenopathy. Central spinal canal stenosis and bilateral neuroforamina stenosis from C3-4 to C6-7 without cord compression. Electronically signed by: Jovan Paula MD 08/17/2025 12:23 PM EDT
--- OUTSIDE RECORDS SUMMARY | 2025-08-17 13:55 | XMS_ITS | Encounter Summary ---
Author Organization [facility] Address [address] [place] [address] Phone Care Team Providers Care Yarder Puncher Name Role Phone Rosalva Blakely MD Primary Care Provider [phone] Encounter Details Date Type Department Care Team (Late st Contact Info) Description 07/18/2024 Ancillary Orders [facility], X-Ray - [address] [place] [address] Rosalva Blakely MD [address] [place] [address] Cervical radiculopathy (Primary Dx) Social History Tobacco [...] as of this encounter Plan of Treatment Upcoming Encounters Date Type Department Care Team (Late st Contact Info) Description 10/03/2025 3:15 PM EST Office Visit [address] [address] Sirena Dominguez MD [address] [place] [address] Cee Osman, PT [address] [place] [address] [email or web address] 10/05/2025 9:45 AM EST Office Visit [address] [address] Sirena Dominguez MD [address] [place] [address] Cee Osman, PT [address] [place] [address] [email or web address] 10/09/2025 1:00 PM EST Office Visit [address] [address] Sirena Dominguez MD [address] [place] [address] Cee Osman, PT [address] [place] [address] [email or web address] 10/11/2025 1:00 PM EST Office Visit [address] [address] Sirena Dominguez MD [address] [place] [address] Cee Osman, PT [address] [place] [address] [email or web address] 10/15/2025 10:30 AM EST Office Visit [address] [address] Sirena Dominguez MD [address] [place] [address] Cee Osman, PT [address] [place] [address] [email or web address] 10/23/2025 11:15 AM EST Office Visit [address] [address] Sirena Dominguez MD [address] [place] [address] Cee Osman, PT [address] [place] [address] [email or web address] 10/26/2025 10:30 AM EST Office Visit [address] [address] Sirena Dominguez MD [address] [place] [address] Cee Osman, PT [address] [place] [address] [email or web address] 10/30/2025 11:15 AM EST Office Visit [address] [address] Sirena Dominguez MD [address] [place] [address] Cee Osman, PT [address] [place] [address] documented as of this encounter Results * [...] lateral masses on C2. IMPRESSION: Degenerative changes. Rosalva Blakely MD IMG XR SPINE Final Result documented in this encounter Visit Diagnoses Diagnosis Cervical radiculopathy- Primary Brachial neuritis or radiculitis nos Cervical radiculopathy Brachial neuritis or radiculitis nos documented in this encounter Care Teams Yarder Puncher Relationship Specialty Start Date End Date Rosalva Blakely MD PCP - General 08/09/17 documented as of this encounter Additional Source Comments The information contained in this document represents components of the legal health record. It is not the complete legal health record.[facility]
--- OUTSIDE RECORDS SUMMARY | 2025-08-17 13:55 | XMS_ITS | Encounter Summary ---
Author Organization [facility] Address [address] [place] [address] Phone Care Team Providers Care Warhead Maintenance Specialist Name Role Phone Rosalva Blakely MD Primary Care Provider Encounter Details Date Type Department Care Team (Late st Contact Info) Description 01/07/2018 Procedure Pass , Ct Scan - [address] [address] Social History Tobacco Use Types Packs/Day Years [...] Description 10/03/2025 3:15 PM EST Office Visit [address] [address] Sirena Dominguez MD [address] [place] [address] Cee Osman, PT [address] [place] [address] 10/05/2025 9:45 AM EST Office Visit [address] [place] [address] Sirena Dominguez MD [address] [place] [address] Cee Osman, PT [address] [place] [address] [email or web address] 10/09/2025 1:00 PM EST Office Visit [address] [address] Sirena Dominguez MD [address] [place] [address] Cee Osman, PT [address] [place] [address] [email or web address] 10/11/2025 1:00 PM EST Office Visit [address] [address] Sirena Dominguez MD [address] [place] [address] Cee Osman, PT [address] [place] [address] [email or web address] 10/15/2025 10:30 AM EST Office Visit [address] [address] Sirena Dominguez MD [address] [place] [address] Cee Osman, PT [address] [place] [address] [email or web address] 10/23/2025 11:15 AM EST Office Visit [address] [address] Sirena Dominguez MD [address] [place] [address] Cee Osman, PT [address] [place] [address] [email or web address] 10/26/2025 10:30 AM EST Office Visit [address] [address] Sirena Dominguez MD [address] [place] [address] Cee Osman, PT [address] [place] [address] [email or web address] 10/30/2025 11:15 AM EST Office Visit [address] [address] Sirena Dominguez MD [address] [place] [address] Cee Osman, PT [address] [place] [address] [email or web address] documented as of this encounter Visit Diagnoses Not on filedocumented in this encounter Care Teams Warhead Maintenance Specialist Relationship Specialty Start Date End Date Rosalva Blakely MD PCP - General 08/09/17 documented as of this encounter Additional Source Comments The information contained in this document represents components of the legal health record. It is not the complete legal health record.[facility]
--- OUTSIDE RECORDS SUMMARY | 2025-08-17 13:55 | XMS_ITS | Clinical Summary ---
Author Organization [facility] Address [address] [facility] [address] [place] [address] Phone Care Team Providers Care Strand Galvanizer Name Role Phone Rosalva Blakely MD Primary [...] Active Active Problems No known active problems Encounters Date Type Department Care Team Description 08/14/2025 Transcribe Orders [facility] [address] [place] [address] Angela Taylor Encounter for rehabilitation (Primary Dx) from Last 3 Months Social History Tobacco Use Types Packs/Day Years [...] 02/14/2022 1:50 PM EDT Plan of Treatment Upcoming Encounters Date Type Department Care Team (Late st Contact Info) Description 10/03/2025 3:15 PM EST Office Visit [facility] [address] [place] [address] Sirena Dominguez MD [address] [place] [address] Cee Osman, PT [address] [place] [address] [email or web address] 10/05/2025 9:45 AM EST Office Visit [address] [address] Sirena Dominguez MD [address] [place] [address] Cee Osman, PT [address] [place] [address] [email or web address] 10/09/2025 1:00 PM EST Office Visit [address] [address] Sirena Dominguez MD [address] [place] [address] Cee Osman, PT [address] [place] [address] [email or web address] 10/11/2025 1:00 PM EST Office Visit [address] [address] Sirena Dominguez MD [address] [place] [address] Cee Osman, PT [address] [place] [address] 10/15/2025 10:30 AM EST Office Visit [address] [address] Sirena Dominguez MD [address] [place] [address] Cee Osman, PT [address] [place] [address] 10/23/2025 11:15 AM EST Office Visit [address] [address] Sirena Dominguez MD [address] [place] [address] Cee Osmna, PT [address] [place] [address] 10/26/2025 10:30 AM EST Office Visit [address] [address] Sirena Dominguez MD [address] [place] [address] Cee Osman, PT [address] [place] [address] 10/30/2025 11:15 AM EST Office Visit [address] [address] Sirena Dominguez MD [address] [place] [address] Cee Osman, PT [address] [place] [address] Health Maintenance Due Date Last Done Comments [...] EDT) SODIUM 141 133 - 146 mmol/L [facility] CHLORIDE 104 96 - 108 mmol/L [facility] POTASSIUM 3.7 3.3 - 5.1 mmol/L [facility] CO2 27 21 - 35 mmol/L [facility] BUN 18 6 - 19 mg/dL [facility] CREATININE 0.70 0.5 - 1.5 mg/dL [facility] GLUCOSE 101(H) 70 - 99 mg/dL [facility] CALCIUM 9.4 8.4 - 10.3 mg/dL [facility] EGFR 92 >59 mL/min/1.7 3m2 [facility] Comment:If patient is black, multiply result by 1.159. The eGFR calculation has changed from the MDRD equation to the CKD-EPI equation as of December 28, 2017. ANION GAP 14 10 - 20 mmol/L [facility] Blood 01/07/2018 12:2 1 PM EDT 01/07/2018 12:31 PM EDT us Angela Ny PA-C LAB BLOOD ORDERABLES Final Res ult [facility] [address] [place] [address] from Last 3 Months or Most Recently Relevant to Health Maintenance Insurance [employer] SUPPLEMENT MEDICARE PART A & B [employer] MEDICARE PART A & B [employer] SUPPLEMENT MEDICARE PART A & B [employer] SUPPLEMENT MEDICARE PART A & B [employer] SUPP[employer] MEDICARE PART A & B [employer] SUPP[employer] MEDICARE PART A & B [employer] SUPPLE[employer] MEDICARE PART A & B [employer] SU[employer] MEDICARE PART A & B [employer] MEDICARE PART A & B Care Teams Strand Galvanizer Relationship Specialty Start Date End Date Rosalva Blakely MD PCP - General 08/09/17 Additional Source Comments The information contained in this document represents components of the legal health record. It is not the complete legal health record.[facility]
--- OUTSIDE RECORDS SUMMARY | 2025-08-17 13:55 | XMS_ITS | Encounter Summary ---
Author Organization [facility] Address [address] [place] [phone] Phone Care Team Providers Care Metal Fence Erector Name Role Phone Rosalva Blakely MD Primary Care Provider [phone] Reason for Referral * Physical Therapy (Within 1 month) - New Request Specialty Diagnoses / Procedures Referred By Nicola hernández Referred To Contact Physical Therapy Diagnoses Encounter for rehabilitation Sirena Dominguez MD [address] [place] [phone] Phone: tel: fax: [facility] [address] [place] [address] Phone: tel: Referral ID Status Reason Start Date Expiration Date V isits Requested Visits Authorized [id number] New Request 08/14/2025 08/14/2026 1 1 Encounter Details Date Type Department Care Team (Latest Contact Info) Description 08/14/2025 Transcribe Orders [facility] [address] [place] [address] [email or web address] Encounter for rehabilitation (Primary Dx) Social History Tobacco Use Types [...] Description 10/03/2025 3:15 PM EST Office Visit [address] [address] Sirena Dominguez MD [address] [place] [address] Cee Osman, PT [address] [place] [address] 10/05/2025 9:45 AM EST Office Visit [address] [address] Sirena Dominguez MD [address] [place] [address] Cee Osman, PT [address] [place] [address] 10/09/2025 1:00 PM EST Office Visit [address] [address] Sirena Dominguez MD [address] [place] [address] Cee Osman, PT [address] [place] [address] 10/11/2025 1:00 PM EST Office Visit [address] [address] Sirena Dominguez MD [address] [place] [address] Cee Osman, PT [address] [place] [address] 10/15/2025 10:30 AM EST Office Visit [address] [address] Sirena Dominguez MD [address] [place] [address] Cee Osman, PT [address] [place] [address] 10/23/2025 11:15 AM EST Office Visit [address] [address] Sirena Dominguez MD [address] [place] [address] Cee Osman, PT [address] [place] [address] 10/26/2025 10:30 AM EST Office Visit [address] [address] Sirena Dominguez MD [address] [place] [address] Cee Osman, PT [address] [place] [address] 10/30/2025 11:15 AM EST Office Visit [facility] [address] [place] [address] Sirena Dominguez MD [address] [place] [address] Cee Osman, PT [address] [place] [address] [email or web address] Scheduled Referrals Name Type Priority Associated Diagnoses Orde r Schedule Ambulatory referral to [facility] Physical Therapy Outpatient Referral Routine Encounter for rehabilitation Ordered: 08/14/2025 documented as of this encounter Visit Diagnoses Diagnosis Encounter for rehabilitation- Primary documented in this encounter Care Teams Metal Fence Erector Relationship Specialty Start Date End Date Rosalva Blakely MD PCP - General 08/09/17 documented as of this encounter Additional Source Comments The information contained in this document represents components of the legal health record. It is not the complete legal health record.[facility]
--- OUTSIDE RECORDS SUMMARY | 2025-08-17 13:55 | XMS_ITS | Clinical Summary ---
Author Organization [address] Address [address] [place] [phone] Phone Care Team Providers Care Pathology Technician Name Role Phone Rosalva Stevens MD Primary Care Provider Allergies No known active allergies Medications lisinopriL [...] 07/25/2025 1:15 PM EDT Office Visit Nephrology [address] [phone] Te Davis MD CKD (chronic kidney disease) stage 2, GFR 60-89 ml/min (Primary Dx); HTN (hypertension), benign 07/20/2025 Telephone Nephrology [id number] [place] [phone] Te Davis MD from Last 3 Months Surgical History Surgery Date Site/Laterality Comments NECK SURGERY age 1 PROCEDURE: HISTORICAL NECK SURGERY; COMMENT: Brachial cleft cyst removal HAND SURGERY PROCEDURE: HISTORICAL HAND SURGERY; COMMENT: Trigger finger OTHER SURGICAL HISTORY PROCEDURE: CA DILATION & CURETTAGE DX&/THER NONOBSTETRIC COLONOSCOPY 04/17/2015 PROCEDURE: HISTORICAL COLONOSCOPY; COMMENT: tics and hyperplastic polyp; repeat in 10 yrs under propofol UPPER GASTROINTESTINAL ENDOSCOPY 04/04/2018 PROCEDURE: CA UPPER GI ENDOSCOPY PERFORMED; COMMENT: Large paraesophageal [...] Care Team (Late st Contact Info) Description 11/29/2025 11:00 AM EST Appointment Radiology Department - [address] [phone] 07/31/2026 1:15 PM EDT Office Visit Nephrology - [address] [phone] Te Davis MD [address] [facility] [address] [place] [phone] Health Maintenance Due Date Last Done Comments [...] Test 07/24/2026 07/24/2025 Breast Cancer Screening 11/27/2026 11/27/19, 11/18/2023, 11/11/2022, [...] stage 3a or 3b CKD (CMS/HCC V24, CMS/[facility] V28) MICROALBUMIN CREATININE URINE RATIO Routine 07/24/2025 11:48 AM EDT Stage 3 chronic kidney disease, unspecified whether stage 3a or 3b CKD (CMS/HCC V24, CMS/HCC V28) MG MAMMO DIGITAL SCREENING W ALEJANDRO [...] LAB CHEMISTRY METHOD 07/24/2025 4:41 PM EDT [facility] Microalb, Ur 17.1 0.0 - 29.0 mg/L LAB CHEMISTRY METHOD 07/24/2025 4:41 PM EDT [facility] Microalb/Creat Ratio 10 <30 mg/g creat LAB CHEMISTRY METHOD 07/24/2025 4:41 PM EDT [facility] Urine Urine specimen obtained by clean catch procedure / Unknown Non-blood Collection / Unknown 07/24/2025 11:48 AM EDT 07/24/2025 11:48 AM EDT us Te Davis MD LAB URINE ORDERABLES Final Resu lt [facility] [address] [place] [address], * (ABNORMAL) Renal function panel (07/24/2025 11:48 AM EDT) Sodium 134 133 - 145 mmol/L LAB CHEMISTRY METHOD 07/24/2025 4:12 PM EDT [facility] Potassium 3.5 3.5 - 5.5 mmol/L LAB CHEMISTRY METHOD 07/24/2025 4:12 PM EDT [facility] Chloride 98 96 - 110 mmol/L LAB CHEMISTRY METHOD 07/24/2025 4:12 PM EDT [facility] CO2 28 21 - 32 mmol/L LAB CHEMISTRY METHOD 07/24/2025 4:12 PM [facility] Anion Gap 8 3 - 11 LAB CHEMISTRY METHOD 07/24/2025 4:12 PM [facility] Glucose 117(H) 70 - 100 mg/dL LAB CHEMISTRY METHOD 07/24/2025 4:12 PM [facility] BUN 22 5 - 25 mg/dL LAB CHEMISTRY METHOD 07/24/2025 4:12 PM T [facility] Creatinine 1.01 0.50 - 1.10 mg/dL LAB CHEMISTRY METHOD 07/24/2025 4:12 PM [facility] eGFR 60 >=60 mL/min/1. 73m2 LAB CHEMISTRY METHOD 07/24/2025 4:12 PM [facility] Comment:Calculation based on the Chronic Kidney Disease Epidemiology Collaboration (CKD-EPI) equation refit without adjustment for race. BUN/Creatinine Ratio 21.8 LAB CHEMISTRY METHOD 07/24/2025 4:12 PM [facility] Albumin 4.0 3.2 - 5.0 g/dL LAB CHEMISTRY METHOD 07/24/2025 4:12 PM [facility] Calcium 9.4 8.5 - 10.5 mg/dL LAB CHEMISTRY METHOD 07/24/2025 4:12 PM [facility] Phosphorus 3.2 2.5 - 4.5 mg/dL LAB CHEMISTRY METHOD 07/24/2025 4:12 PM [facility] Blood Venous blood specimen / Unknown Venipuncture / Unknown 07/24/2025 11:48 AM EDT 07/24/2025 11:48 AM EDT us Te Davis MD LAB BLOOD ORDERABLES Final Resu lt [facility] [address] [place] [address], * MG Mammo Digital Screening w Alejandro bilat (11/27/2024 11:16 AM EST) Anatomical Region Laterality Modality Breast Bilateral Mammography 11/27/2024 11:5 8 AM EST Impressions 11/27/2024 12:00 PM EST No mammographic evidence for malignancy. BI-RADS CATEGORY: 1 - NEGATIVE RECOMMENDATION: Screening bilateral mammogram is recommended in 1 year. Mammo Location: [facility], [address] [place] [address], [id number], . -------- FINAL REPORT -------- Dictated By: Sabi Sampson Dictated Date: 11/27/2024 11:58 ET Assigned Physician: Sabi Sampson Reviewed and Electronically Signed By: Sabi Sampson Signed Date: 11/27/2024 12:00 ET Workstation ID: [id number] Transcribed By: Self Edit Transcribed Date: 11/27/2024 [...] is recommended in 1 year. Mammo Location: [facility], [address] [place] [address], [id number], . -------- FINAL REPORT -------- Dictated By: Sabi Sampson Dictated Date: 11/27/2024 11:58 ET Assigned Physician: Sabi Sampson Reviewed and Electronically Signed By: Sabi Sampson Signed Date: 11/27/2024 12:00 ET Workstation ID: [id number] Transcribed By: Self Edit Transcribed Date: 11/27/2024 11:58 ET Rosalva Stevens MD IMG BI PROCEDURES Final [...] or over-estimation of fracture risk by FRAX. us Giovanna NGUYEN IMG DXA PROCEDURES Final R esult from Last 3 Months or Most Recently Relevant to Health Maintenance Insurance [facility] Care Teams Pathology Technician Relationship Specialty Start Date End Date Rosalva Stevens MD [address] [place] [phone] PCP - General 07/09/15
== END 2025-08-17 11:25 | disposition home or self-care (01) ==
LOC: HO.MRI 11:24
PROVIDERS: PCP Internal Medicine; Visit Provider Internal Medicine
DX: M54.12 Radiculopathy, cervical region (principal); M54.2 Cervicalgia
CPT/HCPCS: 72141